=== PATIENT | male | born 1935 | race African-American/Black ===

== ENCOUNTER 2018-03-31 20:14 | Inpatient (IN) | payer MEDICARE, OTHER ==
--- NOTE | 2018-03-31 20:55 | ED Physician Chart ---
ED Chief Complaint/HPI - Patient Information Date Seen:: 03/31/18 Time Seen:: 20:50 Chief Complaint:: agitation History of Present Illness:: She has been reportedly combative, agitated, anxious and refusing medications his extended care facility. Allergies:: Allergies Allergy/AdvReac Type Severity Reaction Status Date / Time No Known Allergies Allergy Verified 03/31/18 20:31 Vitals:: Vital Signs - 8 hr 03/31/18 20:15 Temp 98.2 F HR 66 RR 17 BP 206/89 O2 Sat % 97 Historian:: Patient ED Review of Systems - Review of Systems General/Constitutional: No fever, No chills, No weight loss, No weakness, No diaphoresis, No edema, No loss of appetite Skin: No skin lesions, No rash, No bruising Head: No headache, No light-headedness Eyes: No loss of vision, No pain, No diplopia ENT: No earache, No nasal drainage, No sore throat, No tinnitus Neck: No neck pain, No swelling, No thyromegaly, No stiffness, No mass noted Cardio Vascular: No chest pain, No palpitations, No PND, No orthopnea, No edema Pulmonary: No SOB, No cough, No sputum, No wheezing GI: No nausea, No vomiting, No diarrhea, No pain, No melena, No hematochezia, No constipation, No hematemesis G/U: No dysuria, No frequency, No hematuria Musculoskeletal: No bone or joint pain, No back pain, No muscle pain Endocrine: No polyuria, No polydipsia Psychiatric: Prior psych history, Anxiety Hematopoietic: No bruising, No lymphadenopathy Allergic/Immuno: No urticaria, No angioedema Neurological: No syncope, No focal symptoms, No weakness, No paresthesia, No headache, No seizure, No dizziness, No confusion, No vertigo ED Past Medical History - Past Medical History Past Medical History: HTN, Dementia, Other (hypercholesterolemia; anal polyp; chronic renal disease; Alzheimer's disease) Family History: Other (unavailable) Social History: Care Facility Surgical History: other (unavailable) Psychiatricy History: Dementia Medication: Reviewed Family Medical History - Family Member Mother History Unknown: Yes ED Physical Exam - Physical Examination General/Constitutional: Well-developed, well-nourished, Alert, No distress Other Gen/Cons comments:: Patient is alert but confused. He does not know the correct year Head: Atraumatic Eyes: Lids, conjuctiva normal Skin: Nl inspection, No rash ENMT: External ears, nose nl, TM canals nl, Nasal exam nl Other ENMT comments:: Poor dental hygiene with some teeth missing and 3/4 peridontal disease Neck: No nuchal rigidity Respiratory: Nl effort/Exclusion, Clear to Auscultation, No Wheeze/Rhonchi/Rales Cardio Vascular: RRR, No murmur, gallop, rubs, NL S1 S2 GI: No tenderness/rebounding/guarding, No organomegaly, No hernia, Nondistended , No mass/bruits Extremities: Normal digits & nails Neuro/Psych: No focal deficits ED Labs/Radiology/EKG Results - Lab Results Results: Laboratory Results WBC 3.6 Th/cmm (4.8-10.8) L 03/31/18 21:05 RBC 4.33 Mil/cmm (3.80-5.80) 03/31/18 21:05 Hgb 12.2 gm/dL (12-16) 03/31/18 21:05 Hct 38.4 % (41.0-60) L 03/31/18 21:05 MCV 88.7 fl (80-99) 03/31/18 21:05 MCH 28.1 pg (27.0-31.0) 03/31/18 21:05 MCHC Differential 31.7 pg (28.0-36.0) 03/31/18 21:05 RDW 12.4 % (11.5-20.0) 03/31/18 21:05 Plt Count 182 Th/cmm (150-400) 03/31/18 21:05 MPV 7.6 fl 03/31/18 21:05 Neutrophils % 50.0 % (40.0-80.0) 03/31/18 21:05 Lymphocytes % 30.6 % (20.0-50.0) 03/31/18 21:05 Monocytes % 14.8 % (2.0-10.0) H 03/31/18 21:05 Eosinophils % 2.5 % (0.0-5.0) 03/31/18 21:05 Basophils % 2.1 % (0.0-2.0) H 03/31/18 21:05 Sodium 142 mEq/L (136-145) 03/31/18 21:05 Potassium 3.9 mEq/L (3.5-5.1) 03/31/18 21:05 Chloride 109 mEq/L (98-107) H 03/31/18 21:05 Carbon Dioxide 27.1 mEq/L (21.0-31.0) 03/31/18 21:05 Anion Gap 9.8 (7.0-16.0) 03/31/18 21:05 BUN 26 mg/dL (7-25) H 03/31/18 21:05 Creatinine 1.3 mg/dL (0.7-1.3) 03/31/18 21:05 Est GFR ( Amer) TNP 03/31/18 21:05 Est GFR (Non-Af Amer) TNP 03/31/18 21:05 BUN/Creatinine Ratio 20.0 03/31/18 21:05 Glucose 98 mg/dL (70-105) 03/31/18 21:05 Whole Bld Lactic Acid 0.85 mmol/L (0.60-1.99) 03/31/18 21:05 Calcium 9.2 mg/dL (8.6-10.3) 03/31/18 21:05 Total Bilirubin 0.3 mg/dL (0.3-1.0) 03/31/18 21:05 AST 11 U/L (13-39) L 03/31/18 21:05 ALT 7 U/L (7-52) 03/31/18 21:05 Alkaline Phosphatase 56 U/L (34-104) 03/31/18 21:05 Total Protein 6.4 gm/dL (6.0-8.3) 03/31/18 21:05 Albumin 3.7 gm/dL (4.2-5.5) L 03/31/18 21:05 Globulin 2.7 gm/dL 03/31/18 21:05 Albumin/Globulin Ratio 1.4 (1.0-1.8) 03/31/18 21:05 Triglycerides 80 mg/dL (<150) 03/31/18 21:05 Cholesterol 150 mg/dL (<200) 03/31/18 21:05 LDL Cholesterol Direct 106 mg/dL (75-193) 03/31/18 21:05 HDL Cholesterol 38 mg/dL (23-92) 03/31/18 21:05 Urine Source CLEAN C 03/31/18 21:33 Urine Color YELLOW 03/31/18 21:33 Urine Clarity CLEAR (CLEAR) 03/31/18 21:33 Urine pH 7.0 (4.6 - 8.0) 03/31/18 21:33 Ur Specific [place] 1.020 (1.005-1.030) 03/31/18 21: Urine Protein NEGATIVE mg/dL (NEGATIVE) 03/31/18 21: Urine Glucose (UA) NEGATIVE mg/dL (NEGATIVE) 03/31/18 21: Urine Ketones NEGATIVE mg/dL (NEGATIVE) 03/31/18 21: Urine Blood NEGATIVE (NEGATIVE) 03/31/18 21: Urine Nitrate NEGATIVE (NEGATIVE) 03/31/18 21: Urine Bilirubin NEGATIVE (NEGATIVE) 03/31/18: Urine Urobilinogen 1.0 E.U./dL (0.2 - 1.0) 03/31/18 21: Ur Leukocyte Esterase NEGATIVE (NEGATIVE) 03/31/18 21:33 Urine RBC NONE SEEN /hpf (0-5) 03/31/18 21:33 Urine WBC 2-5 /hpf (0-5) 03/31/18 21:33 Ur Epithelial Cells NONE SEEN /lpf (FEW) 03/31/18 21:33 Urine Bacteria FEW /hpf (NONE SEEN) 03/31/18 21:33 Salicylates < 25.0 mg/L (30.0-100.0) L 03/31/18 21: Urine Opiates Screen NEGATIVE (NEGATIVE) 03/31/18 21:33 Urine Methadone Screen NEGATIVE (NEGATIVE) 03/31/18 21: Acetaminophen < 10.0 ug/mL (10.0-30.0) L 03/31/18 21: Ur Barbiturates Screen NEGATIVE (NEGATIVE) 03/31/18 21:33 Ur Tricyclics Screen NEGATIVE (NEGATIVE) 03/31/18 21:33 Ur Phencyclidine Scrn NEGATIVE (NEGATIVE) 03/31/18 21:33 Amphetamines Screen NEGATIVE (NEGATIVE) 03/31/18 21: U Methamphetamines Scrn NEGATIVE (NEGATIVE) 03/31/18 21: U Benzodiazepines Scrn NEGATIVE (NEGATIVE) 03/31/18 21:33 U Cocaine Metab Screen NEGATIVE (NEGATIVE) 03/31/18 21:33 U Cannabinoids Screen NEGATIVE (NEGATIVE) 03/31/18 21:33 Ethyl Alcohol < 10 mg/dL (0-10) 03/31/18 21:05 - EKG Interpretations Rate & Rhythm: normal sinus rhythm with a rate of 64 [place]: normal ED Septic Shock - . Is Septic Shock (SBP<90, OR Lactate>4 mmol\L) present?: No - <6hrs of presentation: Vital Signs: Vital Signs - 8 hr 03/31/18 20:15 Temp 98.2 F HR 66 RR 17 BP 206/89 O2 Sat % 97 ED Reassessment (Disposition) - Reassessment Reassessment Condition:: Improved - Diagnosis Diagnosis:: Dementia with agitation; hypertension; leukemia - Patient Disposition Admitted to:: [facility] Admitting Medical Physician:: Lionel Quesada Admitting Psych Physician:: Janice Yi Condition at Disposition:: Stable, Improved
[2018-03-31 21:11] LABS: % BASOPHILS 2.1 % (0.0-2.0); % EOSINOPHILS 2.5 % (0.0-5.0); % LYMPHOCYTES 30.6 % (20.0-50.0); % MONOCYTES 14.8 % (2.0-10.0); BASOPHILE ABSOLUTE 0.1 Th/cumm (0-0.2); EOSINOPHILE ABSOLUTE 0.1 Th/cmm (0.1-0.4); HEMATOCRIT 38.4 % (41.0-60); HEMOGLOBIN 12.2 gm/dL (12-16); LYMPHOCYTE ABSOLUTE 1.1 Th/cmm (1.5-3.0); MEAN CELL VOLUME 88.7 fl (80-99); MEAN CORPUSCULAR HEMOGLOBIN 28.1 pg (27.0-31.0); MEAN CORPUSCULAR HGB CONC 31.7 pg (28.0-36.0); MEAN PLATELET VOLUME 7.6 fl; MONOCYTE ABSOLUTE 0.5 Th/cmm (0.3-1.0); NEUTROPHILE ABSOLUTE 1.8 Th/cmm (1.8-8.0); PLATELET COUNT 182 Th/cmm (150-400); RED BLOOD COUNT 4.33 Mil/cmm (3.80-5.80); RED CELL DISTRIBUTION WIDTH 12.4 % (11.5-20.0)
[2018-03-31 21:21] LABS: WHITE BLOOD COUNT 3.6 Th/cmm (4.8-10.8)
[2018-03-31 21:27] LABS: ALB/GLOB RATIO 1.4 (1.0-1.8); ALBUMIN 3.7 gm/dL (4.2-5.5); ALKALINE PHOSPHATASE 56 U/L (34-104); ANION GAP 9.8 (7.0-16.0); BILIRUBIN,TOTAL 0.3 mg/dL (0.3-1.0); BUN - UREA NITROGEN 26 mg/dL (7-25); CALCIUM SERUM 9.2 mg/dL (8.6-10.3); CARBON DIOXIDE 27.1 mEq/L (21.0-31.0); CHLORIDE 109 mEq/L (98-107); CHOLESTEROL 150 mg/dL (<200); CREATININE - SERUM 1.3 mg/dL (0.7-1.3); GLUCOSE 98 mg/dL (70-105); HDL -HIGH DENSITY LIPOPROTEIN 38 mg/dL (23-92); POTASSIUM SERUM 3.9 mEq/L (3.5-5.1); SALICYLATES (ASPIRIN) < 25.0 mg/L (30.0-100.0); SGOT 11 U/L (13-39); SGPT/ALT 7 U/L (7-52); SODIUM SERUM 142 mEq/L (136-145); TOTAL PROTEIN,SERUM 6.4 gm/dL (6.0-8.3); TRIGLYCERIDES 80 mg/dL (<150)
[2018-03-31 21:31] LABS: ACETAMINOPHEN < 10.0 ug/mL (10.0-30.0)
[2018-03-31 21:40] LABS: URINE SOURCE CLEAN C
[2018-03-31 21:45] LABS: URINE BILIRUBIN NEGATIVE (NEGATIVE); URINE BLOOD NEGATIVE (NEGATIVE); URINE GLUCOSE (UA) NEGATIVE (NEGATIVE); URINE KETONE NEGATIVE (NEGATIVE); URINE LEUKOCYTE ESTERASE NEGATIVE (NEGATIVE); URINE NITRATE NEGATIVE (NEGATIVE); URINE PROTEIN NEGATIVE (NEGATIVE)
[2018-03-31 21:50] LABS: URINE CLARITY CLEAR (CLEAR); URINE COLOR YELLOW; URINE MICROSCOPIC INDICATED? YES
[2018-03-31 21:51] LABS: URINE BACTERIA FEW /hpf (NONE SEEN); URINE EPITHELIAL CELLS NONE SEEN /lpf (FEW); URINE RBC NONE SEEN /hpf (0-5)
[2018-03-31 21:53] LABS: AMPHETAMINE URINE NEGATIVE (NEGATIVE); BARBITURATES URINE NEGATIVE (NEGATIVE); COCAINE METABOLITE QUAL URINE NEGATIVE (NEGATIVE); METHAMPHETAMINES QUAL URINE NEGATIVE (NEGATIVE); OPIATES (MORPHINE) QUAL. URINE NEGATIVE (NEGATIVE); PHENCYCLIDINE (PCP) URINE NEGATIVE (NEGATIVE); TRICYCLICS (TCA) QUAL. URINE NEGATIVE (NEGATIVE)
[2018-03-31 21:54] LABS: BENZODIAZEPINES QUAL URINE NEGATIVE (NEGATIVE); CANNABINOID THC NEGATIVE (NEGATIVE); METHADONE URINE NEGATIVE (NEGATIVE)
[2018-03-31 22:52] VITALS: BP 186/67
[2018-03-31] MEDS ORDERED: Maalox 30 mL Cup PO PRN (22:52)
[2018-03-31] MEDS ORDERED: Magnesium Hydroxide (MOM) 30 mL UDC PO PRN (22:52)
[2018-03-31 23:36] LABS: CHOLESTEROL 153 mg/dL (<200); HDL -HIGH DENSITY LIPOPROTEIN 38 mg/dL (23-92); TRIGLYCERIDES 86 mg/dL (<150)
[2018-04-01] MEDS: Multivitamin Tab PO SCH (09:48)
--- NOTE | 2018-04-01 11:02 | History & Physical ---
ADMIT DATE: 04/01/2018 HISTORY OF PRESENT ILLNESS: The patient is severely agitated and anxious. The patient was refusing his medications and very hostile. The patient was brought to the Emergency Room at [facility] for psych evaluation. He was medically cleared and was admitted. REVIEW OF SYSTEMS: No nausea, no vomiting, no diarrhea, no polyuria, no polydipsia. PAST MEDICAL HISTORY: History of hypertension, dementia, history of chronic renal failure. PHYSICAL EXAMINATION: HEAD: Normal. ENT: Normal. NECK: Supple, nontender. LUNGS: Clear. CARDIOVASCULAR SYSTEM: S1, S2 heard. ABDOMEN: Soft. Bowel sounds are heard. CENTRAL NERVOUS SYSTEM: Grossly normal. ASSESSMENT AND PLAN: Diagnoses of severe agitation, underlying dementia, hypertension, history of leukemia were made. The patient was admitted and I will follow the patient along with psychiatrist. JOB# [id number]
[2018-04-02] MEDS: Multivitamin Tab PO SCH (09:39)
--- NOTE | 2018-04-02 10:19 | Internal Medicine Prog Note ---
Internal Medicine Subjective - Subjective Patient seen and examined:: chart reviewed Patient is:: awake, agitated, other (anxious) Per staff patient has:: no episodes of fall Internal Medicine Objective - Results Result Diagrams: 03/31/18 21:05 03/31/18 21: Recent Labs: Laboratory Last Values WBC 3.6 Th/cmm (4.8-10.8) L 03/31/18 21:05 RBC 4.33 Mil/cmm (3.80-5.80) 03/31/18 21:05 Hgb 12.2 gm/dL (12-16) 03/31/18 21:05 Hct 38.4 % (41.0-60) L 03/31/18 21: MCV 88.7 fl (80-99) 03/31/18 21:05 MCH 28.1 pg (27.0-31.0) 03/31/18 21: MCHC Differential 31.7 pg (28.0-36.0) 03/31/18 21:05 RDW 12.4 % (11.5-20.0) 03/31/18 21:05 Plt Count 182 Th/cmm (150-400) 03/31/18 21:05 MPV 7.6 fl 03/31/18 21:05 Neutrophils % 50.0 % (40.0-80.0) 03/31/18 21:05 Lymphocytes % 30.6 % (20.0-50.0) 03/31/18 21: Monocytes % 14.8 % (2.0-10.0) H 03/31/18 21:05 Eosinophils % 2.5 % (0.0-5.0) 03/31/18 21:05 Basophils % 2.1 % (0.0-2.0) H 03/31/18 21:05 Sodium 142 mEq/L (136-145) 03/31/18 21:05 Potassium 3.9 mEq/L (3.5-5.1) 03/31/18 21:05 Chloride 109 mEq/L (98-107) H 03/31/18 21:05 Carbon Dioxide 27.1 mEq/L (21.0-31.0) 03/31/18 21:05 Anion Gap 9.8 (7.0-16.0) 03/31/18 21:05 BUN 26 mg/dL (7-25) H 03/31/18 21:05 Creatinine 1.3 mg/dL (0.7-1.3) 03/31/18 21:05 Est GFR ( Amer) TNP 03/31/18 21:05 Est GFR (Non-Af Amer) TNP 03/31/18 21:05 BUN/Creatinine Ratio 20.0 03/31/18 21:05 Glucose 98 mg/dL (70-105) 03/31/18 21:05 Whole Bld Lactic Acid 0.85 mmol/L (0.60-1.99) 03/31/18 21:05 Calcium 9.2 mg/dL (8.6-10.3) 03/31/18 21: Total Bilirubin 0.3 mg/dL (0.3-1.0) 03/31/18 21:05 AST 11 U/L (13-39) L 03/31/18 21:05 ALT 7 U/L (7-52) 03/31/18 21: Alkaline Phosphatase 56 U/L (34-104) 03/31/18 21:05 Total Protein 6.4 gm/dL (6.0-8.3) 03/31/18 21: Albumin 3.7 gm/dL (4.2-5.5) L 03/31/18 21: Globulin 2.7 gm/dL 03/31/18 21: Albumin/Globulin Ratio 1.4 (1.0-1.8) 03/31/18 21:05 Triglycerides 86 mg/dL (<150) 03/31/18 21:05 Cholesterol 153 mg/dL (<200) 03/31/18 21:05 LDL Cholesterol Direct 108 mg/dL (75-193) 03/31/18 21:05 HDL Cholesterol 38 mg/dL (23-92) 03/31/18 21: TSH 1.95 uIU/ml (0.34-5.60) 03/31/18 21:05 Urine Source CLEAN C 03/31/18 21:33 Urine Color YELLOW 03/31/18 21: Urine Clarity CLEAR (CLEAR) 03/31/18 21: Urine pH 7.0 (4.6 - 8.0) 03/31/18 21: Ur Specific [place] 1.020 (1.005-1.030) 03/31/18 21:33 Urine Protein NEGATIVE mg/dL (NEGATIVE) 03/31/18 21: Urine Glucose (UA) NEGATIVE mg/dL (NEGATIVE) 03/31/18 21: Urine Ketones NEGATIVE mg/dL (NEGATIVE) 03/31/18 21:33 Urine Blood NEGATIVE (NEGATIVE) 03/31/18 21: Urine Nitrate NEGATIVE (NEGATIVE) 03/31/18 21: Urine Bilirubin NEGATIVE (NEGATIVE) 03/31/18 21: Urine Urobilinogen 1.0 E.U./dL (0.2 - 1.0) 03/31/18 21:33 Ur Leukocyte Esterase NEGATIVE (NEGATIVE) 03/31/18: Urine RBC NONE SEEN /hpf (0-5) 03/31/18: Urine WBC 2-5 /hpf (0-5) 03/31/18 21:33 Ur Epithelial Cells NONE SEEN /lpf (FEW) 03/31/18: Urine Bacteria FEW /hpf (NONE SEEN) 03/31/18 21: Salicylates < 25.0 mg/L (30.0-100.0) L 03/31/18 21:05 Urine Opiates Screen NEGATIVE (NEGATIVE) 03/31/18 21:33 Urine Methadone Screen NEGATIVE (NEGATIVE) 03/31/18 21: Acetaminophen < 10.0 ug/mL (10.0-30.0) L 03/31/18 21:05 Ur Barbiturates Screen NEGATIVE (NEGATIVE) 03/31/18 21:33 Ur Tricyclics Screen NEGATIVE (NEGATIVE) 03/31/18 21:33 Ur Phencyclidine Scrn NEGATIVE (NEGATIVE) 03/31/18 21:33 Amphetamines Screen NEGATIVE (NEGATIVE) 03/31/18 21:33 U Methamphetamines Scrn NEGATIVE (NEGATIVE) 03/31/18 21: U Benzodiazepines Scrn NEGATIVE (NEGATIVE) 03/31/18 21: U Cocaine Metab Screen NEGATIVE (NEGATIVE) 03/31/18 21: U Cannabinoids Screen NEGATIVE (NEGATIVE) 03/31/18 21:33 Ethyl Alcohol < 10 mg/dL (0-10) 03/31/18 21:05 - Physical Exam Vitals and I&O: Vital Signs Temp 0 F 04/02/18 06:10 Pulse 51 04/02/18 09:40 Resp 20 04/01/18 20:20 BP 173/70 04/02/18 09:40 Pulse Ox 97 04/01/18 20:20 Intake & Output 04/01/18 04/02/18 04/02/18 18:59 06:59 18:59 Intake Total 960 240 Balance 960 240 Weight (lbs) 113.398 kg Intake: Oral 960 240 Other: # Voids 4 3 # Bowel Movements 1 0 Weight Source Bedscale Active Medications: Current Medications Acetaminophen (Tylenol) 650 mg PO Q4HR PRN PRN Reason: Mild Pain / Temp above 100 Stop: 05/30/18 22:51 Al Hydrox/Mg Hydrox/Simethicone (Maalox) 30 ml PO Q4HR PRN PRN Reason: GI DISTRESS Stop: 05/30/18 22:51 Amlodipine Besylate (Norvasc) 10 mg PO DAILY [facility] Stop: 05/31/18 08:59 Last Admin: 04/02/18 09:39 Dose: 10 mg Baclofen (Lioresal) 5 mg PO DAILY BETH Stop: 05/31/18 08:59 Last Admin: 04/02/18 09:38 Dose: 5 mg Docusate Sodium (Colace) 100 mg PO BID BETH Stop: 05/31/18 08:59 Last Admin: 04/02/18 09:38 Dose: 100 mg Hydralazine HCl (Apresoline) 10 mg PO Q8H [facility] Stop: 05/30/18 23:14 Last Admin: 04/02/18 06:46 Dose: Not Given Lorazepam (Ativan) 0.5 mg PO Q4HR PRN; Protocol PRN Reason: Anxiety Stop: 04/30/18 22:51 Losartan Potassium (Cozaar) 100 mg PO DAILY [facility] Stop: 05/31/18 08:59 Last Admin: 04/02/18 09:40 Dose: 100 mg Magnesium Hydroxide (Milk Of Magnesia) 30 ml PO HS PRN PRN Reason: Constipation Multivitamins/Vitamin C (Theragran) 1 tab PO DAILY [facility] Stop: 05/31/18 08:59 Last Admin: 04/02/18 09:39 Dose: 1 tab Quetiapine Fumarate (Seroquel) 50 mg PO HS BETH; Protocol Stop: 05/31/18 20:59 Last Admin: 04/01/18 20:57 Dose: 50 mg Trazodone HCl (Desyrel) 50 mg PO HS BETH; Protocol Stop: 05/31/18 20:59 Last Admin: 04/01/18 20:57 Dose: 50 mg General: demented HEENT: NC/AT Neck: Supple Lungs: CTAB Cardiovascular: RRR, Normal S1, Normal S2 Abdomen: soft Extremities: clear Neurological: no change Internal Medicine Assmt/Plan - Assessment Assessment: severe agitation dementia htn h/o leukemia - Plan Plan: as per psych will monitor labs vitals diet review meds
--- NOTE | 2018-04-02 20:21 | Progress Notes ---
DATE: SUBJECTIVE: The patient was seen, chart reviewed, and findings were discussed with staff. The patient continues to be very irritable, hostile, refusing to answer any questions. According to staff, the patient requires numerous redirections, but has been compliant with medications. Generally self-isolating in his room. PLAN: The patient continues to be very agitated, will require continued inpatient care center treatment. We will monitor patient on a daily basis for response to medications and titrate meds as needed. JOB# [id number]
[2018-04-03] MEDS: Multivitamin Tab PO SCH (09:08)
--- NOTE | 2018-04-03 11:28 | Internal Medicine Prog Note ---
Internal Medicine Subjective - Subjective Patient seen and examined:: chart reviewed Patient is:: awake, other (pt continues to be anxious,aguitated) Per staff patient has:: no episodes of fall Internal Medicine Objective - Results Result Diagrams: 03/31/18 21:05 03/31/18 21:05 Recent Labs: Laboratory Last Values WBC 3.6 Th/cmm (4.8-10.8) L 03/31/18 21:05 RBC 4.33 Mil/cmm (3.80-5.80) 03/31/18 21:05 Hgb 12.2 gm/dL (12-16) 03/31/18 21:05 Hct 38.4 % (41.0-60) L 03/31/18: MCV 88.7 fl (80-99) 03/31/18 21:05 MCH 28.1 pg (27.0-31.0) 03/31/18: MCHC Differential 31.7 pg (28.0-36.0) 03/31/18 21:05 RDW 12.4 % (11.5-20.0) 03/31/18 21:05 Plt Count 182 Th/cmm (150-400) 03/31/18 21:05 MPV 7.6 fl 03/31/18 21:05 Neutrophils % 50.0 % (40.0-80.0) 03/31/18 21:05 Lymphocytes % 30.6 % (20.0-50.0) 03/31/18 21: Monocytes % 14.8 % (2.0-10.0) H 03/31/18 21:05 Eosinophils % 2.5 % (0.0-5.0) 03/31/18 21:05 Basophils % 2.1 % (0.0-2.0) H 03/31/18 21:05 Sodium 142 mEq/L (136-145) 03/31/18 21:05 Potassium 3.9 mEq/L (3.5-5.1) 03/31/18 21:05 Chloride 109 mEq/L (98-107) H 03/31/18 21:05 Carbon Dioxide 27.1 mEq/L (21.0-31.0) 03/31/18 21:05 Anion Gap 9.8 (7.0-16.0) 03/31/18 21:05 BUN 26 mg/dL (7-25) H 03/31/18 21:05 Creatinine 1.3 mg/dL (0.7-1.3) 03/31/18 21:05 Est GFR ( Amer) TNP 03/31/18 21:05 Est GFR (Non-Af Amer) TNP 03/31/18 21:05 BUN/Creatinine Ratio 20.0 03/31/18 21:05 Glucose 98 mg/dL (70-105) 03/31/18 21:05 POC Glucose 169 MG/DL (70 - 105) H 04/02/18 20:51 Whole Bld Lactic Acid 0.85 mmol/L (0.60-1.99) 03/31/18 21:05 Calcium 9.2 mg/dL (8.6-10.3) 03/31/18 21:05 Total Bilirubin 0.3 mg/dL (0.3-1.0) 03/31/18 21:05 AST 11 U/L (13-39) L 03/31/18 21:05 ALT 7 U/L (7-52) 03/31/18 21:05 Alkaline Phosphatase 56 U/L (34-104) 03/31/18 21:05 Total Protein 6.4 gm/dL (6.0-8.3) 03/31/18 21:05 Albumin 3.7 gm/dL (4.2-5.5) L 03/31/18 21:05 Globulin 2.7 gm/dL 03/31/18 21:05 Albumin/Globulin Ratio 1.4 (1.0-1.8) 03/31/18 21:05 Triglycerides 86 mg/dL (<150) 03/31/18 21:05 Cholesterol 153 mg/dL (<200) 03/31/18 21:05 LDL Cholesterol Direct 108 mg/dL (75-193) 03/31/18 21:05 HDL Cholesterol 38 mg/dL (23-92) 03/31/18 21:05 TSH 1.95 uIU/ml (0.34-5.60) 03/31/18 21:05 Urine Source CLEAN C 03/31/18 21:33 Urine Color YELLOW 03/31/18 21:33 Urine Clarity CLEAR (CLEAR) 03/31/18 21:33 Urine pH 7.0 (4.6 - 8.0) 03/31/18 21:33 Ur Specific [place] 1.020 (1.005-1.030) 03/31/18 21:33 Urine Protein NEGATIVE mg/dL (NEGATIVE) 03/31/18 21:33 Urine Glucose (UA) NEGATIVE mg/dL (NEGATIVE) 03/31/18 21: Urine Ketones NEGATIVE mg/dL (NEGATIVE) 03/31/18 21: Urine Blood NEGATIVE (NEGATIVE) 03/31/18 21: Urine Nitrate NEGATIVE (NEGATIVE) 03/31/18 21: Urine Bilirubin NEGATIVE (NEGATIVE) 03/31/18 21: Urine Urobilinogen 1.0 E.U./dL (0.2 - 1.0) 03/31/18 21: Ur Leukocyte Esterase NEGATIVE (NEGATIVE) 03/31/18 21:33 Urine RBC NONE SEEN /hpf (0-5) 03/31/18 21: Urine WBC 2-5 /hpf (0-5) 03/31/18 21:33 Ur Epithelial Cells NONE SEEN /lpf (FEW) 03/31/18 21:33 Urine Bacteria FEW /hpf (NONE SEEN) 03/31/18 21: Salicylates < 25.0 mg/L (30.0-100.0) L 03/31/18 21:05 Urine Opiates Screen NEGATIVE (NEGATIVE) 03/31/18 21: Urine Methadone Screen NEGATIVE (NEGATIVE) 03/31/18 21: Acetaminophen < 10.0 ug/mL (10.0-30.0) L 03/31/18 21:05 Ur Barbiturates Screen NEGATIVE (NEGATIVE) 03/31/18 21:33 Ur Tricyclics Screen NEGATIVE (NEGATIVE) 03/31/18 21:33 Ur Phencyclidine Scrn NEGATIVE (NEGATIVE) 03/31/18 21:33 Amphetamines Screen NEGATIVE (NEGATIVE) 03/31/18 21: U Methamphetamines Scrn NEGATIVE (NEGATIVE) 03/31/18 21: U Benzodiazepines Scrn NEGATIVE (NEGATIVE) 03/31/18 21: U Cocaine Metab Screen NEGATIVE (NEGATIVE) 03/31/18 21: U Cannabinoids Screen NEGATIVE (NEGATIVE) 03/31/18 21: Ethyl Alcohol < 10 mg/dL (0-10) 03/31/18 21:05 RPR NONREACTIVE (NONREACTIVE) 03/31/18 21:05 - Physical Exam Vitals and I&O: Vital Signs Temp 97.6 F 04/03/18 06:42 Pulse 83 04/03/18 09:07 Resp 20 04/03/18 06:42 BP 146/98 04/03/18 09:07 Pulse Ox 98 04/03/18 06:42 Intake & Output 04/02/18 04/03/18 04/03/18 18:59 06:59 18:59 Intake Total 1200 120 Balance 1200 120 Intake: Oral 1200 120 Other: # Voids 4 3 # Bowel Movements 0 Active Medications: Current Medications Acetaminophen (Tylenol) 650 mg PO Q4HR PRN PRN Reason: Mild Pain / Temp above 100 Stop: 05/30/18 22:51 Al Hydrox/Mg Hydrox/Simethicone (Maalox) 30 ml PO Q4HR PRN PRN Reason: GI DISTRESS Stop: 05/30/18 22:51 Amlodipine Besylate (Norvasc) 10 mg PO DAILY BETH Stop: 05/31/18 08:59 Last Admin: 04/03/18 09:07 Dose: 10 mg Baclofen (Lioresal) 5 mg PO DAILY B[facility] Stop: 05/31/18 08:59 Last Admin: 04/03/18 09:08 Dose: 5 mg Docusate Sodium (Colace) 100 mg PO BID BETH Stop: 05/31/18 08:59 Last Admin: 04/03/18 09:08 Dose: 100 mg Hydralazine HCl (Apresoline) 10 mg PO Q8H [facility] Stop: 05/30/18 23:14 Last Admin: 04/03/18 07:20 Dose: 10 mg Lorazepam (Ativan) 0.5 mg PO Q4HR PRN; Protocol PRN Reason: Anxiety Stop: 04/30/18 22:51 Last Admin: 04/03/18 09:08 Dose: 0.5 mg Losartan Potassium (Cozaar) 100 mg PO DAILY B[facility] Stop: 05/31/18 08:59 Last Admin: 04/03/18 09:07 Dose: 100 mg Magnesium Hydroxide (Milk Of Magnesia) 30 ml PO HS PRN PRN Reason: Constipation Multivitamins/Vitamin C (Theragran) 1 tab PO DAILY BETH Stop: 05/31/18 08:59 Last Admin: 04/03/18 09:08 Dose: 1 tab Quetiapine Fumarate (Seroquel) 50 mg PO HS BETH; Protocol Stop: 05/31/18 20:59 Last Admin: 04/02/18 20:41 Dose: 50 mg Trazodone HCl (Desyrel) 50 mg PO HS BETH; Protocol Stop: 05/31/18 20:59 Last Admin: 04/02/18 20:41 Dose: 50 mg General: demented HEENT: NC/AT Neck: Supple Lungs: CTAB Cardiovascular: RRR, Normal S1, Normal S2 Abdomen: soft Extremities: clear Neurological: no change Internal Medicine Assmt/Plan - Assessment Assessment: severe agitation dementia htn h/o leukemia - Plan Plan: as per psych will monitor labs vitals diet review meds Nutritional Asmnt/Malnutr-PDOC - Dietary Evaluation Malnutrition Findings (Please click <Entered> for more info): Nutritional Asmnt/Malnutrition Start: 04/02/18 15: 16 Text: Status: Complete Freq: Protocol: Document 04/02/18 15:17 [email or web address] (Rec: 04/02/18 15:38 [email or web address] [email or web address]) Nutritional Asmnt/Malnutrition Patient General Information Nutritional Screening Moderate Risk Diagnosis Psychosis Pertinent Medical Hx/Surgical Hx (per Admission notes:) Transient alteration of awareness, Altered mental status, Essential (Primary) HTN, Pure hypercholesterolemia , Anal polyp, Cerebrovascular disease (unspecified), Syncope and Collapse, Chronic Kidney Disease, BPH without lower urinary tract symptoms, Dementia, Alzheimer's Disease. Subjective Information Pt was sent here by [facility]. He was fast asleep at the time of visit. Spoke to DESTINY Chun about his intake. Pt's KENNEL SUPERVISOR was nearby and confirmed that his PO intake is excellent and ~ 100%. There are no records of B.M.s, but the pt does visit the bathroom by himself, so there is no way to be certain if he is contipated. Current Diet Order/ Nutrition Support [facility] Soft Chopped (Large portion [place]) Patient / S.O Not Indicated Pertinent Medications Docusate, MultiVit C, Seroquel , Trazodone Pertinent Labs (03/31) Cl - 109 H, BUN 26 H, AST 11 L, Alb 3.7 L Nutritional Hx/Data Height 1.78 m Height (Calculated Centimeters) 177.8 Current Weight (lbs) 113.398 kg Weight (Calculated Kilograms) 113.4 Weight (Calculated Grams) 332539.1 [place] Body Weight 166 % [place] Body Weight 151 Body Mass Index (BMI) 35.9 Weight Status Obese GI Symptoms Last BM None noted Food Allergies No Cultural/Ethnic/Denominational Belief None noted. Skin Integrity/Comment: Armando score 18 Estimated Nutritional Goals BEE in Kcals: Adj wt of IBW Calories/Kcals/Kg 25-30 Kcals Calculated 7499-8340 Protein: Adj wt of IBW Protein g/k.8-1 Protein Calculated 68-85 Fluid: ml 1498-5986 Nutritional Problem No current Nutrition Prob Problem N/A Malnutrition Alert Is there a minimum of two criteria No selected? Query Text:Check all the applicable criteria. A minimum of two criteria are recommended for diagnosis of either severe or non-severe malnutrition. Malnutrition Related to Morbid Obesity Malnutrition related to morbid obesity No Intervention/Recommendation Comments Recommend continuing diet as prescribed. Expected Outcomes/Goals Expected Outcomes/Goals - Maintain 100% PO intake - Labs return to WNL - GI function normal - Wt maintenance - Skin integrity WNL
--- NOTE | 2018-04-04 04:30 | Progress Notes ---
DATE: SUBJECTIVE: The patient was seen, chart reviewed, and findings were discussed with the staff. The patient continues to be very irritable, confused with poor impulse control, refused to answer most questions today same as yesterday. The patient has been compliant with medications. Denies any undue side effects. PLAN: The patient continues to be irritable, unpredictable and confused, so that he will require inpatient care center treatment. We will monitor on a daily basis for response to medications and titrate meds as needed. JOB# [id number]
[2018-04-04] MEDS: Multivitamin Tab PO SCH (08:46)
--- NOTE | 2018-04-04 11:15 | Internal Medicine Prog Note ---
Internal Medicine Subjective - Subjective Service Date: 04/04/18 Patient seen and examined:: with staff, chart reviewed Patient is:: awake, verbal, agitated, other (pt continues to be anxious, aguitated) Patient Complaints of:: other (Hx of Dementia.) Per staff patient has:: no adverse event, no episodes of fall, agitated Internal Medicine Objective - Results Result Diagrams: 03/31/18 21:05 03/31/18 21: Recent Labs: Laboratory Last Values WBC 3.6 Th/cmm (4.8-10.8) L 03/31/18 21:05 RBC 4.33 Mil/cmm (3.80-5.80) 03/31/18 21:05 Hgb 12.2 gm/dL (12-16) 03/31/18 21: Hct 38.4 % (41.0-60) L 03/31/18 21:05 MCV 88.7 fl (80-99) 03/31/18 21:05 MCH 28.1 pg (27.0-31.0) 03/31/18 21:05 MCHC Differential 31.7 pg (28.0-36.0) 03/31/18 21:05 RDW 12.4 % (11.5-20.0) 03/31/18 21: Plt Count 182 Th/cmm (150-400) 03/31/18 21:05 MPV 7.6 fl 03/31/18 21:05 Neutrophils % 50.0 % (40.0-80.0) 03/31/18 21: Lymphocytes % 30.6 % (20.0-50.0) 03/31/18 21:05 Monocytes % 14.8 % (2.0-10.0) H 03/31/18 21:05 Eosinophils % 2.5 % (0.0-5.0) 03/31/18 21: Basophils % 2.1 % (0.0-2.0) H 03/31/18 21:05 Sodium 142 mEq/L (136-145) 03/31/18 21:05 Potassium 3.9 mEq/L (3.5-5.1) 03/31/18 21:05 Chloride 109 mEq/L (98-107) H 03/31/18 21:05 Carbon Dioxide 27.1 mEq/L (21.0-31.0) 03/31/18 21:05 Anion Gap 9.8 (7.0-16.0) 03/31/18 21:05 BUN 26 mg/dL (7-25) H 03/31/18 21:05 Creatinine 1.3 mg/dL (0.7-1.3) 03/31/18 21:05 Est GFR ( Amer) TNP 03/31/18 21:05 Est GFR (Non-Af Amer) TNP 03/31/18 21:05 BUN/Creatinine Ratio 20.0 03/31/18 21:05 Glucose 98 mg/dL (70-105) 03/31/18 21:05 POC Glucose 169 MG/DL (70 - 105) H 04/02/18 20:51 Whole Bld Lactic Acid 0.85 mmol/L (0.60-1.99) 03/31/18 21:05 Calcium 9.2 mg/dL (8.6-10.3) 03/31/18 21:05 Total Bilirubin 0.3 mg/dL (0.3-1.0) 03/31/18 21:05 AST 11 U/L (13-39) L 03/31/18 21:05 ALT 7 U/L (7-52) 03/31/18 21:05 Alkaline Phosphatase 56 U/L (34-104) 03/31/18 21:05 Total Protein 6.4 gm/dL (6.0-8.3) 03/31/18 21:05 Albumin 3.7 gm/dL (4.2-5.5) L 03/31/18 21:05 Globulin 2.7 gm/dL 03/31/18 21:05 Albumin/Globulin Ratio 1.4 (1.0-1.8) 03/31/18 21:05 Triglycerides 86 mg/dL (<150) 03/31/18 21:05 Cholesterol 153 mg/dL (<200) 03/31/18 21:05 LDL Cholesterol Direct 108 mg/dL (75-193) 03/31/18 21:05 HDL Cholesterol 38 mg/dL (23-92) 03/31/18 21:05 TSH 1.95 uIU/ml (0.34-5.60) 03/31/18 21:05 Urine Source CLEAN C 03/31/18 21:33 Urine Color YELLOW 03/31/18 21:33 Urine Clarity CLEAR (CLEAR) 03/31/18 21: Urine pH 7.0 (4.6 - 8.0) 03/31/18 21: Ur Specific [place] 1.020 (1.005-1.030) 03/31/18 21:33 Urine Protein NEGATIVE mg/dL (NEGATIVE) 03/31/18 21: Urine Glucose (UA) NEGATIVE mg/dL (NEGATIVE) 03/31/18 21: Urine Ketones NEGATIVE mg/dL (NEGATIVE) 03/31/18 21: Urine Blood NEGATIVE (NEGATIVE) 03/31/18 21: Urine Nitrate NEGATIVE (NEGATIVE) 03/31/18: Urine Bilirubin NEGATIVE (NEGATIVE) 03/31/18: Urine Urobilinogen 1.0 E.U./dL (0.2 - 1.0) 03/31/18 21:33 Ur Leukocyte Esterase NEGATIVE (NEGATIVE) 03/31/18: Urine RBC NONE SEEN /hpf (0-5) 03/31/18:33 Urine WBC 2-5 /hpf (0-5) 03/31/18 21:33 Ur Epithelial Cells NONE SEEN /lpf (FEW) 03/31/18:33 Urine Bacteria FEW /hpf (NONE SEEN) 03/31/18 21: Salicylates < 25.0 mg/L (30.0-100.0) L 03/31/18 21:05 Urine Opiates Screen NEGATIVE (NEGATIVE) 03/31/18: Urine Methadone Screen NEGATIVE (NEGATIVE) 03/31/18: Acetaminophen < 10.0 ug/mL (10.0-30.0) L 03/31/18 21:05 Ur Barbiturates Screen NEGATIVE (NEGATIVE) 03/31/18 21:33 Ur Tricyclics Screen NEGATIVE (NEGATIVE) 03/31/18 21:33 Ur Phencyclidine Scrn NEGATIVE (NEGATIVE) 03/31/18 21: Amphetamines Screen NEGATIVE (NEGATIVE) 03/31/18 21:33 U Methamphetamines Scrn NEGATIVE (NEGATIVE) 03/31/18 21: U Benzodiazepines Scrn NEGATIVE (NEGATIVE) 03/31/18: U Cocaine Metab Screen NEGATIVE (NEGATIVE) 03/31/18 21: U Cannabinoids Screen NEGATIVE (NEGATIVE) 03/31/18 21:33 Ethyl Alcohol < 10 mg/dL (0-10) 03/31/18 21:05 RPR NONREACTIVE (NONREACTIVE) 03/31/18 21:05 - Physical Exam Vitals and I&O: Vital Signs Temp 98.1 F 04/04/18 05:34 Pulse 70 04/04/18 08:49 Resp 19 04/04/18 05:34 BP 170/80 04/04/18 08:49 Pulse Ox 98 04/04/18 05:34 Intake & Output 04/03/18 04/04/18 04/04/18 18:59 06:59 18:59 Intake Total 160 Balance 160 Intake: Oral 160 Other: # Voids 1 # Bowel Movements 0 Active Medications: Current Medications Acetaminophen (Tylenol) 650 mg PO Q4HR PRN PRN Reason: Mild Pain / Temp above 100 Stop: 05/30/18 22:51 Al Hydrox/Mg Hydrox/Simethicone (Maalox) 30 ml PO Q4HR PRN PRN Reason: GI DISTRESS Stop: 05/30/18 22:51 Amlodipine Besylate (Norvasc) 10 mg PO DAILY [facility] Stop: 05/31/18 08:59 Last Admin: 04/04/18 08:49 Dose: 10 mg Baclofen (Lioresal) 5 mg PO DAILY BETH Stop: 05/31/18 08:59 Last Admin: 04/04/18 08:47 Dose: 5 mg Docusate Sodium (Colace) 100 mg PO BID BETH Stop: 05/31/18 08:59 Last Admin: 04/04/18 08:46 Dose: 100 mg Hydralazine HCl (Apresoline) 10 mg PO Q8H [facility]ETH Stop: 05/30/18 23:14 Last Admin: 04/04/18 06:18 Dose: 10 mg Lorazepam (Ativan) 0.5 mg PO Q4HR PRN; Protocol PRN Reason: Anxiety Stop: 04/30/18 22:51 Last Admin: 04/03/18 23:14 Dose: 0.5 mg Losartan Potassium (Cozaar) 100 mg PO DAILY BETH Stop: 05/31/18 08:59 Last Admin: 04/04/18 08:49 Dose: 100 mg Magnesium Hydroxide (Milk Of Magnesia) 30 ml PO HS PRN PRN Reason: Constipation Multivitamins/Vitamin C (Theragran) 1 tab PO DAILY BETH Stop: 05/31/18 08:59 Last Admin: 04/04/18 08:46 Dose: 1 tab Quetiapine Fumarate (Seroquel) 50 mg PO HS BETH; Protocol Stop: 05/31/18 20:59 Last Admin: 04/03/18 21:12 Dose: 50 mg Trazodone HCl (Desyrel) 50 mg PO HS BETH; Protocol Stop: 05/31/18 20:59 Last Admin: 04/03/18 21:12 Dose: 50 mg General: weak, demented HEENT: NC/AT Neck: Supple Lungs: CTAB Cardiovascular: RRR, Normal S1, Normal S2 Abdomen: soft Extremities: clear Neurological: no change, disorganized Internal Medicine Assmt/Plan - Assessment Assessment: severe agitation unpredictable/confused dementia htn h/o leukemia - Plan Plan: as per psych will monitor labs vitals diet review meds Nutritional Asmnt/Malnutr-PDOC - Dietary Evaluation Malnutrition Findings (Please click <Entered> for more info): Nutritional Asmnt/Malnutrition Start: 04/02/18 15: 16 Text: Status: Complete Freq: Protocol: Document 04/02/18 15:17 RHAQUE (Rec: 04/02/18 15:38 [email or web address] [email or web address]) Nutritional Asmnt/Malnutrition Patient General Information Nutritional Screening Moderate Risk Diagnosis Psychosis Pertinent Medical Hx/Surgical Hx (per Admission notes:) Transient alteration of awareness, Altered mental status, Essential (Primary) HTN, Pure hypercholesterolemia , Anal polyp, Cerebrovascular disease (unspecified), Syncope and Collapse, Chronic Kidney Disease, BPH without lower urinary tract symptoms, Dementia, Alzheimer's Disease. Subjective Information Pt was sent here by [facility]. He was fast asleep at the time of visit. Spoke to DESTINY Chun about his intake. Pt's DIAMOND SAWER was nearby and confirmed that his PO intake is excellent and ~ 100%. There are no records of B.M.s, but the pt does visit the bathroom by himself, so there is no way to be certain if he is contipated. Current Diet Order/ Nutrition Support [facility] Soft Chopped (Large portion [place]ERVA) Patient / S.O Not Indicated Pertinent Medications Docusate, MultiVit C, Seroquel , Trazodone Pertinent Labs (03/31) Cl - 109 H, BUN 26 H, AST 11 L, Alb 3.7 L Nutritional Hx/Data Height 1.78 m Height (Calculated Centimeters) 177.8 Current Weight (lbs) 113.398 kg Weight (Calculated Kilograms) 113.4 Weight (Calculated Grams) 776470.1 [place] Body Weight 166 % [place] Body Weight 151 Body Mass Index (BMI) 35.9 Weight Status Obese GI Symptoms Last BM None noted Food Allergies No Cultural/Ethnic/Lutheran Belief None noted. Skin Integrity/Comment: Armando score 18 Estimated Nutritional Goals BEE in Kcals: Adj wt of IBW Calories/Kcals/Kg 25-30 Kcals Calculated 1473-6262 Protein: Adj wt of IBW Protein g/k.8-1 Protein Calculated 68-85 Fluid: ml 1436-4254 Nutritional Problem No current Nutrition Prob Problem N/A Malnutrition Alert Is there a minimum of two criteria No selected? Query Text:Check all the applicable criteria. A minimum of two criteria are recommended for diagnosis of either severe or non-severe malnutrition. Malnutrition Related to Morbid Obesity Malnutrition related to morbid obesity No Intervention/Recommendation Comments Recommend continuing diet as prescribed. Expected Outcomes/Goals Expected Outcomes/Goals - Maintain 100% PO intake - Labs return to WNL - GI function normal - Wt maintenance - Skin integrity WNL
--- NOTE | 2018-04-05 01:00 | Progress Notes ---
DATE: 04/04/2018 Case was discussed with staff of the patient, reviewed records. Covering for Dr. Yi. This is an 83-year-old male who was admitted on 03/31/2018 because of severe agitation, anxiety. The patient has been refusing medication. Continues to be very irritable, confused, poor impulse complete control, unable to answer questions, refusing to answer questions, unpredictable, impulsive, needing redirection. He is on Seroquel 50 mg at bedtime; however, he is not taking his medication. We will continue outpatient group therapy, milieu therapy, adjust medication as needed. JOB# [id number]
[2018-04-05] MEDS: Multivitamin Tab PO SCH (08:48)
--- NOTE | 2018-04-05 20:22 | Progress Notes ---
DATE: 04/05/2018 SUBJECTIVE: Case was discussed with staff of the patient, reviewed records. The patient has taken his medication; apparently, blood pressure has been high. He has been medicated. The patient continues to be irritable, confused, needing redirection, unable to make safe plan for self-care, unpredictable, and impulsive. No side effects with the medication, no sedation, no nausea, and no extrapyramidal symptoms. We will continue to work with the patient in group therapy, milieu therapy, and adjust the medications as needed. JOB# [id number]
--- NOTE | 2018-04-05 21:21 | Internal Medicine Prog Note ---
Internal Medicine Subjective - Subjective Service Date: 04/05/18 Patient is:: awake, verbal, agitated, other (pt continues to be anxious, aguitated) Patient Complaints of:: other (Hx of Dementia.) Per staff patient has:: no adverse event, no episodes of fall, agitated Internal Medicine Objective - Results Result Diagrams: 03/31/18 21:05 03/31/18 21: Recent Labs: Laboratory Last Values WBC 3.6 Th/cmm (4.8-10.8) L 03/31/18 21:05 RBC 4.33 Mil/cmm (3.80-5.80) 03/31/18 21:05 Hgb 12.2 gm/dL (12-16) 03/31/18 21: Hct 38.4 % (41.0-60) L 03/31/18 21: MCV 88.7 fl (80-99) 03/31/18 21:05 MCH 28.1 pg (27.0-31.0) 03/31/18: MCHC Differential 31.7 pg (28.0-36.0) 03/31/18 21:05 RDW 12.4 % (11.5-20.0) 03/31/18 21: Plt Count 182 Th/cmm (150-400) 03/31/18 21:05 MPV 7.6 fl 03/31/18 21:05 Neutrophils % 50.0 % (40.0-80.0) 03/31/18 21: Lymphocytes % 30.6 % (20.0-50.0) 03/31/18 21: Monocytes % 14.8 % (2.0-10.0) H 03/31/18 21:05 Eosinophils % 2.5 % (0.0-5.0) 03/31/18 21: Basophils % 2.1 % (0.0-2.0) H 03/31/18 21:05 Sodium 142 mEq/L (136-145) 03/31/18 21:05 Potassium 3.9 mEq/L (3.5-5.1) 03/31/18 21: Chloride 109 mEq/L (98-107) H 03/31/18 21:05 Carbon Dioxide 27.1 mEq/L (21.0-31.0) 02/21/19 21:05 Anion Gap 9.8 (7.0-16.0) 03/31/18 21:05 BUN 26 mg/dL (7-25) H 03/31/18 21:05 Creatinine 1.3 mg/dL (0.7-1.3) 03/31/18 21:05 Est GFR ( Amer) TNP 03/31/18 21:05 Est GFR (Non-Af Amer) TNP 03/31/18 21:05 BUN/Creatinine Ratio 20.0 03/31/18 21:05 Glucose 98 mg/dL (70-105) 03/31/18 21:05 POC Glucose 169 MG/DL (70 - 105) H 04/02/18 20:51 Whole Bld Lactic Acid 0.85 mmol/L (0.60-1.99) 03/31/18 21:05 Calcium 9.2 mg/dL (8.6-10.3) 03/31/18 21:05 Total Bilirubin 0.3 mg/dL (0.3-1.0) 03/31/18 21:05 AST 11 U/L (13-39) L 03/31/18 21:05 ALT 7 U/L (7-52) 03/31/18 21:05 Alkaline Phosphatase 56 U/L (34-104) 03/31/18 21:05 Total Protein 6.4 gm/dL (6.0-8.3) 03/31/18 21:05 Albumin 3.7 gm/dL (4.2-5.5) L 03/31/18 21:05 Globulin 2.7 gm/dL 03/31/18 21:05 Albumin/Globulin Ratio 1.4 (1.0-1.8) 03/31/18 21:05 Triglycerides 86 mg/dL (<150) 03/31/18 21:05 Cholesterol 153 mg/dL (<200) 03/31/18 21:05 LDL Cholesterol Direct 108 mg/dL (75-193) 03/31/18 21:05 HDL Cholesterol 38 mg/dL (23-92) 03/31/18 21:05 TSH 1.95 uIU/ml (0.34-5.60) 03/31/18 21:05 Urine Source CLEAN C 03/31/18:33 Urine Color YELLOW 03/31/18 21:33 Urine Clarity CLEAR (CLEAR) 03/31/18 21:33 Urine pH 7.0 (4.6 - 8.0) 03/31/18 21:33 Ur Specific [place] 1.020 (1.005-1.030) 03/31/18 21:33 Urine Protein NEGATIVE mg/dL (NEGATIVE) 03/31/18 21:33 Urine Glucose (UA) NEGATIVE mg/dL (NEGATIVE) 03/31/18 21: Urine Ketones NEGATIVE mg/dL (NEGATIVE) 03/31/18 21: Urine Blood NEGATIVE (NEGATIVE) 03/31/18 21: Urine Nitrate NEGATIVE (NEGATIVE) 03/31/18 21: Urine Bilirubin NEGATIVE (NEGATIVE) 03/31/18: Urine Urobilinogen 1.0 E.U./dL (0.2 - 1.0) 03/31/18 21:33 Ur Leukocyte Esterase NEGATIVE (NEGATIVE) 03/31/18 21:33 Urine RBC NONE SEEN /hpf (0-5) 03/31/18 21:33 Urine WBC 2-5 /hpf (0-5) 03/31/18 21:33 Ur Epithelial Cells NONE SEEN /lpf (FEW) 03/31/18 21:33 Urine Bacteria FEW /hpf (NONE SEEN) 03/31/18 21:33 Salicylates < 25.0 mg/L (30.0-100.0) L 03/31/18 21:05 Urine Opiates Screen NEGATIVE (NEGATIVE) 03/31/18 21:33 Urine Methadone Screen NEGATIVE (NEGATIVE) 03/31/18: Acetaminophen < 10.0 ug/mL (10.0-30.0) L 03/31/18 21:05 Ur Barbiturates Screen NEGATIVE (NEGATIVE) 03/31/18 21:33 Ur Tricyclics Screen NEGATIVE (NEGATIVE) 03/31/18 21:33 Ur Phencyclidine Scrn NEGATIVE (NEGATIVE) 03/31/18 21: Amphetamines Screen NEGATIVE (NEGATIVE) 03/31/18 21: U Methamphetamines Scrn NEGATIVE (NEGATIVE) 03/31/18 21:33 U Benzodiazepines Scrn NEGATIVE (NEGATIVE) 03/31/18 21: U Cocaine Metab Screen NEGATIVE (NEGATIVE) 03/31/18 21: U Cannabinoids Screen NEGATIVE (NEGATIVE) 03/31/18 21:33 Ethyl Alcohol < 10 mg/dL (0-10) 03/31/18 21:05 RPR NONREACTIVE (NONREACTIVE) 03/31/18 21:05 - Physical Exam Vitals and I&O: Vital Signs Temp 97.9 F 04/05/18 20:29 Pulse 60 04/05/18 20:29 Resp 19 04/05/18 20:29 BP 156/70 04/05/18 20:29 Pulse Ox 97 04/05/18 20:29 Intake & Output 04/05/18 04/05/18 04/06/18 06:59 18:59 06:59 Intake Total 180 800 60 Balance 180 800 60 Weight (lbs) 113.398 kg Intake: Oral 180 800 60 Other: # Voids 3 3 2 # Bowel Movements 0 1 0 Weight Source Bedscale Active Medications: Current Medications Acetaminophen (Tylenol) 650 mg PO Q4HR PRN PRN Reason: Mild Pain / Temp above 100 Stop: 05/30/18 22:51 Al Hydrox/Mg Hydrox/Simethicone (Maalox) 30 ml PO Q4HR PRN PRN Reason: GI DISTRESS Stop: 05/30/18 22:51 Amlodipine Besylate (Norvasc) 10 mg PO DAILY [facility] Stop: 05/31/18 08:59 Last Admin: 04/05/18 08:23 Dose: 10 mg Baclofen (Lioresal) 5 mg PO DAILY [facility]ETH Stop: 05/31/18 08:59 Last Admin: 04/05/18 08:20 Dose: 5 mg Docusate Sodium (Colace) 100 mg PO BID BETH Stop: 05/31/18 08:59 Last Admin: 04/05/18 17:03 Dose: 100 mg Hydralazine HCl (Apresoline) 10 mg PO Q8H [facility] Stop: 05/30/18 23:14 Last Admin: 04/05/18 15:14 Dose: Not Given Lorazepam (Ativan) 0.5 mg PO Q4HR PRN; Protocol PRN Reason: Anxiety Stop: 04/30/18 22:51 Last Admin: 04/05/18 06:16 Dose: 0.5 mg Losartan Potassium (Cozaar) 100 mg PO DAILY [facility] Stop: 05/31/18 08:59 Last Admin: 04/05/18 08:21 Dose: 100 mg Magnesium Hydroxide (Milk Of Magnesia) 30 ml PO HS PRN PRN Reason: Constipation Multivitamins/Vitamin C (Theragran) 1 tab PO DAILY [facility] Stop: 05/31/18 08:59 Last Admin: 04/05/18 08:48 Dose: 1 tab Quetiapine Fumarate (Seroquel) 50 mg PO HS BETH; Protocol Stop: 05/31/18 20:59 Last Admin: 04/05/18 20:26 Dose: 50 mg Trazodone HCl (Desyrel) 50 mg PO HS BETH; Protocol Stop: 05/31/18 20:59 Last Admin: 04/05/18 20:26 Dose: 50 mg General: weak, demented HEENT: NC/AT Neck: Supple Lungs: CTAB Cardiovascular: RRR, Normal S1, Normal S2 Abdomen: soft Extremities: clear Neurological: no change, disorganized Internal Medicine Assmt/Plan - Assessment Assessment: severe agitation unpredictable/confused dementia htn h/o leukemia - Plan Plan: as per psych will monitor labs vitals diet review meds Nutritional Asmnt/Malnutr-PDOC - Dietary Evaluation Malnutrition Findings (Please click <Entered> for more info): Nutritional Asmnt/Malnutrition Start: 04/02/18 15: 16 Text: Status: Complete Freq: Protocol: Document 04/02/18 15:17 SAMEER (Rec: 04/02/18 15:38 SAMEER [email or web address]) Nutritional Asmnt/Malnutrition Patient General Information Nutritional Screening Moderate Risk Diagnosis Psychosis Pertinent Medical Hx/Surgical Hx (per Admission notes:) Transient alteration of awareness, Altered mental status, Essential (Primary) HTN, Pure hypercholesterolemia , Anal polyp, Cerebrovascular disease (unspecified), Syncope and Collapse, Chronic Kidney Disease, BPH without lower urinary tract symptoms, Dementia, Alzheimer's Disease. Subjective Information Pt was sent here by [facility]. He was fast asleep at the time of visit. Spoke to DESTINY Chun about his intake. Pt's GIFT BASKET PACKER was nearby and confirmed that his PO intake is excellent and ~ 100%. There are no records of B.M.s, but the pt does visit the bathroom by himself, so there is no way to be certain if he is contipated. Current Diet Order/ Nutrition Support [facility] Soft Chopped (Large portion [place]) Patient / S.O Not Indicated Pertinent Medications Docusate, MultiVit C, Seroquel , Trazodone Pertinent Labs (03/31) Cl - 109 H, BUN 26 H, AST 11 L, Alb 3.7 L Nutritional Hx/Data Height 1.78 m Height (Calculated Centimeters) 177.8 Current Weight (lbs) 113.398 kg Weight (Calculated Kilograms) 113.4 Weight (Calculated Grams) 900610.1 [place] Body Weight 166 % [place] Body Weight 151 Body Mass Index (BMI) 35.9 Weight Status Obese GI Symptoms Last BM None noted Food Allergies No Cultural/Ethnic/Confucianism Belief None noted. Skin Integrity/Comment: Armando score 18 Estimated Nutritional Goals BEE in Kcals: Adj wt of IBW Calories/Kcals/Kg 25-30 Kcals Calculated 5563-6367 Protein: Adj wt of IBW Protein g/k.8-1 Protein Calculated 68-85 Fluid: ml 9090-9697 Nutritional Problem No current Nutrition Prob Problem N/A Malnutrition Alert Is there a minimum of two criteria No selected? Query Text:Check all the applicable criteria. A minimum of two criteria are recommended for diagnosis of either severe or non-severe malnutrition. Malnutrition Related to Morbid Obesity Malnutrition related to morbid obesity No Intervention/Recommendation Comments Recommend continuing diet as prescribed. Expected Outcomes/Goals Expected Outcomes/Goals - Maintain 100% PO intake - Labs return to WNL - GI function normal - Wt maintenance - Skin integrity WNL
[2018-04-06] MEDS: Multivitamin Tab PO SCH (08:34)
--- NOTE | 2018-04-06 13:54 | Internal Medicine Prog Note ---
Internal Medicine Subjective - Subjective Service Date: 04/06/18 Patient seen and examined:: chart reviewed Patient is:: awake, verbal, agitated, confused, other (pt is very irritable, agitated.) Patient Complaints of:: other (Hx of Dementia.) Per staff patient has:: no adverse event, no episodes of fall, agitated Internal Medicine Objective - Results Result Diagrams: 03/31/18 21:05 03/31/18 21: Recent Labs: Laboratory Last Values WBC 3.6 Th/cmm (4.8-10.8) L 03/31/18 21:05 RBC 4.33 Mil/cmm (3.80-5.80) 03/31/18 21:05 Hgb 12.2 gm/dL (12-16) 03/31/18 21:05 Hct 38.4 % (41.0-60) L 03/31/18 21: MCV 88.7 fl (80-99) 03/31/18 21:05 MCH 28.1 pg (27.0-31.0) 03/31/18 21:05 MCHC Differential 31.7 pg (28.0-36.0) 03/31/18 21:05 RDW 12.4 % (11.5-20.0) 03/31/18 21: Plt Count 182 Th/cmm (150-400) 03/31/18 21:05 MPV 7.6 fl 03/31/18 21:05 Neutrophils % 50.0 % (40.0-80.0) 03/31/18 21:05 Lymphocytes % 30.6 % (20.0-50.0) 03/31/18 21:05 Monocytes % 14.8 % (2.0-10.0) H 03/31/18 21:05 Eosinophils % 2.5 % (0.0-5.0) 03/31/18 21: Basophils % 2.1 % (0.0-2.0) H 03/31/18 21:05 Sodium 142 mEq/L (136-145) 03/31/18 21:05 Potassium 3.9 mEq/L (3.5-5.1) 03/31/18 21:05 Chloride 109 mEq/L (98-107) H 03/31/18 21:05 Carbon Dioxide 27.1 mEq/L (21.0-31.0) 03/31/18 21:05 Anion Gap 9.8 (7.0-16.0) 03/31/18 21:05 BUN 26 mg/dL (7-25) H 03/31/18 21:05 Creatinine 1.3 mg/dL (0.7-1.3) 03/31/18 21:05 Est GFR ( Amer) TNP 03/31/18 21:05 Est GFR (Non-Af Amer) TNP 03/31/18 21:05 BUN/Creatinine Ratio 20.0 03/31/18 21:05 Glucose 98 mg/dL (70-105) 03/31/18 21:05 POC Glucose 169 MG/DL (70 - 105) H 04/02/18 20:51 Whole Bld Lactic Acid 0.85 mmol/L (0.60-1.99) 03/31/18 21:05 Calcium 9.2 mg/dL (8.6-10.3) 03/31/18 21:05 Total Bilirubin 0.3 mg/dL (0.3-1.0) 03/31/18 21:05 AST 11 U/L (13-39) L 03/31/18 21:05 ALT 7 U/L (7-52) 03/31/18 21:05 Alkaline Phosphatase 56 U/L (34-104) 03/31/18 21:05 Total Protein 6.4 gm/dL (6.0-8.3) 03/31/18 21:05 Albumin 3.7 gm/dL (4.2-5.5) L 03/31/18 21:05 Globulin 2.7 gm/dL 03/31/18 21:05 Albumin/Globulin Ratio 1.4 (1.0-1.8) 03/31/18 21:05 Triglycerides 86 mg/dL (<150) 03/31/18 21:05 Cholesterol 153 mg/dL (<200) 03/31/18 21:05 LDL Cholesterol Direct 108 mg/dL (75-193) 03/31/18 21:05 HDL Cholesterol 38 mg/dL (23-92) 03/31/18 21:05 TSH 1.95 uIU/ml (0.34-5.60) 03/31/18 21:05 Urine Source CLEAN C 03/31/18 21:33 Urine Color YELLOW 03/31/18 21:33 Urine Clarity CLEAR (CLEAR) 03/31/18: Urine pH 7.0 (4.6 - 8.0) 03/31/18 21: Ur Specific [place] 1.020 (1.005-1.030) 03/31/18 21:33 Urine Protein NEGATIVE mg/dL (NEGATIVE) 03/31/18 21: Urine Glucose (UA) NEGATIVE mg/dL (NEGATIVE) 03/31/18: Urine Ketones NEGATIVE mg/dL (NEGATIVE) 03/31/18 21: Urine Blood NEGATIVE (NEGATIVE) 03/31/18 21: Urine Nitrate NEGATIVE (NEGATIVE) 03/31/18: Urine Bilirubin NEGATIVE (NEGATIVE) 03/31/18: Urine Urobilinogen 1.0 E.U./dL (0.2 - 1.0) 03/31/18 21:33 Ur Leukocyte Esterase NEGATIVE (NEGATIVE) 03/31/18: Urine RBC NONE SEEN /hpf (0-5) 03/31/18:33 Urine WBC 2-5 /hpf (0-5) 03/31/18 21:33 Ur Epithelial Cells NONE SEEN /lpf (FEW) 03/31/18: Urine Bacteria FEW /hpf (NONE SEEN) 03/31/18: Salicylates < 25.0 mg/L (30.0-100.0) L 03/31/18 21:05 Urine Opiates Screen NEGATIVE (NEGATIVE) 03/31/18: Urine Methadone Screen NEGATIVE (NEGATIVE) 03/31/18: Acetaminophen < 10.0 ug/mL (10.0-30.0) L 03/31/18 21:05 Ur Barbiturates Screen NEGATIVE (NEGATIVE) 03/31/18 21:33 Ur Tricyclics Screen NEGATIVE (NEGATIVE) 03/31/18:33 Ur Phencyclidine Scrn NEGATIVE (NEGATIVE) 03/31/18: Amphetamines Screen NEGATIVE (NEGATIVE) 03/31/18 21:33 U Methamphetamines Scrn NEGATIVE (NEGATIVE) 03/31/18 21: U Benzodiazepines Scrn NEGATIVE (NEGATIVE) 03/31/18: U Cocaine Metab Screen NEGATIVE (NEGATIVE) 03/31/18: U Cannabinoids Screen NEGATIVE (NEGATIVE) 03/31/18 21:33 Ethyl Alcohol < 10 mg/dL (0-10) 03/31/18 21:05 RPR NONREACTIVE (NONREACTIVE) 03/31/18 21:05 - Physical Exam Vitals and I&O: Vital Signs Temp 0 F 04/06/18 06:19 Pulse 49 04/06/18 08:34 Resp 19 04/05/18 20:29 BP 139/48 04/06/18 08:34 Pulse Ox 97 04/05/18 20:29 Intake & Output 04/05/18 04/06/18 04/06/18 18:59 06:59 18:59 Intake Total 800 60 Balance 800 60 Weight (lbs) 113.398 kg Intake: Oral 800 60 Other: # Voids 3 3 # Bowel Movements 1 0 Weight Source Bedscale Active Medications: Current Medications Acetaminophen (Tylenol) 650 mg PO Q4HR PRN PRN Reason: Mild Pain / Temp above 100 Stop: 05/30/18 22:51 Al Hydrox/Mg Hydrox/Simethicone (Maalox) 30 ml PO Q4HR PRN PRN Reason: GI DISTRESS Stop: 05/30/18 22:51 Amlodipine Besylate (Norvasc) 10 mg PO DAILY [facility] Stop: 05/31/18 08:59 Last Admin: 04/06/18 08:34 Dose: 10 mg Baclofen (Lioresal) 5 mg PO DAILY [facility] Stop: 05/31/18 08:59 Last Admin: 04/06/18 08:34 Dose: 5 mg Docusate Sodium (Colace) 100 mg PO BID BETH Stop: 05/31/18 08:59 Last Admin: 04/06/18 08:34 Dose: 100 mg Hydralazine HCl (Apresoline) 10 mg PO Q8H BETH Stop: 05/30/18 23:14 Last Admin: 04/06/18 06:31 Dose: 10 mg Lorazepam (Ativan) 0.5 mg PO Q4HR PRN; Protocol PRN Reason: Anxiety Stop: 04/30/18 22:51 Last Admin: 04/05/18 06:16 Dose: 0.5 mg Losartan Potassium (Cozaar) 100 mg PO DAILY [facility] Stop: 05/31/18 08:59 Last Admin: 04/06/18 08:33 Dose: 100 mg Magnesium Hydroxide (Milk Of Magnesia) 30 ml PO HS PRN PRN Reason: Constipation Multivitamins/Vitamin C (Theragran) 1 tab PO DAILY [facility] Stop: 05/31/18 08:59 Last Admin: 04/06/18 08:34 Dose: 1 tab Quetiapine Fumarate (Seroquel) 50 mg PO HS BETH; Protocol Stop: 05/31/18 20:59 Last Admin: 04/05/18 20:26 Dose: 50 mg Trazodone HCl (Desyrel) 50 mg PO HS BETH; Protocol Stop: 05/31/18 20:59 Last Admin: 04/05/18 20:26 Dose: 50 mg General: weak, demented HEENT: NC/AT Neck: Supple Lungs: CTAB Cardiovascular: RRR, Normal S1, Normal S2 Abdomen: soft Extremities: clear Neurological: no change, disorganized Internal Medicine Assmt/Plan - Assessment Assessment: severe agitation unpredictable/confused dementia htn h/o leukemia - Plan Plan: as per psych will monitor labs Monitor vitals diet review meds Nutritional Asmnt/Malnutr-PDOC - Dietary Evaluation Malnutrition Findings (Please click <Entered> for more info): Nutritional Asmnt/Malnutrition Start: 04/02/18 15: 16 Text: Status: Complete Freq: Protocol: Document 04/02/18 15:17 SAMEER (Rec: 04/02/18 15:38 [email or web address]) Nutritional Asmnt/Malnutrition Patient General Information Nutritional Screening Moderate Risk Diagnosis Psychosis Pertinent Medical Hx/Surgical Hx (per Admission notes:) Transient alteration of awareness, Altered mental status, Essential (Primary) HTN, Pure hypercholesterolemia , Anal polyp, Cerebrovascular disease (unspecified), Syncope and Collapse, Chronic Kidney Disease, BPH without lower urinary tract symptoms, Dementia, Alzheimer's Disease. Subjective Information Pt was sent here by [facility]. He was fast asleep at the time of visit. Spoke to DESTINY Chun about his intake. Pt's SKIN PASS OPERATOR was nearby and confirmed that his PO intake is excellent and ~ 100%. There are no records of B.M.s, but the pt does visit the bathroom by himself, so there is no way to be certain if he is contipated. Current Diet Order/ Nutrition Support [facility] Soft Chopped (Large portion [place]) Patient / S.O Not Indicated Pertinent Medications Docusate, MultiVit C, Seroquel , Trazodone Pertinent Labs (03/31) Cl - 109 H, BUN 26 H, AST 11 L, Alb 3.7 L Nutritional Hx/Data Height 1.78 m Height (Calculated Centimeters) 177.8 Current Weight (lbs) 113.398 kg Weight (Calculated Kilograms) 113.4 Weight (Calculated Grams) 959874.1 [place] Body Weight 166 % [place] Body Weight 151 Body Mass Index (BMI) 35.9 Weight Status Obese GI Symptoms Last BM None noted Food Allergies No Cultural/Ethnic/Mandaeism Belief None noted. Skin Integrity/Comment: Armando score 18 Estimated Nutritional Goals BEE in Kcals: Adj wt of IBW Calories/Kcals/Kg 25-30 Kcals Calculated 8188-1993 Protein: Adj wt of IBW Protein g/k.8-1 Protein Calculated 68-85 Fluid: ml [id number] Nutritional Problem No current Nutrition Prob Problem N/A Malnutrition Alert Is there a minimum of two criteria No selected? Query Text:Check all the applicable criteria. A minimum of two criteria are recommended for diagnosis of either severe or non-severe malnutrition. Malnutrition Related to Morbid Obesity Malnutrition related to morbid obesity No Intervention/Recommendation Comments Recommend continuing diet as prescribed. Expected Outcomes/Goals Expected Outcomes/Goals - Maintain 100% PO intake - Labs return to WNL - GI function normal - Wt maintenance - Skin integrity WNL
[2018-04-07] MEDS: Multivitamin Tab PO SCH (09:56)
--- NOTE | 2018-04-07 18:00 | Internal Medicine Prog Note ---
Internal Medicine Subjective - Subjective Service Date: 04/07/18 Patient is:: awake, verbal, agitated, confused, other (pt is very irritable, agitated.) Patient Complaints of:: other (Hx of Dementia.) Per staff patient has:: no adverse event, no episodes of fall, agitated Internal Medicine Objective - Results Result Diagrams: 03/31/18 21:05 03/31/18 21: Recent Labs: Laboratory Last Values WBC 3.6 Th/cmm (4.8-10.8) L 03/31/18 21:05 RBC 4.33 Mil/cmm (3.80-5.80) 03/31/18 21: Hgb 12.2 gm/dL (12-16) 03/31/18 21: Hct 38.4 % (41.0-60) L 03/31/18 21: MCV 88.7 fl (80-99) 03/31/18 21: MCH 28.1 pg (27.0-31.0) 03/31/18 21: MCHC Differential 31.7 pg (28.0-36.0) 03/31/18 21:05 RDW 12.4 % (11.5-20.0) 03/31/18 21: Plt Count 182 Th/cmm (150-400) 03/31/18 21:05 MPV 7.6 fl 03/31/18 21:05 Neutrophils % 50.0 % (40.0-80.0) 03/31/18 21: Lymphocytes % 30.6 % (20.0-50.0) 03/31/18 21: Monocytes % 14.8 % (2.0-10.0) H 03/31/18 21:05 Eosinophils % 2.5 % (0.0-5.0) 03/31/18 21: Basophils % 2.1 % (0.0-2.0) H 03/31/18 21:05 Sodium 142 mEq/L (136-145) 03/31/18 21:05 Potassium 3.9 mEq/L (3.5-5.1) 03/31/18 21: Chloride 109 mEq/L (98-107) H 03/31/18 21:05 Carbon Dioxide 27.1 mEq/L (21.0-31.0) 03/31/18 21:05 Anion Gap 9.8 (7.0-16.0) 03/31/18 21:05 BUN 26 mg/dL (7-25) H 03/31/18 21:05 Creatinine 1.3 mg/dL (0.7-1.3) 03/31/18 21:05 Est GFR ( Amer) TNP 03/31/18 21:05 Est GFR (Non-Af Amer) TNP 03/31/18 21:05 BUN/Creatinine Ratio 20.0 03/31/18 21:05 Glucose 98 mg/dL (70-105) 03/31/18 21:05 POC Glucose 169 MG/DL (70 - 105) H 04/02/18 20:51 Whole Bld Lactic Acid 0.85 mmol/L (0.60-1.99) 03/31/18 21:05 Calcium 9.2 mg/dL (8.6-10.3) 03/31/18 21:05 Total Bilirubin 0.3 mg/dL (0.3-1.0) 03/31/18 21:05 AST 11 U/L (13-39) L 03/31/18 21:05 ALT 7 U/L (7-52) 03/31/18 21:05 Alkaline Phosphatase 56 U/L (34-104) 03/31/18 21:05 Total Protein 6.4 gm/dL (6.0-8.3) 03/31/18 21:05 Albumin 3.7 gm/dL (4.2-5.5) L 03/31/18 21:05 Globulin 2.7 gm/dL 03/31/18 21:05 Albumin/Globulin Ratio 1.4 (1.0-1.8) 03/31/18 21:05 Triglycerides 86 mg/dL (<150) 03/31/18 21:05 Cholesterol 153 mg/dL (<200) 03/31/18 21:05 LDL Cholesterol Direct 108 mg/dL (75-193) 03/31/18 21:05 HDL Cholesterol 38 mg/dL (23-92) 03/31/18 21:05 TSH 1.95 uIU/ml (0.34-5.60) 03/31/18 21:05 Urine Source CLEAN C 03/31/18 21:33 Urine Color YELLOW 03/31/18 21: Urine Clarity CLEAR (CLEAR) 03/31/18: Urine pH 7.0 (4.6 - 8.0) 03/31/18 21: Ur Specific [place] 1.020 (1.005-1.030) 03/31/18 21:33 Urine Protein NEGATIVE mg/dL (NEGATIVE) 03/31/18: Urine Glucose (UA) NEGATIVE mg/dL (NEGATIVE) 03/31/18: Urine Ketones NEGATIVE mg/dL (NEGATIVE) 03/31/18 21: Urine Blood NEGATIVE (NEGATIVE) 03/31/18 21: Urine Nitrate NEGATIVE (NEGATIVE) 03/31/18: Urine Bilirubin NEGATIVE (NEGATIVE) 03/31/18: Urine Urobilinogen 1.0 E.U./dL (0.2 - 1.0) 03/31/18: Ur Leukocyte Esterase NEGATIVE (NEGATIVE) 03/31/18: Urine RBC NONE SEEN /hpf (0-5) 03/31/18: Urine WBC 2-5 /hpf (0-5) 03/31/18 21:33 Ur Epithelial Cells NONE SEEN /lpf (FEW) 03/31/18 21:33 Urine Bacteria FEW /hpf (NONE SEEN) 03/31/18: Salicylates < 25.0 mg/L (30.0-100.0) L 03/31/18 21:05 Urine Opiates Screen NEGATIVE (NEGATIVE) 03/31/18: Urine Methadone Screen NEGATIVE (NEGATIVE) 03/31/18: Acetaminophen < 10.0 ug/mL (10.0-30.0) L 03/31/18 21: Ur Barbiturates Screen NEGATIVE (NEGATIVE) 03/31/18 21:33 Ur Tricyclics Screen NEGATIVE (NEGATIVE) 03/31/18: Ur Phencyclidine Scrn NEGATIVE (NEGATIVE) 03/31/18: Amphetamines Screen NEGATIVE (NEGATIVE) 03/31/18 21: U Methamphetamines Scrn NEGATIVE (NEGATIVE) 03/31/18: U Benzodiazepines Scrn NEGATIVE (NEGATIVE) 03/31/18: U Cocaine Metab Screen NEGATIVE (NEGATIVE) 03/31/18: U Cannabinoids Screen NEGATIVE (NEGATIVE) 03/31/18 21:33 Ethyl Alcohol < 10 mg/dL (0-10) 03/31/18 21:05 RPR NONREACTIVE (NONREACTIVE) 03/31/18 21:05 - Physical Exam Vitals and I&O: Vital Signs Temp 98.6 F 04/06/18 14:00 Pulse 72 04/07/18 09:59 Resp 18 04/06/18 14:00 BP 138/82 04/07/18 09:59 Pulse Ox 100 04/06/18 14:00 Intake & Output 04/06/18 04/07/18 04/07/18 18:59 06:59 18:59 Intake Total 1400 240 Balance 1400 240 Intake: Oral 1400 240 Other: # Voids 4 2 # Bowel Movements 0 Active Medications: Current Medications Acetaminophen (Tylenol) 650 mg PO Q4HR PRN PRN Reason: Mild Pain / Temp above 100 Stop: 05/30/18 22:51 Al Hydrox/Mg Hydrox/Simethicone (Maalox) 30 ml PO Q4HR PRN PRN Reason: GI DISTRESS Stop: 05/30/18 22:51 Amlodipine Besylate (Norvasc) 10 mg PO DAILY [facility] Stop: 05/31/18 08:59 Last Admin: 04/07/18 09:58 Dose: 10 mg Baclofen (Lioresal) 5 mg PO DAILY BETH Stop: 05/31/18 08:59 Last Admin: 04/07/18 09:56 Dose: 5 mg Docusate Sodium (Colace) 100 mg PO BID BETH Stop: 05/31/18 08:59 Last Admin: 04/07/18 17:03 Dose: Not Given Hydralazine HCl (Apresoline) 10 mg PO Q8H BETH Stop: 05/30/18 23:14 Last Admin: 04/07/18 15:06 Dose: Not Given Lorazepam (Ativan) 0.5 mg PO Q4HR PRN; Protocol PRN Reason: Anxiety Stop: 04/30/18 22:51 Last Admin: 04/05/18 06:16 Dose: 0.5 mg Losartan Potassium (Cozaar) 100 mg PO DAILY [facility] Stop: 05/31/18 08:59 Last Admin: 04/07/18 09:59 Dose: 100 mg Magnesium Hydroxide (Milk Of Magnesia) 30 ml PO HS PRN PRN Reason: Constipation Multivitamins/Vitamin C (Theragran) 1 tab PO DAILY BETH Stop: 05/31/18 08:59 Last Admin: 04/07/18 09:56 Dose: 1 tab Quetiapine Fumarate (Seroquel) 50 mg PO HS BETH; Protocol Stop: 05/31/18 20:59 Last Admin: 04/06/18 20:52 Dose: 50 mg Trazodone HCl (Desyrel) 50 mg PO HS BETH; Protocol Stop: 05/31/18 20:59 Last Admin: 04/06/18 20:52 Dose: 50 mg General: weak, demented HEENT: NC/AT Neck: Supple Lungs: CTAB Cardiovascular: RRR, Normal S1, Normal S2 Abdomen: soft Extremities: clear Neurological: no change, disorganized Internal Medicine Assmt/Plan - Assessment Assessment: severe agitation unpredictable/confused dementia htn h/o leukemia - Plan Plan: continue current plan of care Nutritional Asmnt/Malnutr-PDOC - Dietary Evaluation Malnutrition Findings (Please click <Entered> for more info): Nutritional Asmnt/Malnutrition Start: 04/02/18 15: 16 Text: Status: Complete Freq: Protocol: Document 04/02/18 15:17 RHAQUE (Rec: 04/02/18 15:38 [email or web address]) Nutritional Asmnt/Malnutrition Patient General Information Nutritional Screening Moderate Risk Diagnosis Psychosis Pertinent Medical Hx/Surgical Hx (per Admission notes:) Transient alteration of awareness, Altered mental status, Essential (Primary) HTN, Pure hypercholesterolemia , Anal polyp, Cerebrovascular disease (unspecified), Syncope and Collapse, Chronic Kidney Disease, BPH without lower urinary tract symptoms, Dementia, Alzheimer's Disease. Subjective Information Pt was sent here by [facility]. He was fast asleep at the time of visit. Spoke to DESTINY Chun about his intake. Pt's MAJOR LEAGUE BASEBALL UMPIRE was nearby and confirmed that his PO intake is excellent and ~ 100%. There are no records of B.M.s, but the pt does visit the bathroom by himself, so there is no way to be certain if he is contipated. Current Diet Order/ Nutrition Support [facility] Soft Chopped (Large portion [place]) Patient / S.O Not Indicated Pertinent Medications Docusate, MultiVit C, Seroquel , Trazodone Pertinent Labs (03/31) Cl - 109 H, BUN 26 H, AST 11 L, Alb 3.7 L Nutritional Hx/Data Height 5 ft 10 in Height (Calculated Centimeters) 177.8 Current Weight (lbs) 250 lb Weight (Calculated Kilograms) 113.4 Weight (Calculated Grams) 763166.1 [place] Body Weight 166 % [place] Body Weight 151 Body Mass Index (BMI) 35.9 Weight Status Obese GI Symptoms Last BM None noted Food Allergies No Cultural/Ethnic/Buddhist Belief None noted. Skin Integrity/Comment: Armando score 18 Estimated Nutritional Goals BEE in Kcals: Adj wt of IBW Calories/Kcals/Kg 25-30 Kcals Calculated 6787-4073 Protein: Adj wt of IBW Protein g/k.8-1 Protein Calculated 68-85 Fluid: ml [id number] Nutritional Problem No current Nutrition Prob Problem N/A Malnutrition Alert Is there a minimum of two criteria No selected? Query Text:Check all the applicable criteria. A minimum of two criteria are recommended for diagnosis of either severe or non-severe malnutrition. Malnutrition Related to Morbid Obesity Malnutrition related to morbid obesity No Intervention/Recommendation Comments Recommend continuing diet as prescribed. Expected Outcomes/Goals Expected Outcomes/Goals - Maintain 100% PO intake - Labs return to WNL - GI function normal - Wt maintenance - Skin integrity WNL
[2018-04-08] MEDS: Multivitamin Tab PO SCH (09:46)
--- NOTE | 2018-04-08 10:39 | Internal Medicine Prog Note ---
Internal Medicine Subjective - Subjective Service Date: 04/08/18 Patient seen and examined:: chart reviewed Patient is:: awake (Patient is irritated and easily agitated.), verbal, agitated , confused, other (pt is very irritable,agitated.) Patient Complaints of:: other (Hx of Dementia.) Per staff patient has:: no adverse event, no episodes of fall, agitated Internal Medicine Objective - Results Result Diagrams: 03/31/18 21:05 03/31/18 21: Recent Labs: Laboratory Last Values WBC 3.6 Th/cmm (4.8-10.8) L 03/31/18 21:05 RBC 4.33 Mil/cmm (3.80-5.80) 03/31/18 21:05 Hgb 12.2 gm/dL (12-16) 03/31/18 21:05 Hct 38.4 % (41.0-60) L 03/31/18 21: MCV 88.7 fl (80-99) 03/31/18 21:05 MCH 28.1 pg (27.0-31.0) 03/31/18 21:05 MCHC Differential 31.7 pg (28.0-36.0) 03/31/18 21: RDW 12.4 % (11.5-20.0) 03/31/18 21:05 Plt Count 182 Th/cmm (150-400) 03/31/18 21:05 MPV 7.6 fl 03/31/18 21:05 Neutrophils % 50.0 % (40.0-80.0) 03/31/18 21:05 Lymphocytes % 30.6 % (20.0-50.0) 03/31/18 21:05 Monocytes % 14.8 % (2.0-10.0) H 03/31/18 21:05 Eosinophils % 2.5 % (0.0-5.0) 03/31/18 21:05 Basophils % 2.1 % (0.0-2.0) H 03/31/18 21:05 Sodium 142 mEq/L (136-145) 03/31/18 21:05 Potassium 3.9 mEq/L (3.5-5.1) 03/31/18 21:05 Chloride 109 mEq/L (98-107) H 03/31/18 21:05 Carbon Dioxide 27.1 mEq/L (21.0-31.0) 03/31/18 21:05 Anion Gap 9.8 (7.0-16.0) 03/31/18 21:05 BUN 26 mg/dL (7-25) H 03/31/18 21:05 Creatinine 1.3 mg/dL (0.7-1.3) 03/31/18 21:05 Est GFR ( Amer) TNP 03/31/18 21:05 Est GFR (Non-Af Amer) TNP 03/31/18 21:05 BUN/Creatinine Ratio 20.0 03/31/18 21:05 Glucose 98 mg/dL (70-105) 03/31/18 21:05 POC Glucose 169 MG/DL (70 - 105) H 04/02/18 20:51 Whole Bld Lactic Acid 0.85 mmol/L (0.60-1.99) 03/31/18 21:05 Calcium 9.2 mg/dL (8.6-10.3) 03/31/18 21:05 Total Bilirubin 0.3 mg/dL (0.3-1.0) 03/31/18 21:05 AST 11 U/L (13-39) L 03/31/18 21:05 ALT 7 U/L (7-52) 03/31/18 21:05 Alkaline Phosphatase 56 U/L (34-104) 03/31/18 21:05 Total Protein 6.4 gm/dL (6.0-8.3) 03/31/18 21:05 Albumin 3.7 gm/dL (4.2-5.5) L 03/31/18 21:05 Globulin 2.7 gm/dL 03/31/18 21:05 Albumin/Globulin Ratio 1.4 (1.0-1.8) 03/31/18 21:05 Triglycerides 86 mg/dL (<150) 03/31/18 21:05 Cholesterol 153 mg/dL (<200) 03/31/18 21:05 LDL Cholesterol Direct 108 mg/dL (75-193) 03/31/18 21:05 HDL Cholesterol 38 mg/dL (23-92) 03/31/18 21:05 TSH 1.95 uIU/ml (0.34-5.60) 03/31/18 21:05 Urine Source CLEAN C 03/31/18 21:33 Urine Color YELLOW 03/31/18 21:33 Urine Clarity CLEAR (CLEAR) 03/31/18 21: Urine pH 7.0 (4.6 - 8.0) 03/31/18 21:33 Ur Specific [place] 1.020 (1.005-1.030) 03/31/18 21:33 Urine Protein NEGATIVE mg/dL (NEGATIVE) 03/31/18 21: Urine Glucose (UA) NEGATIVE mg/dL (NEGATIVE) 03/31/18 21:33 Urine Ketones NEGATIVE mg/dL (NEGATIVE) 03/31/18 21: Urine Blood NEGATIVE (NEGATIVE) 03/31/18: Urine Nitrate NEGATIVE (NEGATIVE) 03/31/18: Urine Bilirubin NEGATIVE (NEGATIVE) 03/31/18: Urine Urobilinogen 1.0 E.U./dL (0.2 - 1.0) 03/31/18 21:33 Ur Leukocyte Esterase NEGATIVE (NEGATIVE) 03/31/18:33 Urine RBC NONE SEEN /hpf (0-5) 03/31/18 21:33 Urine WBC 2-5 /hpf (0-5) 03/31/18 21:33 Ur Epithelial Cells NONE SEEN /lpf (FEW) 03/31/18 21:33 Urine Bacteria FEW /hpf (NONE SEEN) 03/31/18 21:33 Salicylates < 25.0 mg/L (30.0-100.0) L 03/31/18 21:05 Urine Opiates Screen NEGATIVE (NEGATIVE) 03/31/18:33 Urine Methadone Screen NEGATIVE (NEGATIVE) 03/31/18: Acetaminophen < 10.0 ug/mL (10.0-30.0) L 03/31/18 21: Ur Barbiturates Screen NEGATIVE (NEGATIVE) 03/31/18 21:33 Ur Tricyclics Screen NEGATIVE (NEGATIVE) 03/31/18 21:33 Ur Phencyclidine Scrn NEGATIVE (NEGATIVE) 03/31/18 21:33 Amphetamines Screen NEGATIVE (NEGATIVE) 03/31/18 21:33 U Methamphetamines Scrn NEGATIVE (NEGATIVE) 03/31/18 21:33 U Benzodiazepines Scrn NEGATIVE (NEGATIVE) 03/31/18 21:33 U Cocaine Metab Screen NEGATIVE (NEGATIVE) 03/31/18 21:33 U Cannabinoids Screen NEGATIVE (NEGATIVE) 03/31/18 21:33 Ethyl Alcohol < 10 mg/dL (0-10) 03/31/18 21:05 RPR NONREACTIVE (NONREACTIVE) 03/31/18 21:05 - Physical Exam Vitals and I&O: Vital Signs Temp 97.4 F 04/08/18 06:52 Pulse 62 04/08/18 09:43 Resp 20 04/08/18 06:52 BP 185/71 04/08/18 09:43 Pulse Ox 97 04/08/18 06:52 Intake & Output 04/07/18 04/08/18 04/08/18 18:59 06:59 18:59 Intake Total 700 120 Balance 700 120 Intake: Oral 700 120 Other: # Voids 3 3 # Bowel Movements 0 Active Medications: Current Medications Acetaminophen (Tylenol) 650 mg PO Q4HR PRN PRN Reason: Mild Pain / Temp above 100 Stop: 05/30/18 22:51 Al Hydrox/Mg Hydrox/Simethicone (Maalox) 30 ml PO Q4HR PRN PRN Reason: GI DISTRESS Stop: 05/30/18 22:51 Amlodipine Besylate (Norvasc) 10 mg PO DAILY BETH Stop: 05/31/18 08:59 Last Admin: 04/08/18 09:43 Dose: 10 mg Baclofen (Lioresal) 5 mg PO DAILY BETH Stop: 05/31/18 08:59 Last Admin: 04/08/18 09:45 Dose: 5 mg Docusate Sodium (Colace) 100 mg PO BID BETH Stop: 05/31/18 08:59 Last Admin: 04/08/18 09:58 Dose: Not Given Hydralazine HCl (Apresoline) 10 mg PO Q8H BETH Stop: 05/30/18 23:14 Last Admin: 04/08/18 06:40 Dose: 10 mg Lorazepam (Ativan) 0.5 mg PO Q4HR PRN; Protocol PRN Reason: Anxiety Stop: 04/30/18 22:51 Last Admin: 04/05/18 06:16 Dose: 0.5 mg Losartan Potassium (Cozaar) 100 mg PO DAILY BETH Stop: 05/31/18 08:59 Last Admin: 04/08/18 09:43 Dose: 100 mg Magnesium Hydroxide (Milk Of Magnesia) 30 ml PO HS PRN PRN Reason: Constipation Multivitamins/Vitamin C (Theragran) 1 tab PO DAILY BETH Stop: 05/31/18 08:59 Last Admin: 04/08/18 09:46 Dose: Not Given Quetiapine Fumarate (Seroquel) 50 mg PO HS BETH; Protocol Stop: 05/31/18 20:59 Last Admin: 04/07/18 20:54 Dose: 50 mg Quetiapine Fumarate (Seroquel) 12.5 mg PO DAILY BETH; Protocol Stop: 06/07/18 08:59 Last Admin: 04/08/18 09:46 Dose: 12.5 mg Trazodone HCl (Desyrel) 50 mg PO HS BETH; Protocol Stop: 05/31/18 20:59 Last Admin: 04/07/18 20:54 Dose: 50 mg General: weak, demented HEENT: NC/AT Neck: Supple Lungs: CTAB Cardiovascular: RRR, Normal S1, Normal S2 Abdomen: soft Extremities: clear Neurological: no change, disorganized Internal Medicine Assmt/Plan - Assessment Assessment: severe agitation/Irritable unpredictable/confused dementia htn h/o leukemia - Plan Plan: as per psych will monitor labs Monitor vitals diet review meds continue present care management Nutritional Asmnt/Malnutr-PDOC - Dietary Evaluation Malnutrition Findings (Please click <Entered> for more info): Nutritional Asmnt/Malnutrition Start: 04/02/18 15: 16 Text: Status: Complete Freq: Protocol: Document 04/02/18 15:17 SAMEER (Rec: 04/02/18 15:38 [email or web address]) Nutritional Asmnt/Malnutrition Patient General Information Nutritional Screening Moderate Risk Diagnosis Psychosis Pertinent Medical Hx/Surgical Hx (per Admission notes:) Transient alteration of awareness, Altered mental status, Essential (Primary) HTN, Pure hypercholesterolemia , Anal polyp, Cerebrovascular disease (unspecified), Syncope and Collapse, Chronic Kidney Disease, BPH without lower urinary tract symptoms, Dementia, Alzheimer's Disease. Subjective Information Pt was sent here by [facility]. He was fast asleep at the time of visit. Spoke to DESTINY Chun about his intake. Pt's SECRETARY SPECIALIST was nearby and confirmed that his PO intake is excellent and ~ 100%. There are no records of B.M.s, but the pt does visit the bathroom by himself, so there is no way to be certain if he is contipated. [facility] Diet [facility]/ [facility]Large portion [place]) Patient / S.O Not Indicated Pertinent Medications Docusate, MultiVit C, Seroquel , Trazodone Pertinent Labs (03/31) Cl - 109 H, BUN 26 H, AST 11 L, Alb 3.7 L Nutritional Hx/Data Height 1.78 m Height (Calculated Centimeters) 177.8 Current Weight (lbs) 113.398 kg Weight (Calculated Kilograms) 113.4 Weight (Calculated Grams) 776602.1 [place] Body Weight 166 % [place] Body Weight 151 Body Mass Index (BMI) 35.9 Weight Status Obese GI Symptoms Last BM None noted Food Allergies No Cultural/Ethnic/Cheondoism Belief None noted. Skin Integrity/Comment: Armando score 18 Estimated Nutritional Goals BEE in Kcals: Adj wt of IBW Calories/Kcals/Kg 25-30 Kcals Calculated 4171-0884 Protein: Adj wt of IBW Protein g/k.8-1 Protein Calculated 68-85 Fluid: ml 2763-4570 Nutritional Problem No current Nutrition Prob Problem N/A Malnutrition Alert Is there a minimum of two criteria No selected? Query Text:Check all the applicable criteria. A minimum of two criteria are recommended for diagnosis of either severe or non-severe malnutrition. Malnutrition Related to Morbid Obesity Malnutrition related to morbid obesity No Intervention/Recommendation Comments Recommend continuing diet as prescribed. Expected Outcomes/Goals Expected Outcomes/Goals - Maintain 100% PO intake - Labs return to WNL - GI function normal - Wt maintenance - Skin integrity WNL
--- NOTE | 2018-04-08 10:49 | Internal Medicine Prog Note ---
Internal Medicine Subjective - Subjective Service Date: 04/08/18 Patient seen and examined:: chart reviewed Patient is:: awake (Patient is irritated and easily agitated.), verbal, agitated , confused, other (Remains in irritated mood.) Patient Complaints of:: other (Hx of Dementia.) Per staff patient has:: no adverse event, no episodes of fall, agitated Internal Medicine Objective - Results Result Diagrams: 03/31/18 21:05 03/31/18 21: Recent Labs: Laboratory Last Values WBC 3.6 Th/cmm (4.8-10.8) L 03/31/18 21:05 RBC 4.33 Mil/cmm (3.80-5.80) 03/31/18 21:05 Hgb 12.2 gm/dL (12-16) 03/31/18 21:05 Hct 38.4 % (41.0-60) L 03/31/18 21:05 MCV 88.7 fl (80-99) 03/31/18 21:05 MCH 28.1 pg (27.0-31.0) 03/31/18 21:05 MCHC Differential 31.7 pg (28.0-36.0) 03/31/18 21:05 RDW 12.4 % (11.5-20.0) 03/31/18 21:05 Plt Count 182 Th/cmm (150-400) 03/31/18 21:05 MPV 7.6 fl 03/31/18 21:05 Neutrophils % 50.0 % (40.0-80.0) 03/31/18 21:05 Lymphocytes % 30.6 % (20.0-50.0) 03/31/18 21:05 Monocytes % 14.8 % (2.0-10.0) H 03/31/18 21:05 Eosinophils % 2.5 % (0.0-5.0) 03/31/18 21:05 Basophils % 2.1 % (0.0-2.0) H 03/31/18 21:05 Sodium 142 mEq/L (136-145) 03/31/18 21:05 Potassium 3.9 mEq/L (3.5-5.1) 03/31/18 21:05 Chloride 109 mEq/L (98-107) H 03/31/18 21:05 Carbon Dioxide 27.1 mEq/L (21.0-31.0) 03/31/18 21:05 Anion Gap 9.8 (7.0-16.0) 03/31/18 21:05 BUN 26 mg/dL (7-25) H 03/31/18 21:05 Creatinine 1.3 mg/dL (0.7-1.3) 03/31/18 21:05 Est GFR ( Amer) TNP 03/31/18 21:05 Est GFR (Non-Af Amer) TNP 03/31/18 21:05 BUN/Creatinine Ratio 20.0 03/31/18 21:05 Glucose 98 mg/dL (70-105) 03/31/18 21:05 POC Glucose 169 MG/DL (70 - 105) H 04/02/18 20:51 Whole Bld Lactic Acid 0.85 mmol/L (0.60-1.99) 03/31/18 21:05 Calcium 9.2 mg/dL (8.6-10.3) 03/31/18 21:05 Total Bilirubin 0.3 mg/dL (0.3-1.0) 03/31/18 21:05 AST 11 U/L (13-39) L 03/31/18 21:05 ALT 7 U/L (7-52) 03/31/18 21:05 Alkaline Phosphatase 56 U/L (34-104) 03/31/18 21:05 Total Protein 6.4 gm/dL (6.0-8.3) 03/31/18 21:05 Albumin 3.7 gm/dL (4.2-5.5) L 03/31/18 21:05 Globulin 2.7 gm/dL 03/31/18 21:05 Albumin/Globulin Ratio 1.4 (1.0-1.8) 03/31/18 21:05 Triglycerides 86 mg/dL (<150) 03/31/18 21:05 Cholesterol 153 mg/dL (<200) 03/31/18 21:05 LDL Cholesterol Direct 108 mg/dL (75-193) 03/31/18 21:05 HDL Cholesterol 38 mg/dL (23-92) 03/31/18 21:05 TSH 1.95 uIU/ml (0.34-5.60) 03/31/18 21:05 Urine Source CLEAN C 03/31/18 21:33 Urine Color YELLOW 03/31/18 21:33 Urine Clarity CLEAR (CLEAR) 03/31/18 21:33 Urine pH 7.0 (4.6 - 8.0) 03/31/18 21:[address] [place] 1.020 (1.005-1.030) 03/31/18 21:33 Urine Protein NEGATIVE mg/dL (NEGATIVE) 03/31/18 21:33 Urine Glucose (UA) NEGATIVE mg/dL (NEGATIVE) 03/31/18 21:33 Urine Ketones NEGATIVE mg/dL (NEGATIVE) 03/31/18 21:33 Urine Blood NEGATIVE (NEGATIVE) 03/31/18 21: Urine Nitrate NEGATIVE (NEGATIVE) 03/31/18 21: Urine Bilirubin NEGATIVE (NEGATIVE) 03/31/18 21: Urine Urobilinogen 1.0 E.U./dL (0.2 - 1.0) 03/31/18 21:33 Ur Leukocyte Esterase NEGATIVE (NEGATIVE) 03/31/18 21:33 Urine RBC NONE SEEN /hpf (0-5) 03/31/18 21:33 Urine WBC 2-5 /hpf (0-5) 03/31/18 21:33 Ur Epithelial Cells NONE SEEN /lpf (FEW) 03/31/18 21:33 Urine Bacteria FEW /hpf (NONE SEEN) 03/31/18 21:33 Salicylates < 25.0 mg/L (30.0-100.0) L 03/31/18 21:05 Urine Opiates Screen NEGATIVE (NEGATIVE) 03/31/18 21:33 Urine Methadone Screen NEGATIVE (NEGATIVE) 03/31/18 21: Acetaminophen < 10.0 ug/mL (10.0-30.0) L 03/31/18 21:05 Ur Barbiturates Screen NEGATIVE (NEGATIVE) 03/31/18 21:33 Ur Tricyclics Screen NEGATIVE (NEGATIVE) 03/31/18 21:33 Ur Phencyclidine Scrn NEGATIVE (NEGATIVE) 03/31/18 21:33 Amphetamines Screen NEGATIVE (NEGATIVE) 03/31/18 21:33 U Methamphetamines Scrn NEGATIVE (NEGATIVE) 03/31/18 21:33 U Benzodiazepines Scrn NEGATIVE (NEGATIVE) 03/31/18 21:33 U Cocaine Metab Screen NEGATIVE (NEGATIVE) 03/31/18 21:33 U Cannabinoids Screen NEGATIVE (NEGATIVE) 03/31/18 21:33 Ethyl Alcohol < 10 mg/dL (0-10) 03/31/18 21:05 RPR NONREACTIVE (NONREACTIVE) 03/31/18 21:05 - Physical Exam Vitals and I&O: Vital Signs Temp 97.4 F 04/08/18 06:52 Pulse 62 04/08/18 09:43 Resp 20 04/08/18 06:52 BP 185/71 04/08/18 09:43 Pulse Ox 97 04/08/18 06:52 Intake & Output 04/07/18 04/08/18 04/08/18 18:59 06:59 18:59 Intake Total 700 120 Balance 700 120 Intake: Oral 700 120 Other: # Voids 3 3 # Bowel Movements 0 Active Medications: Current Medications Acetaminophen (Tylenol) 650 mg PO Q4HR PRN PRN Reason: Mild Pain / Temp above 100 Stop: 05/30/18 22:51 Al Hydrox/Mg Hydrox/Simethicone (Maalox) 30 ml PO Q4HR PRN PRN Reason: GI DISTRESS Stop: 05/30/18 22:51 Amlodipine Besylate (Norvasc) 10 mg PO DAILY BETH Stop: 05/31/18 08:59 Last Admin: 04/08/18 09:43 Dose: 10 mg Baclofen (Lioresal) 5 mg PO DAILY BETH Stop: 05/31/18 08:59 Last Admin: 04/08/18 09:45 Dose: 5 mg Docusate Sodium (Colace) 100 mg PO BID BETH Stop: 05/31/18 08:59 Last Admin: 04/08/18 09:58 Dose: Not Given Hydralazine HCl (Apresoline) 10 mg PO Q8H BETH Stop: 05/30/18 23:14 Last Admin: 04/08/18 06:40 Dose: 10 mg Lorazepam (Ativan) 0.5 mg PO Q4HR PRN; Protocol PRN Reason: Anxiety Stop: 04/30/18 22:51 Last Admin: 04/05/18 06:16 Dose: 0.5 mg Losartan Potassium (Cozaar) 100 mg PO DAILY BETH Stop: 05/31/18 08:59 Last Admin: 04/08/18 09:43 Dose: 100 mg Magnesium Hydroxide (Milk Of Magnesia) 30 ml PO HS PRN PRN Reason: Constipation Multivitamins/Vitamin C (Theragran) 1 tab PO DAILY BETH Stop: 05/31/18 08:59 Last Admin: 04/08/18 09:46 Dose: Not Given Quetiapine Fumarate (Seroquel) 50 mg PO HS BETH; Protocol Stop: 05/31/18 20:59 Last Admin: 04/07/18 20:54 Dose: 50 mg Quetiapine Fumarate (Seroquel) 12.5 mg PO DAILY BETH; Protocol Stop: 06/07/18 08:59 Last Admin: 04/08/18 09:46 Dose: 12.5 mg Trazodone HCl (Desyrel) 50 mg PO HS BETH; Protocol Stop: 05/31/18 20:59 Last Admin: 04/07/18 20:54 Dose: 50 mg General: weak, demented HEENT: NC/AT Neck: Supple Lungs: CTAB Cardiovascular: RRR, Normal S1, Normal S2 Abdomen: soft Extremities: clear Neurological: no change, disorganized Internal Medicine Assmt/Plan - Assessment Assessment: severe agitation/Irritable unpredictable/confused dementia htn h/o leukemia - Plan Plan: as per psych will monitor labs Monitor vitals diet review meds continue present care management Nutritional Asmnt/Malnutr-PDOC - Dietary Evaluation Malnutrition Findings (Please click <Entered> for more info): Nutritional Asmnt/Malnutrition Start: 04/02/18 15: 16 Text: Status: Complete Freq: Protocol: Document 04/02/18 15:17 SAMEER (Rec: 04/02/18 15:38 [email or web address]) Nutritional Asmnt/Malnutrition Patient General Information Nutritional Screening Moderate Risk Diagnosis Psychosis Pertinent Medical Hx/Surgical Hx (per Admission notes:) Transient alteration of awareness, Altered mental status, Essential (Primary) HTN, Pure hypercholesterolemia , Anal polyp, Cerebrovascular disease (unspecified), Syncope and Collapse, Chronic Kidney Disease, BPH without lower urinary tract symptoms, Dementia, Alzheimer's Disease. Subjective Information Pt was sent here by [facility]. He was fast asleep at the time of visit. Spoke to DESTINY Chun about his intake. Pt's S[employer] HELPER was nearby and confirmed that his PO intake is excellent and ~ 100%. There are no records of B.M.s, but the pt does visit the bathroom by himself, so there is no way to be certain if he is contipated. Current Diet Order/ Nutrition Support [facility] Soft Chopped (Large portion [place]) Patient / S.O Not Indicated Pertinent Medications Docusate, MultiVit C, Seroquel , Trazodone Pertinent Labs (03/31) Cl - 109 H, BUN 26 H, AST 11 L, Alb 3.7 L Nutritional Hx/Data Height 1.78 m Height (Calculated Centimeters) 177.8 Current Weight (lbs) 113.398 kg Weight (Calculated Kilograms) 113.4 Weight (Calculated Grams) 642673.1 [place] Body Weight 166 % [place] Body Weight 151 Body Mass Index (BMI) 35.9 Weight Status Obese GI Symptoms Last BM None noted Food Allergies No Cultural/Ethnic/Restoration Belief None noted. Skin Integrity/Comment: Armando score 18 Estimated Nutritional Goals BEE in Kcals: Adj wt of IBW Calories/Kcals/Kg 25-30 Kcals Calculated 8210-1004 Protein: Adj wt of IBW Protein g/k.8-1 Protein Calculated 68-85 Fluid: ml 4599-0682 Nutritional Problem No current Nutrition Prob Problem N/A Malnutrition Alert Is there a minimum of two criteria No selected? Query Text:Check all the applicable criteria. A minimum of two criteria are recommended for diagnosis of either severe or non-severe malnutrition. Malnutrition Related to Morbid Obesity Malnutrition related to morbid obesity No Intervention/Recommendation Comments Recommend continuing diet as prescribed. Expected Outcomes/Goals Expected Outcomes/Goals - Maintain 100% PO intake - Labs return to WNL - GI function normal - Wt maintenance - Skin integrity WNL
[2018-04-09] MEDS: Multivitamin Tab PO SCH (08:46)
--- NOTE | 2018-04-09 13:21 | Progress Notes ---
DATE: 04/09/2018 Case was discussed with staff of the patient, reviewed records. The patient continues to be easily agitated, confused, continues to be irritable. He is demented. Continues to be unable to participate in meaningful conversation or make safe plan for self-care. He is compliant now with the medication with no side effects, no sedation, no nausea, no extrapyramidal symptoms. Seroquel was added by 12.5 mg that was added daily, he is already on 50 mg at bedtime. No side effects with the medication, no sedation, no nausea, no extrapyramidal symptoms. We will continue to work with the patient in group therapy, milieu therapy and adjust the medications as needed. [facility]# [id number]
--- NOTE | 2018-04-09 18:32 | Progress Notes ---
DATE: 04/09/2018 SUBJECTIVE: The patient was seen in the dining area. The patient is a poor historian due to medical condition and appears to be guarded. Easily gets frustrated. Otherwise, the patient appears to be in no acute distress. OBJECTIVE: VITAL SIGNS: Temperature 97.9, heart rate 62, blood pressure 130/77, respirations 20, 96% on room air. HEENT: Head is atraumatic and normocephalic. Eyes: Bilateral conjunctivae are clear. Bilateral pupils are equally round and reactive. NECK: Supple. No JVD. CARDIOVASCULAR: S1 and S2, without murmur. PULMONARY: Clear to auscultation. GASTROINTESTINAL: Soft and nontender without guarding. Positive bowel sounds. MUSCULOSKELETAL: No clubbing. No cyanosis noted. ASSESSMENT: 1. Dementia. 2. Hypertension. 3. Osteoarthritis. PLAN: We will keep the patient in the Inpatient Psychiatric Unit. We will follow up with a psychiatrist to monitor the patient's condition and behavior. Treatment plans were discussed with the patient's nurse. Treatment plans were discussed with Dr. Quesada. JOB# [id number]
[2018-04-10] MEDS: Multivitamin Tab PO SCH (08:39)
--- NOTE | 2018-04-10 11:27 | Progress Notes ---
DATE: 04/06/2018 DATE OF SERVICE: 04/06/2018 SUBJECTIVE: Chart reviewed and the patient interviewed. Also discussed the patient's condition with the staff and reviewed records and labs. The patient is still anxious and is still depressed and isolated. The patient also is still having unpredictable behavior. The patient also still has episodes of agitation, irritability and confusion. Otherwise, the patient needs lots of redirections. ASSESSMENT: The patient is still confused and agitated. TREATMENT PLAN: Continue to monitor his behavior and his condition closely. Also, continue Seroquel 50 mg at bedtime and trazodone 50 mg at bedtime. Also, continue to work on his poor impulse control and his unpredictable behavior and continue to follow up closely. JOB# [id number]
--- NOTE | 2018-04-10 12:21 | Progress Notes ---
DATE: 04/07/2018 DATE: 04/07/2018. SUBJECTIVE: Chart reviewed and the patient interviewed. Also discussed the patient's condition with the staff and reviewed records and labs. The patient seems to be slightly calmer and his agitation and inappropriate behavior problem seems to be slightly less. The patient still has episodes of anger and irritability, but also seems to be slightly less and showing some improvement. He also is still interacting more with others. Also, the patient continued to comply with taking his medications with no side effects of medications. ASSESSMENT: The patient is still confused and is still agitated. TREATMENT PLAN: Continue to monitor his behavior and his condition closely. Also, continue to work on his ineffective coping and irritability as well as his treatment. Continue Seroquel 50 mg at bedtime and trazodone 50 mg at bedtime and continue to follow up. JOB# [id number]
--- NOTE | 2018-04-10 12:40 | Internal Medicine Prog Note ---
Internal Medicine Subjective - Subjective Patient seen and examined:: chart reviewed Patient is:: awake (Patient is irritated and easily agitated.), agitated, confused, other (continue to be confused and agitated) Patient Complaints of:: other (Hx of Dementia.) Per staff patient has:: no adverse event, no episodes of fall, agitated Internal Medicine Objective - Results Result Diagrams: 03/31/18 21:05 03/31/18 21: Recent Labs: Laboratory Last Values WBC 3.6 Th/cmm (4.8-10.8) L 03/31/18 21: RBC 4.33 Mil/cmm (3.80-5.80) 03/31/18 21: Hgb 12.2 gm/dL (12-16) 03/31/18 21: Hct 38.4 % (41.0-60) L 03/31/18 21: MCV 88.7 fl (80-99) 03/31/18 21: MCH 28.1 pg (27.0-31.0) 03/31/18 21: MCHC Differential 31.7 pg (28.0-36.0) 03/31/18 21: RDW 12.4 % (11.5-20.0) 03/31/18: Plt Count 182 Th/cmm (150-400) 03/31/18 21:05 MPV 7.6 fl 03/31/18 21:05 Neutrophils % 50.0 % (40.0-80.0) 03/31/18 21: Lymphocytes % 30.6 % (20.0-50.0) 03/31/18 21: Monocytes % 14.8 % (2.0-10.0) H 03/31/18 21:05 Eosinophils % 2.5 % (0.0-5.0) 03/31/18 21: Basophils % 2.1 % (0.0-2.0) H 03/31/18 21:05 Sodium 142 mEq/L (136-145) 03/31/18 21:05 Potassium 3.9 mEq/L (3.5-5.1) 03/31/18 21:05 Chloride 109 mEq/L (98-107) H 03/31/18 21:05 Carbon Dioxide 27.1 mEq/L (21.0-31.0) 03/31/18 21:05 Anion Gap 9.8 (7.0-16.0) 03/31/18 21:05 BUN 26 mg/dL (7-25) H 03/31/18 21:05 Creatinine 1.3 mg/dL (0.7-1.3) 03/31/18 21:05 Est GFR ( Amer) TNP 03/31/18 21:05 Est GFR (Non-Af Amer) TNP 03/31/18 21:05 BUN/Creatinine Ratio 20.0 03/31/18 21:05 Glucose 98 mg/dL (70-105) 03/31/18 21:05 POC Glucose 169 MG/DL (70 - 105) H 04/02/18 20:51 Whole Bld Lactic Acid 0.85 mmol/L (0.60-1.99) 03/31/18 21:05 Calcium 9.2 mg/dL (8.6-10.3) 03/31/18 21:05 Total Bilirubin 0.3 mg/dL (0.3-1.0) 03/31/18 21:05 AST 11 U/L (13-39) L 03/31/18 21:05 ALT 7 U/L (7-52) 03/31/18 21:05 Alkaline Phosphatase 56 U/L (34-104) 03/31/18 21:05 Total Protein 6.4 gm/dL (6.0-8.3) 03/31/18 21:05 Albumin 3.7 gm/dL (4.2-5.5) L 03/31/18 21:05 Globulin 2.7 gm/dL 03/31/18 21:05 Albumin/Globulin Ratio 1.4 (1.0-1.8) 03/31/18 21:05 Triglycerides 86 mg/dL (<150) 03/31/18 21:05 Cholesterol 153 mg/dL (<200) 03/31/18 21:05 LDL Cholesterol Direct 108 mg/dL (75-193) 03/31/18 21:05 HDL Cholesterol 38 mg/dL (23-92) 03/31/18 21:05 TSH 1.95 uIU/ml (0.34-5.60) 03/31/18 21:05 Urine Source CLEAN C 03/31/18 21:33 Urine Color YELLOW 03/31/18 21:33 Urine Clarity CLEAR (CLEAR) 03/31/18 21: Urine pH 7.0 (4.6 - 8.0) 03/31/18 21: Ur Specific [place] 1.020 (1.005-1.030) 03/31/18 21:33 Urine Protein NEGATIVE mg/dL (NEGATIVE) 03/31/18 21: Urine Glucose (UA) NEGATIVE mg/dL (NEGATIVE) 03/31/18: Urine Ketones NEGATIVE mg/dL (NEGATIVE) 03/31/18 21: Urine Blood NEGATIVE (NEGATIVE) 03/31/18 21: Urine Nitrate NEGATIVE (NEGATIVE) 03/31/18: Urine Bilirubin NEGATIVE (NEGATIVE) 03/31/18: Urine Urobilinogen 1.0 E.U./dL (0.2 - 1.0) 03/31/18 21:33 Ur Leukocyte Esterase NEGATIVE (NEGATIVE) 03/31/18: Urine RBC NONE SEEN /hpf (0-5) 03/31/18:33 Urine WBC 2-5 /hpf (0-5) 03/31/18 21:33 Ur Epithelial Cells NONE SEEN /lpf (FEW) 03/31/18:33 Urine Bacteria FEW /hpf (NONE SEEN) 03/31/18 21: Salicylates < 25.0 mg/L (30.0-100.0) L 03/31/18 21:05 Urine Opiates Screen NEGATIVE (NEGATIVE) 03/31/18: Urine Methadone Screen NEGATIVE (NEGATIVE) 03/31/18: Acetaminophen < 10.0 ug/mL (10.0-30.0) L 03/31/18 21:05 Ur Barbiturates Screen NEGATIVE (NEGATIVE) 03/31/18 21:33 Ur Tricyclics Screen NEGATIVE (NEGATIVE) 03/31/18 21:33 Ur Phencyclidine Scrn NEGATIVE (NEGATIVE) 03/31/18 21: Amphetamines Screen NEGATIVE (NEGATIVE) 03/31/18 21:33 U Methamphetamines Scrn NEGATIVE (NEGATIVE) 03/31/18 21: U Benzodiazepines Scrn NEGATIVE (NEGATIVE) 03/31/18 21: U Cocaine Metab Screen NEGATIVE (NEGATIVE) 03/31/18 21: U Cannabinoids Screen NEGATIVE (NEGATIVE) 03/31/18 21:33 Ethyl Alcohol < 10 mg/dL (0-10) 03/31/18 21:05 RPR NONREACTIVE (NONREACTIVE) 03/31/18 21:05 - Physical Exam Vitals and I&O: Vital Signs Temp 98.1 F 04/10/18 06:34 Pulse 63 04/10/18 08:41 Resp 19 04/10/18 06:34 BP 141/62 04/10/18 08:41 Pulse Ox 100 04/10/18 06:34 Intake & Output 04/09/18 04/10/18 04/10/18 18:59 06:59 18:59 Intake Total 850 240 Balance 850 240 Intake: Oral 850 240 Other: # Voids 4 2 # Bowel Movements 0 Active Medications: Current Medications Acetaminophen (Tylenol) 650 mg PO Q4HR PRN PRN Reason: Mild Pain / Temp above 100 Stop: 05/30/18 22:51 Al Hydrox/Mg Hydrox/Simethicone (Maalox) 30 ml PO Q4HR PRN PRN Reason: GI DISTRESS Stop: 05/30/18 22:51 Amlodipine Besylate (Norvasc) 10 mg PO DAILY [facility] Stop: 05/31/18 08:59 Last Admin: 04/10/18 08:41 Dose: 10 mg Baclofen (Lioresal) 5 mg PO DAILY BETH Stop: 05/31/18 08:59 Last Admin: 04/10/18 08:39 Dose: 5 mg Docusate Sodium (Colace) 100 mg PO BID BETH Stop: 05/31/18 08:59 Last Admin: 04/10/18 08:39 Dose: 100 mg Hydralazine HCl (Apresoline) 10 mg PO Q8H BETH Stop: 05/30/18 23:14 Last Admin: 04/10/18 06:35 Dose: 10 mg Lorazepam (Ativan) 0.5 mg PO Q4HR PRN; Protocol PRN Reason: Anxiety Stop: 04/30/18 22:51 Last Admin: 04/05/18 06:16 Dose: 0.5 mg Losartan Potassium (Cozaar) 100 mg PO DAILY BETH Stop: 05/31/18 08:59 Last Admin: 04/10/18 08:40 Dose: 100 mg Magnesium Hydroxide (Milk Of Magnesia) 30 ml PO HS PRN PRN Reason: Constipation Multivitamins/Vitamin C (Theragran) 1 tab PO DAILY BETH Stop: 05/31/18 08:59 Last Admin: 04/10/18 08:39 Dose: 1 tab Quetiapine Fumarate (Seroquel) 50 mg PO HS BETH; Protocol Stop: 05/31/18 20:59 Last Admin: 04/09/18 20:41 Dose: 50 mg Quetiapine Fumarate (Seroquel) 12.5 mg PO DAILY BETH; Protocol Stop: 06/07/18 08:59 Last Admin: 04/10/18 08:39 Dose: 12.5 mg Trazodone HCl (Desyrel) 50 mg PO HS BETH; Protocol Stop: 05/31/18 20:59 Last Admin: 04/09/18 20:42 Dose: 50 mg General: weak, demented HEENT: NC/AT Neck: Supple Lungs: CTAB Cardiovascular: RRR, Normal S1, Normal S2 Abdomen: soft Extremities: clear Neurological: no change, disorganized Internal Medicine Assmt/Plan - Assessment Assessment: severe agitation/Irritable unpredictable/confused dementia htn h/o leukemia - Plan Plan: as per psych will monitor labs Monitor vitals diet review meds continue present care management Nutritional Asmnt/Malnutr-PDOC - Dietary Evaluation Malnutrition Findings (Please click <Entered> for more info): Nutritional Asmnt/Malnutrition Start: 04/02/18 15: 16 Text: Status: Complete Freq: Protocol: Document 04/02/18 15:17 RHAQUE (Rec: 04/02/18 15:38 [email or web address] [id number]) Nutritional Asmnt/Malnutrition Patient General Information Nutritional Screening Moderate Risk Diagnosis Psychosis Pertinent Medical Hx/Surgical Hx (per Admission notes:) Transient alteration of awareness, Altered mental status, Essential (Primary) HTN, Pure hypercholesterolemia , Anal polyp, Cerebrovascular disease (unspecified), Syncope and Collapse, Chronic Kidney Disease, BPH without lower urinary tract symptoms, Dementia, Alzheimer's Disease. Subjective Information Pt was sent here by [facility]. He was fast asleep at the time of visit. Spoke to DESTINY Chun about his intake. Pt's PHARMACEUTICAL LABORATORY TECHNICIAN was nearby and confirmed that his PO intake is excellent and ~ 100%. There are no records of B.M.s, but the pt does visit the bathroom by himself, so there is no way to be certain if he is contipated. Current Diet Order/ Nutrition Support [facility] Soft Chopped (Large portion [place]) Patient / S.O Not Indicated Pertinent Medications Docusate, MultiVit C, Seroquel , Trazodone Pertinent Labs (03/31) Cl - 109 H, BUN 26 H, AST 11 L, Alb 3.7 L Nutritional Hx/Data Height 1.78 m Height (Calculated Centimeters) 177.8 Current Weight (lbs) 113.398 kg Weight (Calculated Kilograms) 113.4 Weight (Calculated Grams) 751825.1 [place] Body Weight 166 % [place] Body Weight 151 Body Mass Index (BMI) 35.9 Weight Status Obese GI Symptoms Last BM None noted Food Allergies No Cultural/Ethnic/[employer] Belief None noted. Skin Integrity/Comment: Armando score 18 Estimated Nutritional Goals BEE in Kcals: Adj wt of IBW Calories/Kcals/Kg 25-30 Kcals Calculated 5111-8431 Protein: Adj wt of IBW Protein g/k.8-1 Protein Calculated 68-85 Fluid: ml 4224-0828 Nutritional Problem No current Nutrition Prob Problem N/A Malnutrition Alert Is there a minimum of two criteria No selected? Query Text:Check all the applicable criteria. A minimum of two criteria are recommended for diagnosis of either severe or non-severe malnutrition. Malnutrition Related to Morbid Obesity Malnutrition related to morbid obesity No Intervention/Recommendation Comments Recommend continuing diet as prescribed. Expected Outcomes/Goals Expected Outcomes/Goals - Maintain 100% PO intake - Labs return to WNL - GI function normal - Wt maintenance - Skin integrity WNL
--- NOTE | 2018-04-10 18:00 | Psychiatric Evaluation ---
DATE OF SERVICE: PSYCHIATRIC INITIAL EVALUATION AND MENTAL STATUS EXAM CHIEF COMPLAINT: Agitation and combative behavior. HISTORY OF PRESENT ILLNESS: The patient is an 83-year-old male who was transferred from [facility]. The patient was combative in the [facility] and anxious and also uncooperative with the staff. The patient also was refusing to take his psychotropic medications. He also was easily agitated. Staff was not able to handle his behavior and the patient was admitted to the hospital. PAST PSYCHIATRIC HISTORY: The patient has history of psychosis and a history of agitation. The patient has been taking Seroquel in a dose of 50 mg at bedtime with no much help. PAST MEDICAL HISTORY: The patient has history of hypertension and chronic renal disease and anal polyp and hypercholesterolemia. SOCIAL HISTORY: The patient lives in [facility]. No known alcohol or drug use. ALLERGIES: No known allergies. MENTAL STATUS EXAMINATION: The patient appears slightly older than his stated age. Anxious. Irritable mood. Gets easily agitated. Thought processes are circumstantial with flight of ideas. The patient denies any auditory or visual hallucinations, but seems to be suspicious and paranoid. Denied any thoughts of suicide or homicide. The patient is alert and oriented to situation, but not to place or person. Impaired immediate and recent memory, but intact remote memory. Poor insight and poor judgment. ASSESSMENT: PRIMARY DIAGNOSIS: Unspecified psychosis. SECONDARY DIAGNOSES: Dementia, moderate to severe, with psychotic features and behavioral disturbances. TREATMENT PLAN: We will monitor behavior and condition closely. Also, we will start individual as well as milieu psychotherapy. Also, will adjust psychotropic medications. ESTIMATED LENGTH OF STAY: 5-7 days. THE PATIENT'S STRENGTHS AND WEAKNESSES: The patient's strength is not clear at this time. Weakness is his ineffective coping and poor impulse control. AFTER DISCHARGE PLAN: Outpatient treatment and followup, will continue as an outpatient. [facility]# [id number]
--- NOTE | 2018-04-10 18:27 | Progress Notes ---
DATE: SUBJECTIVE: Chart reviewed and the patient interviewed, also discussed the patient's condition with the staff and reviewed records and labs. The patient is still confused and forgetful. The patient also is still easily agitated and is still unable to carry on coherent conversation. The patient also has difficulty sleeping at night, also unpredictable behavior. Otherwise, the patient is compliant with taking medications with no side effects. ASSESSMENT: The patient is still agitated and confused and needs lots of redirections. TREATMENT PLAN: Continue to monitor behavior and condition closely. Also, we will increase Seroquel to 12.5 mg in the morning and 50 mg at bedtime and we will continue to follow up closely. JOB# [id number]
--- NOTE | 2018-04-10 21:48 | Progress Notes ---
DATE: 04/10/2018 PROGRESS ON THE UNIT: Case is discussed with staff of the patient, reviewed records. The patient continues to have episodes of agitation, irritability. He continues to have inappropriate behavior, needing redirection. In general, the staff believes he may be showing some progress. He has been more compliant with the medications with no side effects, no sedation, no nausea, and no extrapyramidal symptoms. We will continue to work with the patient in group therapy and milieu therapy, adjust medications as needed. JOB# [id number]
--- NOTE | 2018-04-11 09:19 | Internal Medicine Prog Note ---
Internal Medicine Subjective - Subjective Service Date: 04/11/18 Patient seen and examined:: with staff, chart reviewed Patient is:: awake (Patient is irritated and easily agitated.), verbal, agitated , confused, other (continue to be confused and agitated) Patient Complaints of:: other (Hx of Dementia, continues to have inappropriate behavior,needing redirection.) Per staff patient has:: no adverse event, no episodes of fall, agitated Internal Medicine Objective - Results Result Diagrams: 03/31/18 21:03/31/18 21: Recent Labs: Laboratory Last Values WBC 3.6 Th/cmm (4.8-10.8) L 03/31/18 21: RBC 4.33 Mil/cmm (3.80-5.80) 03/31/18 21: Hgb 12.2 gm/dL (12-16) 03/31/18 21: Hct 38.4 % (41.0-60) L 03/31/18: MCV 88.7 fl (80-99) 03/31/18 21:05 MCH 28.1 pg (27.0-31.0) 03/31/18 21: MCHC Differential 31.7 pg (28.0-36.0) 03/31/18 21: RDW 12.4 % (11.5-20.0) 03/31/18 21: Plt Count 182 Th/cmm (150-400) 03/31/18 21: MPV 7.6 fl 03/31/18 21: Neutrophils % 50.0 % (40.0-80.0) 03/31/18 21: Lymphocytes % 30.6 % (20.0-50.0) 03/31/18 21: Monocytes % 14.8 % (2.0-10.0) H 03/31/18 21: Eosinophils % 2.5 % (0.0-5.0) 03/31/18 21: Basophils % 2.1 % (0.0-2.0) H 03/31/18 21:05 Sodium 142 mEq/L (136-145) 03/31/18 21: Potassium 3.9 mEq/L (3.5-5.1) 03/31/18 21: Chloride 109 mEq/L (98-107) H 03/31/18 21:05 Carbon Dioxide 27.1 mEq/L (21.0-31.0) 03/31/18 21:05 Anion Gap 9.8 (7.0-16.0) 03/31/18 21:05 BUN 26 mg/dL (7-25) H 03/31/18 21:05 Creatinine 1.3 mg/dL (0.7-1.3) 03/31/18 21:05 Est GFR ( Amer) TNP 03/31/18 21:05 Est GFR (Non-Af Amer) TNP 03/31/18 21:05 BUN/Creatinine Ratio 20.0 03/31/18 21:05 Glucose 98 mg/dL (70-105) 03/31/18 21:05 POC Glucose 169 MG/DL (70 - 105) H 04/02/18 20:51 Whole Bld Lactic Acid 0.85 mmol/L (0.60-1.99) 03/31/18 21:05 Calcium 9.2 mg/dL (8.6-10.3) 03/31/18 21:05 Total Bilirubin 0.3 mg/dL (0.3-1.0) 03/31/18 21:05 AST 11 U/L (13-39) L 03/31/18 21:05 ALT 7 U/L (7-52) 03/31/18 21:05 Alkaline Phosphatase 56 U/L (34-104) 03/31/18 21:05 Total Protein 6.4 gm/dL (6.0-8.3) 03/31/18 21:05 Albumin 3.7 gm/dL (4.2-5.5) L 03/31/18 21:05 Globulin 2.7 gm/dL 03/31/18 21:05 Albumin/Globulin Ratio 1.4 (1.0-1.8) 03/31/18 21:05 Triglycerides 86 mg/dL (<150) 03/31/18 21:05 Cholesterol 153 mg/dL (<200) 03/31/18 21:05 LDL Cholesterol Direct 108 mg/dL (75-193) 03/31/18 21:05 HDL Cholesterol 38 mg/dL (23-92) 03/31/18 21:05 TSH 1.95 uIU/ml (0.34-5.60) 03/31/18 21:05 Urine Source CLEAN C 03/31/18 21:33 Urine Color YELLOW 03/31/18 21:33 Urine Clarity CLEAR (CLEAR) 03/31/18 21: Urine pH 7.0 (4.6 - 8.0) 03/31/18 21:33 Ur Specific [place] 1.020 (1.005-1.030) 03/31/18 21:33 Urine Protein NEGATIVE mg/dL (NEGATIVE) 03/31/18: Urine Glucose (UA) NEGATIVE mg/dL (NEGATIVE) 03/31/18 21: Urine Ketones NEGATIVE mg/dL (NEGATIVE) 03/31/18 21: Urine Blood NEGATIVE (NEGATIVE) 03/31/18: Urine Nitrate NEGATIVE (NEGATIVE) 03/31/18: Urine Bilirubin NEGATIVE (NEGATIVE) 03/31/18: Urine Urobilinogen 1.0 E.U./dL (0.2 - 1.0) 03/31/18 21: Ur Leukocyte Esterase NEGATIVE (NEGATIVE) 03/31/18 21:33 Urine RBC NONE SEEN /hpf (0-5) 03/31/18 21:33 Urine WBC 2-5 /hpf (0-5) 03/31/18:33 Ur Epithelial Cells NONE SEEN /lpf (FEW) 03/31/18 21:33 Urine Bacteria FEW /hpf (NONE SEEN) 03/31/18 21:33 Salicylates < 25.0 mg/L (30.0-100.0) L 03/31/18 21:05 Urine Opiates Screen NEGATIVE (NEGATIVE) 03/31/18 21: Urine Methadone Screen NEGATIVE (NEGATIVE) 03/31/18 21: Acetaminophen < 10.0 ug/mL (10.0-30.0) L 03/31/18 21: Ur Barbiturates Screen NEGATIVE (NEGATIVE) 03/31/18 21:33 Ur Tricyclics Screen NEGATIVE (NEGATIVE) 03/31/18 21:33 Ur Phencyclidine Scrn NEGATIVE (NEGATIVE) 03/31/18 21:33 Amphetamines Screen NEGATIVE (NEGATIVE) 03/31/18 21:33 U Methamphetamines Scrn NEGATIVE (NEGATIVE) 03/31/18 21:33 U Benzodiazepines Scrn NEGATIVE (NEGATIVE) 02/21/19 21:33 U Cocaine Metab Screen NEGATIVE (NEGATIVE) 03/31/18 21:33 U Cannabinoids Screen NEGATIVE (NEGATIVE) 03/31/18 21:33 Ethyl Alcohol < 10 mg/dL (0-10) 03/31/18 21:05 RPR NONREACTIVE (NONREACTIVE) 03/31/18 21:05 - Physical Exam Vitals and I&O: Vital Signs Temp 98 F 04/10/18 20:31 Pulse 76 04/10/18 23:00 Resp 19 04/10/18 20:31 BP 152/56 04/10/18 23:00 Pulse Ox 97 04/10/18 20:31 Intake & Output 04/10/18 04/11/18 04/11/18 18:59 06:59 18:59 Intake Total 900 240 Balance 900 240 Intake: Oral 900 240 Other: # Voids 3 1 # Bowel Movements 0 1 Active Medications: Current Medications Acetaminophen (Tylenol) 650 mg PO Q4HR PRN PRN Reason: Mild Pain / Temp above 100 Stop: 05/30/18 22:51 Al Hydrox/Mg Hydrox/Simethicone (Maalox) 30 ml PO Q4HR PRN PRN Reason: GI DISTRESS Stop: 05/30/18 22:51 Amlodipine Besylate (Norvasc) 10 mg PO DAILY BETH Stop: 05/31/18 08:59 Last Admin: 04/10/18 08:41 Dose: 10 mg Baclofen (Lioresal) 5 mg PO DAILY BETH Stop: 05/31/18 08:59 Last Admin: 04/10/18 08:39 Dose: 5 mg Docusate Sodium (Colace) 100 mg PO BID BETH Stop: 05/31/18 08:59 Last Admin: 04/10/18 16:34 Dose: 100 mg Hydralazine HCl (Apresoline) 10 mg PO Q8H BETH Stop: 05/30/18 23:14 Last Admin: 04/11/18 06:33 Dose: Not Given Lorazepam (Ativan) 0.5 mg PO Q4HR PRN; Protocol PRN Reason: Anxiety Stop: 04/30/18 22:51 Last Admin: 04/05/18 06:16 Dose: 0.5 mg Losartan Potassium (Cozaar) 100 mg PO DAILY BETH Stop: 05/31/18 08:59 Last Admin: 04/10/18 08:40 Dose: 100 mg Magnesium Hydroxide (Milk Of Magnesia) 30 ml PO HS PRN PRN Reason: Constipation Multivitamins/Vitamin C (Theragran) 1 tab PO DAILY BETH Stop: 05/31/18 08:59 Last Admin: 04/10/18 08:39 Dose: 1 tab Quetiapine Fumarate (Seroquel) 50 mg PO HS BETH; Protocol Stop: 05/31/18 20:59 Last Admin: 04/10/18 20:51 Dose: Not Given Quetiapine Fumarate (Seroquel) 12.5 mg PO DAILY BETH; Protocol Stop: 06/07/18 08:59 Last Admin: 04/10/18 08:39 Dose: 12.5 mg Trazodone HCl (Desyrel) 50 mg PO HS BETH; Protocol Stop: 05/31/18 20:59 Last Admin: 04/10/18 20:52 Dose: Not Given General: weak, demented HEENT: NC/AT Neck: Supple Lungs: CTAB Cardiovascular: RRR, Normal S1, Normal S2 Abdomen: soft Extremities: clear Neurological: no change, disorganized Internal Medicine Assmt/Plan - Assessment Assessment: severe agitation/Irritable Inapropriate behavior, Needing redirection unpredictable/confused dementia htn h/o leukemia - Plan Plan: as per psych will monitor labs Monitor vitals diet review meds continue present care management Nutritional Asmnt/Malnutr-PDOC - Dietary Evaluation Malnutrition Findings (Please click <Entered> for more info): Nutritional Asmnt/Malnutrition Start: 04/02/18 15: 16 Text: Status: Complete Freq: Protocol: Document 04/02/18 15:17 SAMEER (Rec: 04/02/18 15:38 SAMEER [email or web address]) Nutritional Asmnt/Malnutrition Patient General Information Nutritional Screening Moderate Risk Diagnosis Psychosis Pertinent Medical Hx/Surgical Hx (per Admission notes:) Transient alteration of awareness, Altered mental status, Essential (Primary) HTN, Pure hypercholesterolemia , Anal polyp, Cerebrovascular disease (unspecified), Syncope and Collapse, Chronic Kidney Disease, BPH without lower urinary tract symptoms, Dementia, Alzheimer's Disease. Subjective Information Pt was sent here by [facility]. He was fast asleep at the time of visit. Spoke to DESTINY Chun about his intake. Pt's CHIEF OF POLICE was nearby and confirmed that his PO intake is excellent and ~ 100%. There are no records of B.M.s, but the pt does visit the bathroom by himself, so there is no way to be certain if he is contipated. Current Diet Order/ Nutrition Support [facility] Soft Chopped (Large portion [place]) Patient / S.O Not Indicated Pertinent Medications Docusate, MultiVit C, Seroquel , Trazodone Pertinent Labs (03/31) Cl - 109 H, BUN 26 H, AST 11 L, Alb 3.7 L Nutritional Hx/Data Height 1.78 m Height (Calculated Centimeters) 177.8 Current Weight (lbs) 113.398 kg Weight (Calculated Kilograms) 113.4 Weight (Calculated Grams) 787261.1 [place] Body Weight 166 % [place] Body Weight 151 Body Mass Index (BMI) 35.9 Weight Status Obese GI Symptoms Last BM None noted Food Allergies No Cultural/Ethnic/L[employer] Belief None noted. Skin Integrity/Comment: Armando score 18 Estimated Nutritional Goals BEE in Kcals: Adj wt of IBW Calories/Kcals/Kg 25-30 Kcals Calculated 7402-0360 Protein: Adj wt of IBW Protein g/k.8-1 Protein Calculated 68-85 Fluid: ml 7637-0505 Nutritional Problem No current Nutrition Prob Problem N/A Malnutrition Alert Is there a minimum of two criteria No selected? Query Text:Check all the applicable criteria. A minimum of two criteria are recommended for diagnosis of either severe or non-severe malnutrition. Malnutrition Related to Morbid Obesity Malnutrition related to morbid obesity No Intervention/Recommendation Comments Recommend continuing diet as prescribed. Expected Outcomes/Goals Expected Outcomes/Goals - Maintain 100% PO intake - Labs return to WNL - GI function normal - Wt maintenance - Skin integrity WNL
[2018-04-11] MEDS: Multivitamin Tab PO SCH (09:39)
--- NOTE | 2018-04-11 21:54 | Discharge Summary ---
DATE OF DISCHARGE: 04/11/2018 FINAL DIAGNOSIS AND PRIMARY DIAGNOSIS: Unspecified psychosis. SECONDARY DIAGNOSIS: Dementia, moderate to severe, with psychotic features. REASON FOR HOSPITALIZATION: The patient was admitted to the hospital from [facility] because of combative behavior and uncooperative with the staff and confusion and refused to take medications. HOSPITAL COURSE: The patient continued to be agitated and restless. The patient also was not able to follow any of staff directions. The patient was given Seroquel and the dose adjusted to 12.5 mg in the morning and 50 mg at bedtime. Gradually, the patient's affect was brighter. The patient was less irritable and less agitated. Also had no side effects of medications and the patient was discharged from the hospital back to [facility]. Physical exam was basically within normal. AFTER-DISCHARGE PLANS: The patient discharged from the hospital with plans for outpatient treatment and followup. EXPECTED OUTCOME AFTER DISCHARGE: Fair if the patient continues with his treatment and outpatient treatment plans. [facility]# [id number]
== END 2018-04-11 19:05 | DRG 885 ==
LOC: ER 20:14 → GERO 22:16 → UNDODISIN 04-11 18:17
PROVIDERS: ADMIT Psychiatry & Neurology Psychiatry; ATTEND Psychiatry & Neurology Psychiatry
DX: F29 Unspecified psychosis not due to a substance or known physiological condition (principal); C95.90 Leukemia, unspecified not having achieved remission; N18.9 Chronic kidney disease, unspecified; I12.9 Hypertensive chronic kidney disease with stage 1 through stage 4 chronic kidney disease, or unspecified chronic kidney disease; E78.00 Pure hypercholesterolemia, unspecified; G30.9 Alzheimer's disease, unspecified; F02.80 Dementia in other diseases classified elsewhere, unspecified severity, without behavioral disturbance, psychotic disturbance, mood disturbance, and anxiety; R45.1 Restlessness and agitation; F41.9 Anxiety disorder, unspecified
CPT/HCPCS: 36415-UA; 80053-TC; 80061-TC; 80307; 80320-TC; 80329-TC; 81001-TC; 82948-90; 83036-90; 83605; 84443-TC; 85025-TC; 86592-TC; 93005; Z7610

== ENCOUNTER 2019-01-19 18:07 | Inpatient (IN) | payer MEDICARE, OTHER ==
[2019-01-20 03:32] VITALS: BP 139/72
[2019-01-20] MEDS: Multivitamin Tab PO SCH (08:22)
--- NOTE | 2019-01-20 19:56 | Consultation ---
DATE OF CONSULTATION: INTERNAL MEDICINE CONSULTATION REFERRING PHYSICIAN: Janice Yi MD REASON FOR CONSULTATION: Medical management, history of chronic kidney disease, Alzheimer's disease, cerebrovascular accident, syncope, BPH and hypertension. HISTORY OF PRESENT ILLNESS: The patient is an 83-year-old -[place] gentleman who was transferred from [facility] for acute psych decompensation. The patient apparently was noted to have increased agitation. Apparently was urinating in the lobby in the dining room and hallways and was not able to be redirected. Therefore, he was transferred to this facility for further management and care. He is an extremely poor historian, but appears to be comfortable. Per medical records, he does have a history of chronic kidney disease, unspecified, ataxia, unsteady gait, neuromuscular dysfunction of bladder, history of CVA, previous syncope, BPH, essential hypertension, schizophrenia as well as major depressive disorder. He is currently lying in bed, appears to be comfortable, but not able to provide any relevant medical history. PAST MEDICAL HISTORY: As noted above. PAST SURGICAL HISTORY: Unknown. FAMILY HISTORY: Likely noncontributory to this admission. SOCIAL HISTORY: He currently lives in [facility] facility and he states that he is not a drinker and does not smoker, but this was unable to be verified. ALLERGIES: NKDA. OUTPATIENT MEDICATIONS: Tylenol 650 q. 4 hours p.r.n. for mild pain, Maalox p.r.n., amlodipine 10 mg every day, baclofen 5 mg daily, clonidine 0.1 q.6 p.r.n. for SBP greater than 160, hydralazine 10 mg q.8 p.r.n. for SBP greater than 160, milk of magnesia 30 mL at bedtime, Seroquel 12.5 daily and 50 mg at bedtime, trazodone 50 mg at bedtime, docusate sodium 100 mg b.i.d., Cozaar 100 mg every day and multivitamins. REVIEW OF SYSTEMS: GENERAL: Per records, there is no history of recent fever, chills or weight loss. CARDIOVASCULAR: No chest pain, no palpitations. No reported shortness of breath or cough or phlegm production noted. GASTROINTESTINAL: No bowel habit changes including no diarrhea. GENITOURINARY: There is no hematuria. He denies any dysuria. NEUROLOGIC: There are no reports of syncope or changes in his mental status. PHYSICAL EXAMINATION: VITAL SIGNS: Temperature 97.5, pulse 84, respirations 20, BP 128/64, satting 99% on room air. GENERAL: He is a well-developed, well-nourished male who appears to be in no distress, nontoxic appearing. HEAD AND NECK: Normocephalic, atraumatic. Pupils are reactive to light. Extraocular movements are intact. Oropharynx is moist and clear. CARDIAC: Regular rate and rhythm without any murmurs. LUNGS: Diminished at the bases, given poor inspiratory effort, but there is no audible rhonchi, crackles or wheezing. ABDOMEN: Soft, supple, nontender, nondistended, normoactive bowel sounds. EXTREMITIES: Lower extremities: No pedal edema. NEUROLOGIC: At this time, cranial nerves 2-12 appear to be intact. A full exam cannot be done given the patient's uncooperation. LABORATORY DATA: Not accessible at this time. IMPRESSION: 1. Acute psych decompensation. 2. History of schizophrenia. 3. History of cerebrovascular accident, likely with vascular dementia. 4. Major depressive disorder. 5. Essential hypertension. 6. History of chronic kidney disease. 7. History of benign prostatic hypertrophy. PLAN: The patient has been [facility] to the [facility] and he will remain on his current medications as scheduled. I will follow labs that have been ordered (hemoglobin A1c and a lipid profile) and I will also had a CBC, Chem-7, and UA. JOB# [id number]
[2019-01-21] MEDS: Multivitamin Tab PO SCH (09:02)
--- NOTE | 2019-01-21 09:50 | Internal Medicine Prog Note ---
Internal Medicine Subjective - Subjective Service Date: 01/21/19 (comfortable. elevated BP this morning) Patient seen and examined:: without staff Patient is:: asleep Internal Medicine Objective - Physical Exam Vitals and I&O: Vital Signs Temp 97.1 F 01/21/19 06:06 Pulse 69 01/21/19 09:00 Resp 17 01/21/19 06:06 BP 186/82 01/21/19 09:00 Pulse Ox 99 01/21/19 06:06 Intake & Output 01/20/19 01/21/19 01/21/19 18:59 06:59 18:59 Intake Total 240 Output Total 1 Balance 239 Intake: Oral 240 Output: Urine/Stool Mix 1 Other: # Voids 1 # Bowel Movements 0 Active Medications: Current Medications Acetaminophen (Tylenol) 650 mg PO Q4HR PRN PRN Reason: Pain (Mild 1-3) Stop: 03/21/19 05:07 Acetaminophen (Tylenol) 650 mg PO Q4HR PRN PRN Reason: FEVER Stop: 03/21/19 05:10 Docusate Sodium (Colace) 200 mg PO DAILY [facility] Stop: 03/21/19 08:59 Last Admin: 01/21/19 09:03 Dose: 200 mg Lorazepam (Ativan) 0.5 mg PO Q4HR PRN; Protocol PRN Reason: Anxiety Stop: 02/19/19 03:37 Last Admin: 01/21/19 09:02 Dose: 0.5 mg Losartan Potassium (Cozaar) 100 mg PO DAILY [facility] Stop: 03/21/19 08:59 Last Admin: 01/21/19 09:00 Dose: 100 mg Multivitamins/Vitamin C (Theragran) 1 tab PO DAILY [facility] Stop: 03/21/19 08:59 Last Admin: 01/21/19 09:02 Dose: 1 tab Quetiapine Fumarate (Seroquel) 50 mg PO HS BETH; Protocol Stop: 03/21/19 20:59 Last Admin: 01/20/19 20:26 Dose: 50 mg Zolpidem Tartrate (Ambien) 5 mg PO HS PRN PRN Reason: Insomnia Stop: 03/21/19 03:37 General: demented HEENT: NC/AT, PERRLA, EOMI Neck: Supple, No JVD, No thyromegaly, No LAD Lungs: CTAB Cardiovascular: RRR, Normal S1, Normal S2 Abdomen: soft, non-tender, thin, positive bowel sound Extremities: clear Internal Medicine Assmt/Plan - Assessment Assessment: ACUTE PSYCH DECOMPENSATION HISTORY OF SCHIZOPHRENIA ESSENTIAL HTN-OOC HISTORY OF CVA WITH VASCULAR DEMENTIA HX OF DEPRESSION HISTORY OF CRD HISTORY OF BPH - Plan Plan: CONT WITH CURRENT PSYCH MEDS CONT WITH CURRENT BP MEDS, CLONIDINE PRN Nutritional Asmnt/Malnutr-PDOC - Dietary Evaluation Malnutrition Findings (Please click <Entered> for more info): Nutritional Asmnt/Malnutrition Start: 01/20/19 13: 54 Text: Status: Active Freq: Protocol: Document 01/20/19 13:54 VIRGENKEN (Rec: 01/20/19 13:59 VIRGENKEN [email or web address]) Nutritional Asmnt/Malnutrition Patient General Information Nutritional Screening Moderate Risk Consult Diagnosis Psychosis Pertinent Medical Hx/Surgical Hx No H & P as of yet Subjective Information Consult: Underweight Pt is a 83-year-old male admitted on 01/20 d/t aggressive behavior. Received Consult for pt being classified as underweight, pt BMI is 22.97 (normal). Visited pt today at lunch, pt was eating lunch on his own, needed a reminder to get started eating. CUONG Reyes stated pt ate 100% breakfast this morning. Pt is confused, but self-feeds. Pt has noted Hx abnormal weight loss with associated protein calorie malnutrition in April 2018. Pt allowed me to check his shoulders, collar bone area and a little of his upper rib area. Pt had ribs visible with mild depressions and moderate muscle loss in clavicle bone region with some protrusion, bone more visible. Pt is currently eating well with prompting, will continue to monitor PO intake and continue nutrition focused physical examination when pt is available and willing. Anthropometrics HT: 510 WT: 160 LB (72.73 kg) BMI: 22.97 (Normal) GI/ Skin Integrity GI: WNL, Soft, Flat, Non- tender BM: Not Noted I/O: 120/Not Noted Skin: WNL, Intact Armando: 17 Diet Order: Soft, NA2gm Estimated Energy Needs: ( Geriatric, CBW) 0376-1296 kcals (25-30 kcals/ kg) 73-87g Pro (1.0-1.2 g/kg) 1668-1712 ml (25-30 ml/kg) Current Diet Order/ Nutrition Support Soft, NA2gm Pertinent Medications Colace, Cozaar, Theragran Pertinent Labs 01/19: Hgb/Hct 11.8/36.8, BUN/ Cr 28/1.35 Nutritional Hx/Data Height 1.78 m Height (Calculated Centimeters) 177.8 Current Weight (lbs) 72.575 kg Weight (Calculated Kilograms) 72.6 Weight (Calculated Grams) 06553.8 [place] Body Weight 166 LB (75.45 kg) % [place] Body Weight 96 Body Mass Index (BMI) 22.9 Weight Status Approriate GI Symptoms GI Symptoms None Last BM Not Noted Skin Integrity/Comment: Skin: WNL, Intact Armando: 17 Current %PO Good (75-100%) Estimated Nutritional Goals BEE in Kcals: Using Current wt Calories/Kcals/Kg 25-30 Protein: Using Current wt Protein g/k.0-1.2 Protein Calculated 73-87 Fluid: ml 4842-1330 ml (25-30 ml/kg) Nutritional Problem No current Nutrition Prob Problem No nutrition diagnosis at this time. Etiology N/A Signs/Symptoms: N/A Malnutrition Related to Morbid Obesity Malnutrition related to morbid obesity No Intervention/Recommendation Comments Continue Soft, NA2gm diet as tolerated. Expected Outcomes/Goals Expected Outcomes/Goals 1. PO intake to meet 75% of estimated nutritional needs. 2. Monitor PO intake, wt, nutrition related labs, and skin integrity. 3. F/U as moderate risk in 3-5 days, 01/23-01/25
--- NOTE | 2019-01-21 22:21 | Progress Notes ---
DATE: SUBJECTIVE: The patient seen, chart reviewed, discussed with staff. The patient coming from [facility], increased agitation, throwing feces, urinating, yelling, profanity, cursing, very confused, disoriented, has no idea where he is, just knows his name, does not know the year and the month, mumble to self, not really making much sense. Currently on dosing of Seroquel. Ongoing concerns for psychotic symptoms, bizarre symptoms, very impulsive, unpredictable. PLAN: We will continue to monitor. JOB# [id number]
[2019-01-22] MEDS: Multivitamin Tab PO SCH (08:09)
--- NOTE | 2019-01-22 11:18 | Internal Medicine Prog Note ---
Internal Medicine Subjective - Subjective Service Date: 01/22/19 (No events) Patient seen and examined:: without staff Internal Medicine Objective - Physical Exam Vitals and I&O: Vital Signs Temp 97.8 F 01/21/19 14:00 Pulse 70 01/21/19 15:03 Resp 20 01/21/19 14:00 BP 179/84 01/21/19 15:03 Pulse Ox 98 01/21/19 14:00 Intake & Output 01/21/19 01/22/19 01/22/19 18:59 06:59 18:59 Intake Total 1300 240 Balance 1300 240 Intake: Oral 1300 240 Other: # Voids 3 2 # Bowel Movements 0 Active Medications: Current Medications Acetaminophen (Tylenol) 650 mg PO Q4HR PRN PRN Reason: Pain (Mild 1-3) Stop: 03/21/19 05:07 Acetaminophen (Tylenol) 650 mg PO Q4HR PRN PRN Reason: FEVER Stop: 03/21/19 05:10 Docusate Sodium (Colace) 200 mg PO DAILY [facility] Stop: 03/21/19 08:59 Last Admin: 01/22/19 08:09 Dose: 200 mg Hydralazine HCl (Apresoline) 10 mg PO BID [facility] Stop: 03/22/19 09:59 Last Admin: 01/22/19 08:10 Dose: Not Given Lorazepam (Ativan) 0.5 mg PO Q4HR PRN; Protocol PRN Reason: Anxiety Stop: 02/19/19 03:37 Last Admin: 01/22/19 03:13 Dose: 0.5 mg Losartan Potassium (Cozaar) 100 mg PO DAILY [facility] Stop: 03/21/19 08:59 Last Admin: 01/22/19 08:10 Dose: Not Given Multivitamins/Vitamin C (Theragran) 1 tab PO DAILY [facility] Stop: 03/21/19 08:59 Last Admin: 01/22/19 08:09 Dose: 1 tab Quetiapine Fumarate (Seroquel) 50 mg PO HS [facility]ETH; Protocol Stop: 03/21/19 20:59 Last Admin: 01/21/19 20:22 Dose: 50 mg Zolpidem Tartrate (Ambien) 5 mg PO HS PRN PRN Reason: Insomnia Stop: 03/21/19 03:37 Last Admin: 12/14/19 20:22 Dose: 5 mg General: demented HEENT: NC/AT, PERRLA, EOMI Neck: Supple, No JVD, No thyromegaly, No LAD Lungs: CTAB Cardiovascular: RRR, Normal S1, Normal S2 Abdomen: soft, non-tender, thin, positive bowel sound Extremities: clear Internal Medicine Assmt/Plan - Assessment Assessment: ACUTE PSYCH DECOMPENSATION HISTORY OF SCHIZOPHRENIA ESSENTIAL HTN-OOC HISTORY OF CVA WITH VASCULAR DEMENTIA HX OF DEPRESSION HISTORY OF CRD HISTORY OF BPH - Plan Plan: CONT WITH CURRENT PSYCH MEDS CONT WITH CURRENT BP MEDS-(hydralazine increased, imdur dded) CLONIDINE PRN Nutritional Asmnt/Malnutr-PDOC - Dietary Evaluation Malnutrition Findings (Please click <Entered> for more info): Nutritional Asmnt/Malnutrition Start: 01/20/19 13: 54 Text: Status: Active Freq: Protocol: Document 01/20/19 13:54 SEVERINO (Rec: 01/20/19 13:59 SEVERINO [email or web address]) Nutritional Asmnt/Malnutrition Patient General Information Nutritional Screening Moderate Risk Consult Diagnosis Psychosis Pertinent Medical Hx/Surgical Hx No H & P as of yet Subjective Information Consult: Underweight Pt is a 83-year-old male admitted on 01/20 d/t aggressive behavior. Received Consult for pt being classified as underweight, pt BMI is 22.97 (normal). Visited pt today at lunch, pt was eating lunch on his own, needed a reminder to get started eating. CUONG Reyes stated pt ate 100% breakfast this morning. Pt is confused, but self-feeds. Pt has noted Hx abnormal weight loss with associated protein calorie malnutrition in April 2018. Pt allowed me to check his shoulders, collar bone area and a little of his upper rib area. Pt had ribs visible with mild depressions and moderate muscle loss in clavicle bone region with some protrusion, bone more visible. Pt is currently eating well with prompting, will continue to monitor PO intake and continue nutrition focused physical examination when pt is available and willing. Anthropometrics HT: 510 WT: 160 LB (72.73 kg) BMI: 22.97 (Normal) GI/ Skin Integrity GI: WNL, Soft, Flat, Non- tender BM: Not Noted I/O: 120/Not Noted Skin: WNL, Intact Armando: 17 Diet Order: Soft, NA2gm Estimated Energy Needs: ( Geriatric, CBW) 6157-3381 kcals (25-30 kcals/ kg) 73-87g Pro (1.0-1.2 g/kg) 5833-7107 ml (25-30 ml/kg) Current Diet Order/ Nutrition Support Soft, NA2gm Pertinent Medications Colace, Cozaar, Theragran Pertinent Labs 01/19: Hgb/Hct 11.8/36.8, BUN/ Cr 28/1.35 Nutritional Hx/Data Height 1.78 m Height (Calculated Centimeters) 177.8 Current Weight (lbs) 72.575 kg Weight (Calculated Kilograms) 72.6 Weight (Calculated Grams) 06804.8 [place] Body Weight 166 LB (75.45 kg) % [place] Body Weight 96 Body Mass Index (BMI) 22.9 Weight Status Approriate GI Symptoms GI Symptoms None Last BM Not Noted Skin Integrity/Comment: Skin: WNL, Intact Armando: 17 Current %PO Good (75-100%) Estimated Nutritional Goals BEE in Kcals: Using Current wt Calories/Kcals/Kg 25-30 Protein: Using Current wt Protein g/k.0-1.2 Protein Calculated 73-87 Fluid: ml 9635-5718 ml (25-30 ml/kg) Nutritional Problem No current Nutrition Prob Problem No nutrition diagnosis at this time. Etiology N/A Signs/Symptoms: N/A Malnutrition Related to Morbid Obesity Malnutrition related to morbid obesity No Intervention/Recommendation Comments Continue Soft, NA2gm diet as tolerated. Expected Outcomes/Goals Expected Outcomes/Goals 1. PO intake to meet 75% of estimated nutritional needs. 2. Monitor PO intake, wt, nutrition related labs, and skin integrity. 3. F/U as moderate risk in 3-5 days, 01/23-01/25
--- NOTE | 2019-01-23 08:04 | Progress Notes ---
DATE: 01/22/2019 SUBJECTIVE: An 83-year-old male, currently in the hospital, coming in from [facility] with increased agitation, throwing feces, urine. The patient agitated, currently in the observation room, aggressive. Staff having a real hard time controlling his behaviors. Ongoing symptoms. Staff concerned about safety, mostly safety of others. PLAN: I will be increasing his dosing of Seroquel today. Staff noting he is pretty hostile, pacing. JOB# [id number]
--- NOTE | 2019-01-23 08:11 | Progress Notes ---
DATE: 01/23/2019 PSYCHIATRIC PROGRESS NOTE SUBJECTIVE: Chart reviewed and the patient interviewed. Also discussed the patient's condition with the staff and reviewed records and labs. The patient is still easily agitated and still has unpredictable behavior. The patient also this morning seems to be sleepy and he did not want to answer any of my questions. Also, according to the staff, the patient has been resisting care and has been in irritable moods. On the other hand, the patient is taking his medications with no side effects of medications. ASSESSMENT: The patient is still agitated and easily irritable. TREATMENT PLAN: Continue to monitor his behavior and his condition closely. Also, continue Seroquel in a dose of 150 mg at bedtime and we will continue to follow up closely. JOB# [id number]
[2019-01-23] MEDS: Multivitamin Tab PO SCH (08:31)
--- NOTE | 2019-01-23 14:46 | Psychiatric Evaluation ---
DATE OF SERVICE: INITIAL EVALUATION MENTAL STATUS EXAM AGE: 83. SEX: Male. PHYSICIAN: Dr. Yi. CHIEF COMPLAINT: Agitation and irritable mood. HISTORY OF PRESENT ILLNESS: The patient is an 83-year-old male who was transferred from [facility] because of increased agitation. The patient has been in irritable mood and easily agitated. The patient also was urinating in the hospital lobby. The patient also was urinating in the resident facility in ____ room and in hallways and was not able to follow any directions. Also, he was throwing feces at different places in the facility according to the admission report from nursing staff. Also, not able to follow any of directions. The patient is still in angry and in irritable mood. The patient also is still easily agitated. The patient also is still suspicious and is still paranoid. He also is still unable to provide any safe plan for self-care. PAST PSYCHIATRIC HISTORY: The patient has history of dementia. PAST MEDICAL HISTORY: The patient has history of chronic kidney disease; neuromuscular dysfunction of the bladder that is unspecified; cerebrovascular disease, unspecified; ____ benign prostatic hypertrophy, and essential hypertension. SOCIAL HISTORY: The patient lives in [facility]. No known alcohol or drug use. ALLERGIES: No known allergies. MENTAL STATUS EXAMINATION: The patient appears his stated age. Slightly malnourished. Confused. Unable to answer any of the questions coherently. Easily irritable and easily agitated. Disorganized thoughts. ASSESSMENT: PRIMARY DIAGNOSIS: Unspecified psychosis. SECONDARY DIAGNOSIS: Dementia, moderate to severe, with psychotic features and behavioral disturbances. TREATMENT PLAN: We will continue monitoring his behavior and his condition closely. Also, we will continue working on his behavioral modification and adjusting Seroquel dose that the patient is already taking. ESTIMATED LENGTH OF STAY: 5-7 days. PATIENT'S STRENGTHS AND WEAKNESSES: The patient's strength is not clear at this time. Weaknesses is ineffective coping. AFTER DISCHARGE PLAN: The patient will return to [facility] and outpatient treatment to followup there. JOB# [id number]
--- NOTE | 2019-01-23 20:37 | Internal Medicine Prog Note ---
Internal Medicine Subjective - Subjective Service Date: 01/23/19 (CONFUSED) Patient seen and examined:: without staff Internal Medicine Objective - Physical Exam Vitals and I&O: Vital Signs Temp 97.4 F 01/22/19 14:00 Pulse 62 01/23/19 17:53 Resp 18 01/22/19 14:00 BP 150/57 01/23/19 17:53 Pulse Ox 97 01/22/19 14:00 Intake & Output 01/23/19 01/23/19 01/24/19 06:59 18:59 06:59 Intake Total 300 860 Balance 300 860 Intake: Oral 300 860 Other: # Voids 3 4 # Bowel Movements 1 Active Medications: Current Medications Acetaminophen (Tylenol) 650 mg PO Q4HR PRN PRN Reason: Pain (Mild 1-3) Stop: 03/21/19 05:07 Acetaminophen (Tylenol) 650 mg PO Q4HR PRN PRN Reason: FEVER TEMPERATURE ABOVE 100 Stop: 03/21/19 05:10 Docusate Sodium (Colace) 200 mg PO DAILY [facility] Stop: 03/21/19 08:59 Last Admin: 01/23/19 08:31 Dose: 200 mg Hydralazine HCl (Apresoline) 25 mg PO BID [facility] Stop: 03/23/19 16:59 Last Admin: 01/23/19 17:53 Dose: 25 mg Isosorbide Mononitrate (Imdur) 30 mg PO DAILY [facility] Stop: 03/23/19 11:14 Last Admin: 01/23/19 08:08 Dose: 30 mg Lorazepam (Ativan) 0.5 mg PO Q4HR PRN; Protocol PRN Reason: Anxiety Stop: 02/19/19 03:37 Last Admin: 01/22/19 13:41 Dose: 0.5 mg Losartan Potassium (Cozaar) 100 mg PO DAILY [facility] Stop: 03/21/19 08:59 Last Admin: 01/23/19 08:31 Dose: 100 mg Multivitamins/Vitamin C (Theragran) 1 tab PO DAILY [facility] Stop: 03/21/19 08:59 Last Admin: 01/23/19 08:31 Dose: 1 tab Quetiapine Fumarate (Seroquel) 100 mg PO HS [facility]; Protocol Stop: 03/23/19 20:59 Last Admin: 01/22/19 20:58 Dose: 100 mg Zolpidem Tartrate (Ambien) 5 mg PO HS PRN PRN Reason: Insomnia Stop: 03/21/19 03:37 Last Admin: 01/22/19 20:58 Dose: 5 mg General: demented HEENT: NC/AT, PERRLA, EOMI Neck: Supple, No JVD, No thyromegaly, No LAD Lungs: CTAB Cardiovascular: RRR, Normal S1, Normal S2 Abdomen: soft, non-tender, thin, positive bowel sound Extremities: clear Internal Medicine Assmt/Plan - Assessment Assessment: ACUTE PSYCH DECOMPENSATION HISTORY OF SCHIZOPHRENIA ESSENTIAL HTN-OOC HISTORY OF CVA WITH VASCULAR DEMENTIA HX OF DEPRESSION HISTORY OF CRD HISTORY OF BPH - Plan Plan: CONT WITH CURRENT PSYCH MEDS CONT WITH CURRENT BP MEDS PRN CLONIDINE Nutritional Asmnt/Malnutr-PDOC - Dietary Evaluation Malnutrition Findings (Please click <Entered> for more info): Nutritional Asmnt/Malnutrition Start: 01/20/19 13: 54 Text: Status: Active Freq: Protocol: Document 01/20/19 13:54 SEVERINO (Rec: 01/20/19 13:59 SEVERINO [email or web address]) Nutritional Asmnt/Malnutrition Patient General Information Nutritional Screening Moderate Risk Consult Diagnosis Psychosis Pertinent Medical Hx/Surgical Hx No H & P as of yet Subjective Information Consult: Underweight Pt is a 83-year-old male admitted on 01/20 d/t aggressive behavior. Received Consult for pt being classified as underweight, pt BMI is 22.97 (normal). Visited pt today at lunch, pt was eating lunch on his own, needed a reminder to get started eating. CUONG Reyes stated pt ate 100% breakfast this morning. Pt is confused, but self-feeds. Pt has noted Hx abnormal weight loss with associated protein calorie malnutrition in April 2018. Pt allowed me to check his shoulders, collar bone area and a little of his upper rib area. Pt had ribs visible with mild depressions and moderate muscle loss in clavicle bone region with some protrusion, bone more visible. Pt is currently eating well with prompting, will continue to monitor PO intake and continue nutrition focused physical examination when pt is available and willing. Anthropometrics HT: 510 WT: 160 LB (72.73 kg) BMI: 22.97 (Normal) GI/ Skin Integrity GI: WNL, Soft, Flat, Non- tender BM: Not Noted I/O: 120/Not Noted Skin: WNL, Intact Armando: 17 Diet Order: Soft, NA2gm Estimated Energy Needs: ( Geriatric, CBW) 8826-2276 kcals (25-30 kcals/ kg) 73-87g Pro (1.0-1.2 g/kg) 5198-0399 ml (25-30 ml/kg) Current Diet Order/ Nutrition Support Soft, NA2gm Pertinent Medications Colace, Cozaar, Theragran Pertinent Labs 01/19: Hgb/Hct 11.8/36.8, BUN/ Cr 28/1.35 Nutritional Hx/Data Height 1.78 m Height (Calculated Centimeters) 177.8 Current Weight (lbs) 72.575 kg Weight (Calculated Kilograms) 72.6 Weight (Calculated Grams) 36656.8 [place] Body Weight 166 LB (75.45 kg) % [place] Body Weight 96 Body Mass Index (BMI) 22.9 Weight Status Approriate GI Symptoms GI Symptoms None Last BM Not Noted Skin Integrity/Comment: Skin: WNL, Intact Armando: 17 Current %PO Good (75-100%) Estimated Nutritional Goals BEE in Kcals: Using Current wt Calories/Kcals/Kg 25-30 Protein: Using Current wt Protein g/k.0-1.2 Protein Calculated 73-87 Fluid: ml 4027-6750 ml (25-30 ml/kg) Nutritional Problem No current Nutrition Prob Problem No nutrition diagnosis at this time. Etiology N/A Signs/Symptoms: N/A Malnutrition Related to Morbid Obesity Malnutrition related to morbid obesity No Intervention/Recommendation Comments Continue Soft, NA2gm diet as tolerated. Expected Outcomes/Goals Expected Outcomes/Goals 1. PO intake to meet 75% of estimated nutritional needs. 2. Monitor PO intake, wt, nutrition related labs, and skin integrity. 3. F/U as moderate risk in 3-5 days, 01/23-01/25
--- NOTE | 2019-01-24 06:58 | Progress Notes ---
DATE: 01/24/2019 PSYCHIATRIC PROGRESS NOTE SUBJECTIVE: Chart reviewed and the patient interviewed. Also discussed the patient's condition with the staff and reviewed records and labs. The patient is still restless and is still easily agitated. The patient also is confused and restless, especially during the day. The patient also is resisting care and he refused to get his vital signs taken yesterday and gave the staff, difficult time to do so. He also is still aggressive at times. Also, during interview, the patient is rambling and actively responding to stimuli and have difficult time expressing himself. On the other hand, the patient is compliant with taking his medications with no side effects of medications. ASSESSMENT: The patient is still confused and agitated. TREATMENT PLAN: Continue to monitor behavior and condition closely. Also, we will change Seroquel to 25 mg twice a day and 100 mg at bedtime and continue to follow up closely and work on his irritability and agitation. JOB# [id number]
[2019-01-24] MEDS: Multivitamin Tab PO SCH (08:32)
[2019-01-25] MEDS: Multivitamin Tab PO SCH (08:23)
--- NOTE | 2019-01-25 11:19 | Progress Notes ---
DATE: 01/25/2019 DATE: 01/25/2019. SUBJECTIVE: Chart was reviewed and the patient interviewed. Also, discussed the patient's condition with the staff and reviewed records and labs. The patient seems to be slightly less irritable and less agitated since I increased his Seroquel yesterday. The patient is still confused and still needs lots of redirections. Also, he still had episodes of agitation and irritability. Otherwise, the patient is compliant with taking his medications with no side effects of medications. ASSESSMENT: The patient is still in irritable mood and agitated. TREATMENT PLAN: Continue monitoring his behavior and his condition closely. Also, continue adjusting psychotropic medications and followup. JOB# [id number]
--- NOTE | 2019-01-25 14:19 | Internal Medicine Prog Note ---
Internal Medicine Subjective - Subjective Service Date: 01/25/19 (no events) Patient seen and examined:: without staff Patient is:: asleep Internal Medicine Objective - Physical Exam Vitals and I&O: Vital Signs Temp 98.4 F 01/25/19 06:12 Pulse 68 01/25/19 08:24 Resp 19 01/25/19 06:12 BP 194/82 01/25/19 08:24 Pulse Ox 99 01/25/19 06:12 Intake & Output 01/24/19 01/25/19 01/25/19 18:59 06:59 18:59 Intake Total 900 360 Output Total 1 Balance 900 359 Intake: Oral 900 360 Output: Urine/Stool Mix 1 Other: # Voids 4 2 # Bowel Movements 1 0 Active Medications: Current Medications Acetaminophen (Tylenol) 650 mg PO Q4HR PRN PRN Reason: Pain (Mild 1-3) Stop: 03/21/19 05:07 Acetaminophen (Tylenol) 650 mg PO Q4HR PRN PRN Reason: FEVER TEMPERATURE ABOVE 100 Stop: 03/21/19 05:10 Docusate Sodium (Colace) 200 mg PO DAILY [facility] Stop: 03/21/19 08:59 Last Admin: 01/25/19 08:23 Dose: 200 mg Hydralazine HCl (Apresoline) 25 mg PO BID [facility] Stop: 03/23/19 16:59 Last Admin: 01/25/19 08:24 Dose: 25 mg Isosorbide Mononitrate (Imdur) 30 mg PO DAILY [facility] Stop: 03/23/19 11:14 Last Admin: 01/25/19 08:24 Dose: 30 mg Lorazepam (Ativan) 0.5 mg PO Q4HR PRN; Protocol PRN Reason: Anxiety Stop: 02/19/19 03:37 Last Admin: 01/22/19 13:41 Dose: 0.5 mg Losartan Potassium (Cozaar) 100 mg PO DAILY [facility] Stop: 03/21/19 08:59 Last Admin: 01/25/19 08:24 Dose: 100 mg Multivitamins/Vitamin C (Theragran) 1 tab PO DAILY [facility] Stop: 03/21/19 08:59 Last Admin: 01/25/19 08:23 Dose: 1 tab Quetiapine Fumarate (Seroquel) 100 mg PO HS [facility]; Protocol Stop: 03/23/19 20:59 Last Admin: 01/24/19 20:27 Dose: 100 mg Quetiapine Fumarate (Seroquel) 25 mg PO BID [facility]; Protocol Stop: 03/25/19 08:59 Last Admin: 01/25/19 08:23 Dose: 25 mg Zolpidem Tartrate (Ambien) 5 mg PO HS PRN PRN Reason: Insomnia Stop: 03/21/19 03:37 Last Admin: 01/24/19 21:46 Dose: 5 mg General: demented HEENT: NC/AT, PERRLA, EOMI Neck: Supple, No JVD, No thyromegaly, No LAD Lungs: CTAB Cardiovascular: RRR, Normal S1, Normal S2 Abdomen: soft, non-tender, thin, positive bowel sound Extremities: clear Internal Medicine Assmt/Plan - Assessment Assessment: ACUTE PSYCH DECOMPENSATION HISTORY OF SCHIZOPHRENIA ESSENTIAL HTN-OOC HISTORY OF CVA WITH VASCULAR DEMENTIA HX OF DEPRESSION HISTORY OF CRD HISTORY OF BPH - Plan Plan: CONT WITH CURRENT PSYCH MEDS CONT WITH CURRENT BP MEDS PRN CLONIDINE Nutritional Asmnt/Malnutr-PDOC - Dietary Evaluation Malnutrition Findings (Please click <Entered> for more info): Nutritional Asmnt/Malnutrition Start: 01/20/19 13: 54 Text: Status: Active Freq: Protocol: Document 01/20/19 13:54 SEVERINO (Rec: 01/20/19 13:59 SEVERINO [email or web address]) Nutritional Asmnt/Malnutrition Patient General Information Nutritional Screening Moderate Risk Consult Diagnosis Psychosis Pertinent Medical Hx/Surgical Hx No H & P as of yet Subjective Information Consult: Underweight Pt is a 83-year-old male admitted on 01/20 d/t aggressive behavior. Received Consult for pt being classified as underweight, pt BMI is 22.97 (normal). Visited pt today at lunch, pt was eating lunch on his own, needed a reminder to get started eating. CUONG Reyes stated pt ate 100% breakfast this morning. Pt is confused, but self-feeds. Pt has noted Hx abnormal weight loss with associated protein calorie malnutrition in April 2018. Pt allowed me to check his shoulders, collar bone area and a little of his upper rib area. Pt had ribs visible with mild depressions and moderate muscle loss in clavicle bone region with some protrusion, bone more visible. Pt is currently eating well with prompting, will continue to monitor PO intake and continue nutrition focused physical examination when pt is available and willing. Anthropometrics HT: 510 WT: 160 LB (72.73 kg) BMI: 22.97 (Normal) GI/ Skin Integrity GI: WNL, Soft, Flat, Non- tender BM: Not Noted I/O: 120/Not Noted Skin: WNL, Intact Armando: 17 Diet Order: Soft, NA2gm Estimated Energy Needs: ( Geriatric, CBW) 8990-7253 kcals (25-30 kcals/ kg) 73-87g Pro (1.0-1.2 g/kg) 9545-7201 ml (25-30 ml/kg) Current Diet Order/ Nutrition Support Soft, NA2gm Pertinent Medications Colace, Cozaar, Theragran Pertinent Labs 01/19: Hgb/Hct 11.8/36.8, BUN/ Cr 28/1.35 Nutritional Hx/Data Height 1.78 m Height (Calculated Centimeters) 177.8 Current Weight (lbs) 72.575 kg Weight (Calculated Kilograms) 72.6 Weight (Calculated Grams) 88484.8 [place] Body Weight 166 LB (75.45 kg) % [place] Body Weight 96 Body Mass Index (BMI) 22.9 Weight Status Approriate GI Symptoms GI Symptoms None Last BM Not Noted Skin Integrity/Comment: Skin: WNL, Intact Armando: 17 Current %PO Good (75-100%) Estimated Nutritional Goals BEE in Kcals: Using Current wt Calories/Kcals/Kg 25-30 Protein: Using Current wt Protein g/k.0-1.2 Protein Calculated 73-87 Fluid: ml 7408-9059 ml (25-30 ml/kg) Nutritional Problem No current Nutrition Prob Problem No nutrition diagnosis at this time. Etiology N/A Signs/Symptoms: N/A Malnutrition Related to Morbid Obesity Malnutrition related to morbid obesity No Intervention/Recommendation Comments Continue Soft, NA2gm diet as tolerated. Expected Outcomes/Goals Expected Outcomes/Goals 1. PO intake to meet 75% of estimated nutritional needs. 2. Monitor PO intake, wt, nutrition related labs, and skin integrity. 3. F/U as moderate risk in 3-5 days, 01/23-01/25
[2019-01-26] MEDS: Multivitamin Tab PO SCH (09:00)
--- NOTE | 2019-01-27 07:55 | Progress Notes ---
DATE: 01/26/2019 DATE: 01/26/2019. Chart reviewed and the patient interviewed. Also, discussed the patient's condition with the staff and reviewed records and labs. The patient is still preoccupied and is still actively hallucinating and talking to himself. The patient also seems to be confused during the interview and is unable to answer questions coherently. Also, according to staff, the patient still had episodes of agitation and irritability. Otherwise, he is compliant with taking his medications with no side effects. ASSESSMENT: The patient is still agitated and is still psychotic and needs close monitoring. TREATMENT PLAN: Continue to monitor his behavior and condition closely. Also, continue adjusting psychotropic medications and work on behavioral modification. [facility]# [id number]
[2019-01-27] MEDS: Multivitamin Tab PO SCH (08:41)
--- NOTE | 2019-01-27 18:03 | Internal Medicine Prog Note ---
Internal Medicine Subjective - Subjective Service Date: 01/27/19 (no acute events reported) Patient is:: asleep Internal Medicine Objective - Physical Exam Vitals and I&O: Vital Signs Temp 97.9 F 01/27/19 13:50 Pulse 63 01/27/19 16:54 Resp 20 01/27/19 13:50 BP 137/60 01/27/19 16:54 Pulse Ox 98 01/27/19 13:50 Intake & Output 01/26/19 01/27/19 01/27/19 18:59 06:59 18:59 Intake Total 860 120 Balance 860 120 Intake: Oral 740 120 Other 120 Other: # Voids 3 3 # Bowel Movements 0 Active Medications: Current Medications Acetaminophen (Tylenol) 650 mg PO Q4HR PRN PRN Reason: Pain (Mild 1-3) Stop: 03/21/19 05:07 Acetaminophen (Tylenol) 650 mg PO Q4HR PRN PRN Reason: FEVER TEMPERATURE ABOVE 100 Stop: 03/21/19 05:10 Docusate Sodium (Colace) 200 mg PO DAILY [facility] Stop: 03/21/19 08:59 Last Admin: 01/27/19 08:41 Dose: 200 mg Hydralazine HCl (Apresoline) 25 mg PO BID [facility] Stop: 03/23/19 16:59 Last Admin: 01/27/19 16:54 Dose: 25 mg Isosorbide Mononitrate (Imdur) 30 mg PO DAILY [facility] Stop: 03/23/19 11:14 Last Admin: 01/27/19 08:40 Dose: 30 mg Losartan Potassium (Cozaar) 100 mg PO DAILY [facility] Stop: 03/21/19 08:59 Last Admin: 01/27/19 08:41 Dose: 100 mg Multivitamins/Vitamin C (Theragran) 1 tab PO DAILY [facility] Stop: 03/21/19 08:59 Last Admin: 01/27/19 08:41 Dose: 1 tab Quetiapine Fumarate (Seroquel) 100 mg PO HS [facility]; Protocol Stop: 03/23/19 20:59 Last Admin: 01/26/19 20:36 Dose: 100 mg Quetiapine Fumarate (Seroquel) 25 mg PO BID [facility]; Protocol Stop: 03/25/19 08:59 Last Admin: 01/27/19 16:54 Dose: 25 mg General: demented HEENT: NC/AT, PERRLA, EOMI Neck: Supple, No JVD, No thyromegaly, No LAD Lungs: CTAB Cardiovascular: RRR, Normal S1, Normal S2 Abdomen: soft, non-tender, thin, positive bowel sound Extremities: clear Internal Medicine Assmt/Plan - Assessment Assessment: ACUTE PSYCH DECOMPENSATION HISTORY OF SCHIZOPHRENIA ESSENTIAL HTN-OOC, improved HISTORY OF CVA WITH VASCULAR DEMENTIA HX OF DEPRESSION HISTORY OF CRD HISTORY OF BPH - Plan Plan: CONT WITH CURRENT PSYCH MEDS CONT WITH CURRENT BP MEDS PRN CLONIDINE Nutritional Asmnt/Malnutr-PDOC - Dietary Evaluation Malnutrition Findings (Please click <Entered> for more info): Nutritional Asmnt/Malnutrition Start: 01/20/19 13: 54 Text: Status: Active Freq: Protocol: Document 01/20/19 13:54 SEVERINO (Rec: 01/20/19 13:59 SEVERINO [email or web address]) Nutritional Asmnt/Malnutrition Patient General Information Nutritional Screening Moderate Risk Consult Diagnosis Psychosis Pertinent Medical Hx/Surgical Hx No H & P as of yet Subjective Information Consult: Underweight Pt is a 83-year-old male admitted on 01/20 d/t aggressive behavior. Received Consult for pt being classified as underweight, pt BMI is 22.97 (normal). Visited pt today at lunch, pt was eating lunch on his own, needed a reminder to get started eating. CUONG Reyes stated pt ate 100% breakfast this morning. Pt is confused, but self-feeds. Pt has noted Hx abnormal weight loss with associated protein calorie malnutrition in April 2018. Pt allowed me to check his shoulders, collar bone area and a little of his upper rib area. Pt had ribs visible with mild depressions and moderate muscle loss in clavicle bone region with some protrusion, bone more visible. Pt is currently eating well with prompting, will continue to monitor PO intake and continue nutrition focused physical examination when pt is available and willing. Anthropometrics HT: 510 WT: 160 LB (72.73 kg) BMI: 22.97 (Normal) GI/ Skin Integrity GI: WNL, Soft, Flat, Non- tender BM: Not Noted I/O: 120/Not Noted Skin: WNL, Intact Armando: 17 Diet Order: Soft, NA2gm Estimated Energy Needs: ( Geriatric, CBW) 2884-5735 kcals (25-30 kcals/ kg) 73-87g Pro (1.0-1.2 g/kg) 4878-3182 ml (25-30 ml/kg) Current Diet Order/ Nutrition Support Soft, NA2gm Pertinent Medications Colace, Cozaar, Theragran Pertinent Labs 01/19: Hgb/Hct 11.8/36.8, BUN/ Cr 28/1.35 Nutritional Hx/Data Height 1.78 m Height (Calculated Centimeters) 177.8 Current Weight (lbs) 72.575 kg Weight (Calculated Kilograms) 72.6 Weight (Calculated Grams) 15911.8 [place] Body Weight 166 LB (75.45 kg) % [place] Body Weight 96 Body Mass Index (BMI) 22.9 Weight Status Approriate GI Symptoms GI Symptoms None Last BM Not Noted Skin Integrity/Comment: Skin: WNL, Intact Armando: 17 Current %PO Good (75-100%) Estimated Nutritional Goals BEE in Kcals: Using Current wt Calories/Kcals/Kg 25-30 Protein: Using Current wt Protein g/k.0-1.2 Protein Calculated 73-87 Fluid: ml 4871-9882 ml (25-30 ml/kg) Nutritional Problem No current Nutrition Prob Problem No nutrition diagnosis at this time. Etiology N/A Signs/Symptoms: N/A Malnutrition Related to Morbid Obesity Malnutrition related to morbid obesity No Intervention/Recommendation Comments Continue Soft, NA2gm diet as tolerated. Expected Outcomes/Goals Expected Outcomes/Goals 1. PO intake to meet 75% of estimated nutritional needs. 2. Monitor PO intake, wt, nutrition related labs, and skin integrity. 3. F/U as moderate risk in 3-5 days, 01/23-01/25
--- NOTE | 2019-01-27 21:59 | Progress Notes ---
DATE: 01/27/2019 PSYCHIATRIC PROGRESS NOTE DATE: 01/27/2019. Chart reviewed and the patient interviewed. Also discussed the patient's condition with the staff and reviewed records and labs. The patient is still actively hallucinating and actively talking to himself. The patient also is preoccupied and the patient is still responding. The patient's blood pressure is slightly high and earlier today, the patient's blood pressure was 151/85. The patient has been sleeping better than before. Also, slight decrease in behavioral issues. Otherwise, the patient is compliant with taking his medications with no side effects of medications. ASSESSMENT: The patient is still agitated and psychotic. TREATMENT PLAN: Continue Seroquel 25 mg twice a day and 100 mg at bedtime. Also, continue to work on behavior modification and adjusting medications. [facility]# [id number]
[2019-01-28] MEDS: Multivitamin Tab PO SCH (08:46)
--- NOTE | 2019-01-28 19:47 | Progress Notes ---
DATE: PSYCHIATRIC PROGRESS NOTE SUBJECTIVE: Chart was reviewed and the patient interviewed. Also discussed the patient's condition with the staff and reviewed records and labs. The patient is still confused. The patient also is still actively hallucinating and is still talking to himself. The patient also is still wandering around the unit with difficulty following directions. Also, is still actively hallucinating and still talking to self and is still unable to follow any directions. Also, the patient still has difficulty staying asleep and waking up multiple times in the middle of the night with difficulty going back to sleep. Also, has been wandering into other patient's rooms. Also, he has been trying to take off his clothes. ASSESSMENT: The patient is still psychotic and is still agitated. TREATMENT PLAN: Continue Seroquel 25 mg twice a day and 100 mg at bedtime. We will add trazodone 25 mg at bedtime. Hopefully, that can help him to sleep at night and hopefully decrease his psychosis during the day. Also, continue to work on his agitation and confusion and continue to followup. JOB# [id number]
[2019-01-29] MEDS: Multivitamin Tab PO SCH (10:08)
--- NOTE | 2019-01-29 12:32 | Internal Medicine Prog Note ---
Internal Medicine Subjective - Subjective Service Date: 01/29/19 (no events) Patient is:: asleep Internal Medicine Objective - Physical Exam Vitals and I&O: Vital Signs Temp 98 F 01/28/19 20:00 Pulse 60 01/29/19 10:17 Resp 20 01/28/19 20:00 BP 165/63 01/29/19 10:17 Pulse Ox 96 01/28/19 20:00 Intake & Output 01/28/19 01/29/19 01/29/19 18:59 06:59 18:59 Intake Total 800 120 Output Total 1 Balance 800 119 Intake: Oral 800 120 Output: Urine/Stool Mix 1 Other: # Voids 3 1 # Bowel Movements 1 Active Medications: Current Medications Acetaminophen (Tylenol) 650 mg PO Q4HR PRN PRN Reason: Pain (Mild 1-3) Stop: 03/21/19 05:07 Acetaminophen (Tylenol) 650 mg PO Q4HR PRN PRN Reason: FEVER TEMPERATURE ABOVE 100 Stop: 03/21/19 05:10 Docusate Sodium (Colace) 200 mg PO DAILY [facility] Stop: 03/21/19 08:59 Last Admin: 01/29/19 10:08 Dose: 200 mg Hydralazine HCl (Apresoline) 25 mg PO BID [facility] Stop: 03/23/19 16:59 Last Admin: 01/29/19 10:17 Dose: 25 mg Isosorbide Mononitrate (Imdur) 30 mg PO DAILY [facility] Stop: 03/23/19 11:14 Last Admin: 01/29/19 10:17 Dose: 30 mg Lorazepam (Ativan) 0.5 mg PO Q4HR PRN; Protocol PRN Reason: Agitation Stop: 03/28/19 23:37 Last Admin: 01/28/19 01:22 Dose: 0.5 mg Losartan Potassium (Cozaar) 100 mg PO DAILY [facility] Stop: 03/21/19 08:59 Last Admin: 01/29/19 10:17 Dose: 100 mg Multivitamins/Vitamin C (Theragran) 1 tab PO DAILY [facility] Stop: 03/21/19 08:59 Last Admin: 01/29/19 10:08 Dose: 1 tab Quetiapine Fumarate (Seroquel) 100 mg PO HS [facility]; Protocol Stop: 03/23/19 20:59 Last Admin: 01/28/19 21:22 Dose: 100 mg Quetiapine Fumarate (Seroquel) 25 mg PO BID [facility]; Protocol Stop: 03/25/19 08:59 Last Admin: 01/29/19 10:08 Dose: 25 mg Trazodone HCl (Desyrel) 25 mg PO HS [facility]; Protocol Stop: 03/29/19 20:59 Last Admin: 01/28/19 21:22 Dose: 25 mg Zolpidem Tartrate (Ambien) 5 mg PO HS PRN PRN Reason: Insomnia Stop: 03/28/19 23:35 Last Admin: 01/27/19 23:44 Dose: 5 mg General: demented HEENT: NC/AT, PERRLA, EOMI Neck: Supple, No JVD, No thyromegaly, No LAD Lungs: CTAB Cardiovascular: RRR, Normal S1, Normal S2 Abdomen: soft, non-tender, thin, positive bowel sound Extremities: clear Internal Medicine Assmt/Plan - Assessment Assessment: ACUTE PSYCH DECOMPENSATION HISTORY OF SCHIZOPHRENIA ESSENTIAL HTN-OOC, improved HISTORY OF CVA WITH VASCULAR DEMENTIA HX OF DEPRESSION HISTORY OF CRD HISTORY OF BPH - Plan Plan: CONT WITH CURRENT PSYCH MEDS CONT WITH CURRENT BP MEDS PRN CLONIDINE Nutritional Asmnt/Malnutr-PDOC - Dietary Evaluation Malnutrition Findings (Please click <Entered> for more info): Nutritional Asmnt/Malnutrition Start: 01/20/19 13: 54 Text: Status: Active Freq: Protocol: Document 01/20/19 13:54 SEVERINO (Rec: 01/20/19 13:59 SEVERINO [email or web address]) Nutritional Asmnt/Malnutrition Patient General Information Nutritional Screening Moderate Risk Consult Diagnosis Psychosis Pertinent Medical Hx/Surgical Hx No H & P as of yet Subjective Information Consult: Underweight Pt is a 83-year-old male admitted on 01/20 d/t aggressive behavior. Received Consult for pt being classified as underweight, pt BMI is 22.97 (normal). Visited pt today at lunch, pt was eating lunch on his own, needed a reminder to get started eating. CUONG eRyes stated pt ate 100% breakfast this morning. Pt is confused, but self-feeds. Pt has noted Hx abnormal weight loss with associated protein calorie malnutrition in April 2018. Pt allowed me to check his shoulders, collar bone area and a little of his upper rib area. Pt had ribs visible with mild depressions and moderate muscle loss in clavicle bone region with some protrusion, bone more visible. Pt is currently eating well with prompting, will continue to monitor PO intake and continue nutrition focused physical examination when pt is available and willing. Anthropometrics HT: 510 WT: 160 LB (72.73 kg) BMI: 22.97 (Normal) GI/ Skin Integrity GI: WNL, Soft, Flat, Non- tender BM: Not Noted I/O: 120/Not Noted Skin: WNL, Intact Armando: 17 Diet Order: Soft, NA2gm Estimated Energy Needs: ( Geriatric, CBW) 5016-3831 kcals (25-30 kcals/ kg) 73-87g Pro (1.0-1.2 g/kg) 6972-0480 ml (25-30 ml/kg) Current Diet Order/ Nutrition Support Soft, NA2gm Pertinent Medications Colace, Cozaar, Theragran Pertinent Labs 01/19: Hgb/Hct 11.8/36.8, BUN/ Cr 28/1.35 Nutritional Hx/Data Height 1.78 m Height (Calculated Centimeters) 177.8 Current Weight (lbs) 72.575 kg Weight (Calculated Kilograms) 72.6 Weight (Calculated Grams) 29373.8 [place] Body Weight 166 LB (75.45 kg) % [place] Body Weight 96 Body Mass Index (BMI) 22.9 Weight Status Approriate GI Symptoms GI Symptoms None Last BM Not Noted Skin Integrity/Comment: Skin: WNL, Intact Armando: 17 Current %PO Good (75-100%) Estimated Nutritional Goals BEE in Kcals: Using Current wt Calories/Kcals/Kg 25-30 Protein: Using Current wt Protein g/k.0-1.2 Protein Calculated 73-87 Fluid: ml 8994-6663 ml (25-30 ml/kg) Nutritional Problem No current Nutrition Prob Problem No nutrition diagnosis at this time. Etiology N/A Signs/Symptoms: N/A Malnutrition Related to Morbid Obesity Malnutrition related to morbid obesity No Intervention/Recommendation Comments Continue Soft, NA2gm diet as tolerated. Expected Outcomes/Goals Expected Outcomes/Goals 1. PO intake to meet 75% of estimated nutritional needs. 2. Monitor PO intake, wt, nutrition related labs, and skin integrity. 3. F/U as moderate risk in 3-5 days, 01/23-01/25
[2019-01-30] MEDS: Multivitamin Tab PO SCH (09:23)
--- NOTE | 2019-01-30 17:18 | Internal Medicine Prog Note ---
Internal Medicine Subjective - Subjective Service Date: 01/30/19 (status quo) Patient is:: asleep Internal Medicine Objective - Physical Exam Vitals and I&O: Vital Signs Temp 96.2 F 01/30/19 14:00 Pulse 55 01/30/19 14:00 Resp 18 01/30/19 14:00 BP 153/62 01/30/19 14:00 Pulse Ox 96 01/30/19 14:00 Intake & Output 01/29/19 01/30/19 01/30/19 18:59 06:59 18:59 Intake Total 720 Balance 720 Intake: Oral 720 Other: # Voids 3 # Bowel Movements 0 Active Medications: Current Medications Acetaminophen (Tylenol) 650 mg PO Q4HR PRN PRN Reason: Pain (Mild 1-3) Stop: 03/21/19 05:07 Acetaminophen (Tylenol) 650 mg PO Q4HR PRN PRN Reason: FEVER TEMPERATURE ABOVE 100 Stop: 03/21/19 05:10 Docusate Sodium (Colace) 200 mg PO DAILY [facility] Stop: 03/21/19 08:59 Last Admin: 01/30/19 09:23 Dose: 200 mg Hydralazine HCl (Apresoline) 25 mg PO BID [facility] Stop: 03/23/19 16:59 Last Admin: 01/30/19 09:24 Dose: 25 mg Isosorbide Mononitrate (Imdur) 30 mg PO DAILY [facility] Stop: 03/23/19 11:14 Last Admin: 01/30/19 09:24 Dose: 30 mg Lorazepam (Ativan) 0.5 mg PO Q4HR PRN; Protocol PRN Reason: Agitation Stop: 03/28/19 23:37 Last Admin: 01/28/19 01:22 Dose: 0.5 mg Losartan Potassium (Cozaar) 100 mg PO DAILY [facility] Stop: 03/21/19 08:59 Last Admin: 01/30/19 09:25 Dose: 100 mg Multivitamins/Vitamin C (Theragran) 1 tab PO DAILY [facility] Stop: 03/21/19 08:59 Last Admin: 01/30/19 09:23 Dose: 1 tab Quetiapine Fumarate (Seroquel) 100 mg PO HS [facility]; Protocol Stop: 03/23/19 20:59 Last Admin: 01/29/19 21:09 Dose: 100 mg Quetiapine Fumarate (Seroquel) 25 mg PO BID [facility]; Protocol Stop: 03/25/19 08:59 Last Admin: 01/30/19 09:24 Dose: 25 mg Trazodone HCl (Desyrel) 25 mg PO HS [facility]; Protocol Stop: 03/29/19 20:59 Last Admin: 01/29/19 21:09 Dose: 25 mg Zolpidem Tartrate (Ambien) 5 mg PO HS PRN PRN Reason: Insomnia Stop: 03/28/19 23:35 Last Admin: 01/27/19 23:44 Dose: 5 mg General: demented HEENT: NC/AT, PERRLA, EOMI Neck: Supple, No JVD, No thyromegaly, No LAD Lungs: CTAB Cardiovascular: RRR, Normal S1, Normal S2 Abdomen: soft, non-tender, thin, positive bowel sound Extremities: clear Internal Medicine Assmt/Plan - Assessment Assessment: ACUTE PSYCH DECOMPENSATION HISTORY OF SCHIZOPHRENIA ESSENTIAL HTN-OOC, 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 HX OF DEPRESSION HISTORY OF CRD HISTORY OF BPH - Plan Plan: CONT WITH CURRENT PSYCH MEDS CONT WITH CURRENT BP MEDS PRN CLONIDINE Nutritional Asmnt/Malnutr-PDOC - Dietary Evaluation Malnutrition Findings (Please click <Entered> for more info): Nutritional Asmnt/Malnutrition Start: 01/20/19 13: 54 Text: Status: Active Freq: Protocol: Document 01/20/19 13:54 SEVERINO (Rec: 01/20/19 13:59 SEVERINO [id number]) Nutritional Asmnt/Malnutrition Patient General Information Nutritional Screening Moderate Risk Consult Diagnosis Psychosis Pertinent Medical Hx/Surgical Hx No H & P as of yet Subjective Information Consult: Underweight Pt is a 83-year-old male admitted on 01/20 d/t aggressive behavior. Received Consult for pt being classified as underweight, pt BMI is 22.97 (normal). Visited pt today at lunch, pt was eating lunch on his own, needed a reminder to get started eating. CUONG Reyes stated pt ate 100% breakfast this morning. Pt is confused, but self-feeds. Pt has noted Hx abnormal weight loss with associated protein calorie malnutrition in April 2018. Pt allowed me to check his shoulders, collar bone area and a little of his upper rib area. Pt had ribs visible with mild depressions and moderate muscle loss in clavicle bone region with some protrusion, bone more visible. Pt is currently eating well with prompting, will continue to monitor PO intake and continue nutrition focused physical examination when pt is available and willing. Anthropometrics HT: 510 WT: 160 LB (72.73 kg) BMI: 22.97 (Normal) GI/ Skin Integrity GI: WNL, Soft, Flat, Non- tender BM: Not Noted I/O: 120/Not Noted Skin: WNL, Intact Armando: 17 Diet Order: Soft, NA2gm Estimated Energy Needs: ( Geriatric, CBW) 6512-2735 kcals (25-30 kcals/ kg) 73-87g Pro (1.0-1.2 g/kg) 4283-5041 ml (25-30 ml/kg) Current Diet Order/ Nutrition Support Soft, NA2gm Pertinent Medications Colace, Cozaar, Theragran Pertinent Labs 01/19: Hgb/Hct 11.8/36.8, BUN/ Cr 28/1.35 Nutritional Hx/Data Height 1.78 m Height (Calculated Centimeters) 177.8 Current Weight (lbs) 72.575 kg Weight (Calculated Kilograms) 72.6 Weight (Calculated Grams) 31884.8 [place] Body Weight 166 LB (75.45 kg) % [place] Body Weight 96 Body Mass Index (BMI) 22.9 Weight Status Approriate GI Symptoms GI Symptoms None Last BM Not Noted Skin Integrity/Comment: Skin: WNL, Intact Armando: 17 Current %PO Good (75-100%) Estimated Nutritional Goals BEE in Kcals: Using Current wt Calories/Kcals/Kg 25-30 Protein: Using Current wt Protein g/k.0-1.2 Protein Calculated 73-87 Fluid: ml 3446-4329 ml (25-30 ml/kg) Nutritional Problem No current Nutrition Prob Problem No nutrition diagnosis at this time. Etiology N/A Signs/Symptoms: N/A Malnutrition Related to Morbid Obesity Malnutrition related to morbid obesity No Intervention/Recommendation Comments Continue Soft, NA2gm diet as tolerated. Expected Outcomes/Goals Expected Outcomes/Goals 1. PO intake to meet 75% of estimated nutritional needs. 2. Monitor PO intake, wt, nutrition related labs, and skin integrity. 3. F/U as moderate risk in 3-5 days, 01/23-01/25
[2019-01-31] MEDS: Multivitamin Tab PO SCH (08:08)
--- NOTE | 2019-01-31 12:46 | Internal Medicine Prog Note ---
Internal Medicine Subjective - Subjective Service Date: 01/31/19 (status quo) Internal Medicine Objective - Physical Exam Vitals and I&O: Vital Signs Temp 97.7 F 01/31/19 05:45 Pulse 72 01/31/19 08:08 Resp 18 01/31/19 08:00 BP 134/74 01/31/19 08:08 Pulse Ox 96 01/30/19 14:00 Intake & Output 01/30/19 01/31/19 01/31/19 18:59 06:59 18:59 Intake Total 1000 240 Balance 1000 240 Intake: Oral 1000 240 Other: # Voids 4 2 # Bowel Movements 0 Active Medications: Current Medications Acetaminophen (Tylenol) 650 mg PO Q4HR PRN PRN Reason: Pain (Mild 1-3) Stop: 03/21/19 05:07 Acetaminophen (Tylenol) 650 mg PO Q4HR PRN PRN Reason: FEVER TEMPERATURE ABOVE 100 Stop: 03/21/19 05:10 Docusate Sodium (Colace) 200 mg PO DAILY [facility] Stop: 03/21/19 08:59 Last Admin: 01/31/19 08:08 Dose: 200 mg Hydralazine HCl (Apresoline) 25 mg PO BID [facility] Stop: 03/23/19 16:59 Last Admin: 01/31/19 08:08 Dose: 25 mg Isosorbide Mononitrate (Imdur) 30 mg PO DAILY [facility] Stop: 03/23/19 11:14 Last Admin: 01/31/19 08:07 Dose: 30 mg Lorazepam (Ativan) 0.5 mg PO Q4HR PRN; Protocol PRN Reason: Agitation Stop: 03/28/19 23:37 Last Admin: 01/28/19 01:22 Dose: 0.5 mg Losartan Potassium (Cozaar) 100 mg PO DAILY [facility] Stop: 03/21/19 08:59 Last Admin: 01/31/19 08:08 Dose: 100 mg Multivitamins/Vitamin C (Theragran) 1 tab PO DAILY [facility] Stop: 03/21/19 08:59 Last Admin: 01/31/19 08:08 Dose: 1 tab Quetiapine Fumarate (Seroquel) 100 mg PO HS [facility]; Protocol Stop: 03/23/19 20:59 Last Admin: 01/30/19 20:12 Dose: 100 mg Quetiapine Fumarate (Seroquel) 25 mg PO BID [facility]; Protocol Stop: 03/25/19 08:59 Last Admin: 01/31/19 08:07 Dose: 25 mg Trazodone HCl (Desyrel) 25 mg PO HS [facility]; Protocol Stop: 03/29/19 20:59 Last Admin: 01/30/19 20:12 Dose: 25 mg Zolpidem Tartrate (Ambien) 5 mg PO HS PRN PRN Reason: Insomnia Stop: 03/28/19 23:35 Last Admin: 01/27/19 23:44 Dose: 5 mg General: demented HEENT: NC/AT, PERRLA, EOMI Neck: Supple, No JVD, No thyromegaly, No LAD Lungs: CTAB Cardiovascular: RRR, Normal S1, Normal S2 Abdomen: soft, non-tender, thin, positive bowel sound Extremities: clear Internal Medicine Assmt/Plan - Assessment Assessment: ACUTE PSYCH DECOMPENSATION HISTORY OF SCHIZOPHRENIA ESSENTIAL HTN-OOC, 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 HX OF DEPRESSION HISTORY OF CRD HISTORY OF BPH - Plan Plan: CONT WITH CURRENT PSYCH MEDS CONT WITH CURRENT BP MEDS PRN CLONIDINE Nutritional Asmnt/Malnutr-PDOC - Dietary Evaluation Malnutrition Findings (Please click <Entered> for more info): Nutritional Asmnt/Malnutrition Start: 01/20/19 13: 54 Text: Status: Active Freq: Protocol: Document 01/20/19 13:54 SEVERINO (Rec: 01/20/19 13:59 SEVERINO [id number]) Nutritional Asmnt/Malnutrition Patient General Information Nutritional Screening Moderate Risk Consult Diagnosis Psychosis Pertinent Medical Hx/Surgical Hx No H & P as of yet Subjective Information Consult: Underweight Pt is a 83-year-old male admitted on 01/20 d/t aggressive behavior. Received Consult for pt being classified as underweight, pt BMI is 22.97 (normal). Visited pt today at lunch, pt was eating lunch on his own, needed a reminder to get started eating. UCONG Reyes stated pt ate 100% breakfast this morning. Pt is confused, but self-feeds. Pt has noted Hx abnormal weight loss with associated protein calorie malnutrition in April 2018. Pt allowed me to check his shoulders, collar bone area and a little of his upper rib area. Pt had ribs visible with mild depressions and moderate muscle loss in clavicle bone region with some protrusion, bone more visible. Pt is currently eating well with prompting, will continue to monitor PO intake and continue nutrition focused physical examination when pt is available and willing. Anthropometrics HT: 510 WT: 160 LB (72.73 kg) BMI: 22.97 (Normal) GI/ Skin Integrity GI: WNL, Soft, Flat, Non- tender BM: Not Noted I/O: 120/Not Noted Skin: WNL, Intact Armando: 17 Diet Order: Soft, NA2gm Estimated Energy Needs: ( Geriatric, CBW) 3199-8965 kcals (25-30 kcals/ kg) 73-87g Pro (1.0-1.2 g/kg) 9341-8256 ml (25-30 ml/kg) Current Diet Order/ Nutrition Support Soft, NA2gm Pertinent Medications Colace, Cozaar, Theragran Pertinent Labs 01/19: Hgb/Hct 11.8/36.8, BUN/ Cr 28/1.35 Nutritional Hx/Data Height 1.78 m Height (Calculated Centimeters) 177.8 Current Weight (lbs) 72.575 kg Weight (Calculated Kilograms) 72.6 Weight (Calculated Grams) [address] Body Weight 166 LB (75.45 kg) % [place] Body Weight 96 Body Mass Index (BMI) 22.9 Weight Status Approriate GI Symptoms GI Symptoms None Last BM Not Noted Skin Integrity/Comment: Skin: WNL, Intact Armando: 17 Current %PO Good (75-100%) Estimated Nutritional Goals BEE in Kcals: Using Current wt Calories/Kcals/Kg 25-30 Protein: Using Current wt Protein g/k.0-1.2 Protein Calculated 73-87 Fluid: ml 8332-5768 ml (25-30 ml/kg) Nutritional Problem No current Nutrition Prob Problem No nutrition diagnosis at this time. Etiology N/A Signs/Symptoms: N/A Malnutrition Related to Morbid Obesity Malnutrition related to morbid obesity No Intervention/Recommendation Comments Continue Soft, NA2gm diet as tolerated. Expected Outcomes/Goals Expected Outcomes/Goals 1. PO intake to meet 75% of estimated nutritional needs. 2. Monitor PO intake, wt, nutrition related labs, and skin integrity. 3. F/U as moderate risk in 3-5 days, 01/23-01/25
[2019-02-01] MEDS: Multivitamin Tab PO SCH (09:17)
== END 2019-02-01 16:50 | DRG 885 ==
LOC: GERO 01-20 02:30
PROVIDERS: ADMIT Psychiatry & Neurology Psychiatry; ATTEND Psychiatry & Neurology Psychiatry
DX: F29 Unspecified psychosis not due to a substance or known physiological condition (principal); N18.9 Chronic kidney disease, unspecified; F03.91 Unspecified dementia, unspecified severity, with behavioral disturbance; N40.0 Benign prostatic hyperplasia without lower urinary tract symptoms; I12.9 Hypertensive chronic kidney disease with stage 1 through stage 4 chronic kidney disease, or unspecified chronic kidney disease; F32.9 Major depressive disorder, single episode, unspecified; F20.9 Schizophrenia, unspecified; Z79.899 Other long term (current) drug therapy; Z86.73 Personal history of transient ischemic attack (TIA), and cerebral infarction without residual deficits
CPT/HCPCS: 83036-90; Z7610